=== PATIENT | male | born 1960 | race Caucasian/White ===

== ENCOUNTER 2017-12-07 02:47 | Outpatient (CLI) | payer SELFPAY ==
[2017-12-07 09:47] LABS: CREATININE 1.87 mg/dL (0.70-1.30); Estimated GFR 37.14 (mL/min/1.73m2)
== END 2017-12-07 02:48 ==
PROVIDERS: PCP General Practice; Visit Provider Internal Medicine Nephrology
DX: N18.1 Chronic kidney disease, stage 1 (principal)
CPT/HCPCS: 36415; 82565

== ENCOUNTER 2018-02-22 12:03 | Outpatient (REF) | payer BC, SELFPAY ==
[2018-02-23 11:06] LABS: Campylobacter PCR SEE COMMENTS; Salmonella PCR SEE COMMENTS; Shiga Toxin PCR SEE COMMENTS; Shigella/Enteroinvasive Ecoli SEE COMMENTS
== END 2018-02-22 12:23 ==
LOC: LBN 12:03
PROVIDERS: PCP General Practice; Visit Provider General Practice
DX: R19.7 Diarrhea, unspecified (principal)
CPT/HCPCS: 87505; 83630; 87177; 87324

== ENCOUNTER 2018-04-02 07:13 | Day surgery (SDC) | payer BC, SELFPAY ==
--- NOTE | 2018-04-02 06:21 | W.COLOREPORT ---
Date of service: 04/02/18 Time of Service: 07:55 Colonoscopy Report Date of procedure: 04/02/18 Pre-op diagnosis general: Family histoey of colon cancer/ screening colonoscopy Post-op diagnosis procedure note: other (sigmoid polyps) Procedure: Colonoscopy with polypectomy by cold forceps Surgeon: Ledy Johnson Anesthesia proc note operative: MAC (Teodora Higgins CRNA) Estimated blood loss (mL): 3 Pathology: other (sigmoid polyp x3) Complications: None Disposition: same day Indications: Mr. Bowers is a pleasant 57-year-old gentleman with a family history of colon cancer who was seen in the office for another screening colonoscopy. His last colonoscopy was in 2009 and was normal. He is supposed to have colonoscopies every 5 years. Risks, benefits and complications were reviewed with him and he wished to proceed. No guarantees were given or implied. Prep: Miralax/Dulcolax Procedure Start Time: 07:55 Procedure End Time: 08:28 Retraction Time: 18 minutes Findings: # small and sessile polyps in the distal sigmoid colon/ proximal rectum Procedure Description: After informed consent was obtained the patient was taken to the procedure room and placed in a left decubitous position. Monitors were applied and a time out was done. The patients name, date of , procedure, allergies to medications and metal in their body was reviewed. The patient was then sedated. Once sedated and comfortable a rectal exam was done. External exam was normal. Internal exam revealed a normal sphincter tone and no palpable masses. The prostate felt smooth but large. The scope was then introduced and retro-flexed. Grade 1 internal hemorrhoids were identified. The scope was then advanced to the cecum without difficulty. The TI and appendiceal orifice were identified. The prep was good. The scope was then slowly retracted over 18 minutes back into the rectum. 3 small, sessile polyps were removed in the distal sigmoid/ proximal rectum. The scope was removed and the patient was woken up and taken back to Same day surgery in stable condition. The patient tolerated the procedure well and there were no immediate complications. Follow up: The patient should follow up in 3-5 years unless they develop changes in bowel habits or other new gastrointestinal complaints.
--- NOTE | 2018-04-02 06:24 | PDOC.DSDIS_ITS ---
Discharge Plan Disposition Patient Disposition: HOME Condition: Good Discharge Details Reason For Visit: SCREENING Attending Provider: Ledy Johnson Primary Care Provider: Paco Meehan Home Meds and New Rx's Prescriptions: Discontinued bisacodyl [Dulcolax (bisacodyl)] 5 mg tablet,delayed release (DR/EC) 5 mg PO ONCE Qty: 4 RF: 0 polyethylene glycol 3350 17 gram/dose powder 255 g PO ONCE Qty: 255 RF: 0 Discharge Instructions Instructions: Colonoscopy (DC) Additional Instructions: Findings: 3 small polyps Follow up: 3-5 years Please call if you develop: fevers >101.5 Nausea or vomiting Abdominal pain that is not transient DAY SURGERY UNIT POST COLONOSCOPY INSTRUCTIONS 1. Because there will be medication in your system for the next 24 hours, you may feel a little sleepy. Your coordination will be affected. Therefore: a. Do not drive or operate dangerous equipment for 24 hours. b. Do not drink alcohol beverages for 24 hours (not even beer). c. Plan to go home and rest for the day. 2. Generally there are no restrictions on your activity after a day or so has gone by, but you may feel a bit fatigued for a few days. 3 After you arrive home you may have a light meal and return to a normal diet as you can tolerate it without feeling sick to your stomach. 4. After surgery, you may feel pain or discomfort. This should be only transient , but if it persists please contact your doctor. 5. If there are any questions regarding the findings of your procedure, please feel free to contact your doctor. 6. If you are unable to contact your doctor with a problem, contact the hospital at [phone]. 7. Continue all your regular medications unless directed otherwise. I understand the above instructions and have no questions. Signature of Patient or Responsible Adult Escort Date/Time Name of Responsible Adult Escort Signature of Nurse Date/Time Activity:: Activity as Tolerated Diet:: As Tolerated Discharge Orders Discharge Orders: Discharge Order (Routine); Ordered 04/02/18 Ordered By: Ledy Johnson DS: Diagnosis Discharge Diagnosis (1) Colon polyps: Status: Acute (2) Family history of colon cancer in mother: Status: Acute (3) S/P colonoscopy: Status: Acute
[2018-04-02 07:24] VITALS: BP 129/85; PULSE 91; RESP 18; TEMP 36.2; O2SAT 100
[2018-04-02] MEDS: Lactated Ringers 1,000 ML 80 ML IV (07:48)
--- NOTE | 2018-04-02 08:25 | BOWEL_PTH ---
PATIENT: Enrike Bowers LOC: [facility] U#:[id number] AGE/SX: 57/M ROOM: RE04/02/[address]: Ledy Johnson MD : 1960 BED: DIS: 04/02/2018 SPEC #: [id number] RECD: 04/02/18 12:21 STATUS: RAYMUNDO REQ #: [id number] DEMAR: 04/02/18 08:[address]: Ledy Johnson DEPT: Surgical Specimen RECD BY: Michaela Scherer ENTERED: 04/02/18 12:21 SP TYPE: Bowel OTHR DR: Paco Meehan Tissues: 1 - BIOPSY BOWEL Procedures: GROSS AND MICRO LEVEL 4 Comments: [id number]
[2018-04-02 09:04] VITALS: BP 127/87; PULSE 60; RESP 16; TEMP 36.7; O2SAT 98
== END 2018-04-02 09:34 | disposition home or self-care (01) ==
LOC: SUR 07:13
PROVIDERS: PCP General Practice; Visit Provider Surgery
PROC: 0DJD8ZZ Inspection of Lower Intestinal Tract, Via Natural or Artificial Opening Endoscopic (ICD-10-PCS; CPT 45378; principal; 2018-04-02 08:30)
DX: Z12.11 Encounter for screening for malignant neoplasm of colon (principal); K63.5 Polyp of colon; K64.0 First degree hemorrhoids; Z80.0 Family history of malignant neoplasm of digestive organs; I10 Essential (primary) hypertension
CPT/HCPCS: 45380; 88305

== ENCOUNTER 2018-04-14 09:04 | Emergency (ER) | payer BC, SELFPAY ==
[2018-04-14 09:08] VITALS: BP 143/90; PULSE 95; RESP 16; TEMP 36.7; O2SAT 99
--- NOTE | 2018-04-14 09:27 | ED.GENADUL_ITS ---
Discharge Plan Disposition Patient Disposition: HOME Condition: Good Discharge Details Chief Complaint: Abd Prob Clinical Impression: Enlarged prostate, Abdominal fullness Primary Care Provider: Paco Meehan ED Provider: Jsoeph Jaffe Home Meds and New Rx's Prescriptions: New tamsulosin [Flomax] 0.4 mg capsule 0.4 mg PO DAILY Qty: 7 RF: 0 Discharge Instructions Instructions: Benign Prostatic Hypertrophy (ED), Gas and Bloating (ED) Additional Instructions: Please take the medication as directed as a trial for your symptoms. If you notice any lightheadedness please stop taking it right away. Please follow-up with Dr. Carrasco at your scheduled appointment this week. If you notice any worsening of your symptoms, or any new symptoms such as vomiting, diarrhea, fever, chills, shortness of breath, chest pain, numbness, weakness, or fainting , please return immediately to the emergency department for reevaluation. Please follow up with your primary care provider as soon as possible for reassessment and reevaluation. As always, it was a pleasure participating in your medical care today. Referrals: Paco Meehan MD [Primary Care Provider] - Medical Decision Making This is a very pleasant 57-year-old male who presents for symptoms of abdominal pain for the last 3+ months, as well as shortness of breath and fatigue for the last month, slightly worsening abdominal pain in the last night. He has had a colonoscopy within the past 12 days with no significant abnormalities aside for 3 polyps at that point. He denies any significant chest pain, arm neck or shoulder pain. He does have some mild chest pressure with his associated shortness of breath for the last month. Denies PE risk factors such as recent long car rides, immobilization, recent surgery, prior history of DVT or PE, family history of PE or DVT, morbid obesity, exogenous estrogen and smoking, hemoptysis, history of recent cancer chemotherapy. The patient is PERC positive secondary to his age, however Wells score is 0 placing him in the lowest risk group. The patient's symptoms are certainly slightly atypical for any acute process especially with the chronicity of this. He shows no concerning abdominal exam findings, and he has reassuring vital signs. Patient did have a nephrectomy in the past secondary to his renal cancer, because of this he has chronic decreased GFR and creatinine. We will order a d-dimer, get a CT scan of his chest abdomen and pelvis due to the lack of focality with his symptomatology, and the risk for malignancy. We will evaluate for cardiac etiology which I feel is definitely less likely. We will rehydrate, reassess. The patient's epigastric and abdominal pain I am concern for potential gastric ulcer. He has not yet had an endoscopy, this symptoms seem to be clinically consistent with gastritis. We will perform a GI cocktail as well at this time. EKG 9: 29 Rate 67, intervals normal, sinus rhythm, no ST elevations or depressions, no T wave inversions, no Q waves. Normal EKG 1:02 PM Patient's laboratory workup has returned and is negative for any acute process. No white count, normal electrolytes, creatinine is elevated at 2.09 however this is near his chronic baseline. Patient was rehydrated with 1 L of normal saline. Patient's troponin, lipase, and other laboratory workup has returned benign. The patient's TSH was slightly high at 4.43, however reflex T4 was normal. EKG benign. Patient CT scan of his chest abdomen and pelvis demonstrates no acute process. No evidence of GI issue, obstruction, or other significant abnormality. The prostate is enlarged though, greater than 5 cm. Recommended urology for follow-up. Patient does have a close relationship with Dr. Carrasco, and is already scheduled to have an appointment later this week. He has no symptoms of hematuria or urinary tract infection. Unfortunately although the patient has no significant pain he still does have mild fullness in his abdomen. His left upper quadrant pain has improved. The reason for the fullness I am unsure, may be accommodation of constipation, or less likely secondary to his prostate. He shows no signs of severe retention. With reassuring vital signs, normal workup, negative imaging I do feel that he is safe for discharge home with close follow-up with his PCP. I did discuss with him his TSH levels, as well as the size of his prostate needing follow-up with Danilo. Additionally we will do a trial of Flomax secondary to the patient's sensation of fullness, as well as his notable prostatic hypertrophy, feel that though unlikely this may be a component of the cause of his symptomatology. Additionally I did discuss with him potential outpatient testing for testosterone levels. With no signs of an acute abnormality, I feel the patient is safe for discharge home with close follow-up. We discussed red flags which to return the patient understands. I have extensively reviewed the treatment plan and discharge instructions with the patient and their family. I have addressed all patient concerns at this time. The patient and family was made aware of what symptoms to monitor for that would warrant a return to the emergency department. Discussed the plan with the patient and family, they demonstrate verbal understanding and agreement with our assessment and plan at this time. CLINICAL HISTORY: 57 years old, male; Signs and symptoms; Abdominal tenderness; Shortness of breath; Prior surgery; Surgery date: 6+ months; Surgery type: Nephrectomy x2 years ago; Patient HX: SOB x6 weeks, epigastric pain x6 weeks. TECHNIQUE: Axial computed tomography images of the abdomen and pelvis without contrast. All CT scans at this facility use at least one of these dose optimization techniques: automated exposure control; mA and/or kV adjustment per patient size (includes targeted exams where dose is matched to clinical indication); or iterative reconstruction. Coronal and sagittal reformatted images were created and reviewed. COMPARISON: CT CHEST FOR PULMONARY EMBOLUS 09/16/2016 9:02 PM FINDINGS: Lower thorax: See report for CT chest ABDOMEN: Liver: Normal. No mass. Gallbladder and bile ducts: Normal. No calcified stones. No ductal dilation. Pancreas: Normal. No ductal dilation. Spleen: Normal. No splenomegaly. Adrenals: Normal. No mass. Kidneys and ureters: Left nephrectomy 2.4 cm cyst in the lateral aspect of the right kidney. 1 cm cyst anterior right kidney Stomach and bowel: Normal. No obstruction. No mucosal thickening. Appendix: No evidence of appendicitis. PELVIS: Bladder: Unremarkable as visualized. Reproductive: The prostate is enlarged, greater than 5 cm. Recommend urology consult ABDOMEN and PELVIS: Intraperitoneal space: Mild amount of ascites adjacent to the liver Bones/joints: No acute fracture. No dislocation. Soft tissues: Unremarkable. Vasculature: Normal. No abdominal aortic aneurysm. Lymph nodes: Normal. No enlarged lymph nodes. IMPRESSION: The prostate is enlarged, greater than 5 cm. Recommend urology consult Left nephrectomy Dictated and Authenticated by: Raoul Muir MD. HPI General Date/Time Provider Initiated Documentation: 04/14/18 09:09 . HPI Narrative: This is a pleasant 57-year-old with a past medical history of renal cancer with subsequent left nephrectomy, and no other significant medical problems who presents today for evaluation of nominal pain and mild shortness of breath and notable fatigue, all of which have been present for the last 3 months. The abdominal pain did worsen today though. Regards to his chronic abdominal pain the patient states that he has a strong family history of colon cancer, his last colonoscopy was on 04/02 where 3 polyps were found. No other significant abnormalities. Endoscopy was not performed at that time, and he is getting a referral to [facility] for further workup in April. Patient has had some mild shortness of breath and notable fatigue over the last month as well. The shortness of breath is present with activity. He denies any associated chest pressure, arm neck or shoulder pain. He denies any history of cardiac disease. He does have a mild amount of chest heaviness associated with the symptoms of shortness of breath during exertion. He has had 2 stress tests in the past, the most recent was 1 year ago. He has no cardiac risk factors of tobacco abuse, family history, high cholesterol, hypertension, or diabetes. Patient does exercise roughly 3-4 times per week, however over the last month because of the shortness of breath and fatigue she has not been exercising. Regards to the patient's abdominal pain he states that last night he did get notably worse, he describes it as a fullness in his epigastric, left and right sides of his abdomen. He has had no vomiting or diarrhea. He has been eating well. He does have some mild associated constipation, but this is been chronic for the last few months. He denies any hematochezia, melena, acholic stool, hematemesis. He does admit to an occasional burning sensation in his left upper quadrant, in his left chest. He denies any particular aggravating or relieving component of his symptoms. Patient denies any other complaints at this time. Related Data Home Medications Medication Instructions Recorded Confirmed tamsulosin [Flomax] 0.4 mg PO DAILY #7 cap 04/14/18 Previous Rx's Medication Instructions Recorded tamsulosin [Flomax] 0.4 mg PO DAILY #7 cap 04/14/18 Allergies Allergy/AdvReac Type Severity Reaction Status Date / Time Iodinated Contrast- Oral and AdvReac Severe Other (See Unverified 04/14/18 09:23 IV Dye Comment) lisinopril AdvReac Severe COUGH & Verified 04/14/18 09:15 ?ANGIOEDEMA General Stated Complaint: Abd Prob MIAH: 3 Review of Systems Review of Systems All systems reviewed & are unremarkable except as noted in HPI and below PFSH Medical History Colon polyps (Acute ~04/02/18) Diarrhea (Acute) Atopic dermatitis HTN (hypertension) Surgical History S/P colonoscopy (Acute ~04/02/18) Radical Nephrectomy (05/27/16) Family History Mother Personal history of malignant neoplasm Stroke Father No problems noted. Sister Essential hypertension Sister No problems noted. Social History adopted: No household members: spouse and children Smoking/Tobacco Use Status: Never alcohol intake: former substance use type: does not use Exam Narrative Exam Narrative: 1.Const: Well-nourished, Well-developed, appearing stated age 2.Eyes: PERRL, no conjunctival injection, and symmetrical lids. 3.ENT: Atraumatic external nose and ears. Moist MM. Neck: Symmetric, trachea midline, No thyromegaly. 4.CVS: +S1/S2, No murmurs or gallops. Peripheral pulses 2+ and equal in all extremities. Brisk capillary refill in all extremities. 5.RESP: Unlabored respiratory effort. Clear to auscultation bilaterally. No wheezes rales or rhonchi 6.GI: Soft, Nontender/Nondistended, No hepatosplenomegaly. No guarding or rebound. Negative Cevallos sign, no pain at McBurney's point. Negative obturator and psoas sign. No flank or CVA tenderness. Genital exam demonstrates normal male genitalia with a circumcised penis, non-tender testicles, normal cremasteric reflex. No evidence of hernia in the scrotum or the groin. 7.MSK: Normocephalic/Atraumatic, Extremities w/o deformity or ttp No cyanosis or clubbing, Normal movement of all extremities 8.Skin: Warm, Dry. No rashes or lesions. 9.Neuro: analytics director II-XII grossly intact. Sensation grossly intact, no focal neurologic deficits. 10.Psych: (AAO) x3. Appropriate mood and affect Course Vital Signs Temperature 36.7 C 04/14/18 09:08 Pulse 95 H 04/14/18 09:08 Respiratory Rate 16 04/14/18 09:08 Blood Pressure 143/90 H 04/14/18 09:08 Pulse Oximetry 99 04/14/18 09:08 Temperature 36.7 C 04/14/18 09:08 Temperature Source Skin 04/14/18 09:08 Pulse 95 H 04/14/18 09:08 Respiratory Rate 16 04/14/18 09:08 Respiratory Effort Non-Labored 04/14/18 09:13 Blood Pressure 143/90 H 04/14/18 09:08 Pulse Oximetry 99 04/14/18 09:08 Pain Level 6 04/14/18 09:08
[2018-04-14] MEDS: Dicyclomine 20 MG TAB PO (09:28)
[2018-04-14] MEDS: Normal Saline 1,000 ML 1000 ML IV (09:42)
[2018-04-14 09:47] LABS: Abs Immature Grans 0.01 k/cumm (0.0-0.09); Absolute Basophil Count 0.03 k/cumm (0.0-0.2); Absolute Eosinophil Count 0.41 k/cumm (0.0-0.7); Absolute Monocyte Count 0.44 k/cumm (0.11-0.7); Absolute Neutrophil Count 2.99 k/cumm (1.2-6.7); Basophils % 0.6; Eosinophils % 7.6; HCT 38.8 % (40.0-50.0); HGB 13.6 g/dL (13.5-17.5); Immature Grans % 0.2; Lymphocytes % 27.9; Mean Corp. HGB Concentration 35.1 g/dL (32.0-36.0); Mean Corpuscular Hemoglobin 30.9 pg (27.0-33.0); Mean Corpuscular Volume 88.2 fL (80-95); Mean Platelet Volume 10.5 fL (8.0-11.0); Monocytes % 8.2; Neutrophils % 55.5; Platelet Count 199 x1000/uL (130-400); RBC Distribution Width 12.1 % (11.8-14.1); White Blood Cell Count 5.38 k/cumm (4.4-10.8)
[2018-04-14 10:18] LABS: ALT 47 U/L (12-78); AST 29 U/L (15-37); Albumin 3.7 g/dL (3.4-5.0); Alkaline Phosphatase 57 U/L (46-116); Anion Gap 5.1 mmol/L (3-11); BUN 20 mg/dL (7-18); Bilirubin, Total 0.6 mg/dL (0.2-1.0); CO2 31.9 mmol/L (21.0-32.0); CREATININE 2.09 mg/dL (0.70-1.30); Calcium 8.9 mg/dL (8.5-10.1); Chloride 104 mmol/L (98-107); Estimated GFR 32.67 (mL/min/1.73m2); Glucose 85 mg/dL (70-100); Lipase 151 U/L (73-393); Potassium 4.2 mmol/L (3.5-5.1); Sodium 141 mmol/L (136-145); TSH 4.43 uIU/mL (0.358-3.74); Total Protein 7.6 g/dL (6.4-8.2)
[2018-04-14 10:19] LABS: Troponin I < 0.02 ng/mL (0.00-0.06)
[2018-04-14 10:20] LABS: D-Dimer 451 ng/mlFEU (<500)
[2018-04-14 11:17] LABS: FREE T4 0.98 ng/dL (0.76-1.46)
--- NOTE | 2018-04-14 11:45 | DI.CT_ITS ---
SYMPTOM/DIAGNOSIS: SOB, GENERALIZED ABD PAIN, EPIGASTRIC PAIN CT CHEST, ABDOMEN AND PELVIS: 04/14 CT examination of the chest, abdomen and pelvis was performed with oral contrast administration only. The lungs are clear and the tracheobronchial tree appears intact. Incidental 2 mm right basilar intrapulmonary nodule unchanged from 01/20/17. Tracheobronchial tree appears intact. No gross mediastinal adenopathy. No gross thoracic aortic aneurysm. Normal diameter of pulmonary arteries. No pleural effusion or pneumothorax. Liver and spleen are unremarkable by noncontrast criteria. Pancreas appears intact. No biliary dilatation. Gallbladder is unremarkable by noncontrast criteria. Abdominal aorta is of normal diameter. Appendix not specifically identified but there is no evidence of appendicitis or diverticulitis. Previous left nephrectomy noted, unremarkable appearance of left renal fossa. Right kidney normal in appearance except for previously noted right renal cyst. No urinary tract calcification seen. No evidence of bowel obstruction. No retroperitoneal or pelvic adenopathy identified. CONCLUSION: No evidence of acute process involving the chest, abdomen or pelvis. Previous left nephrectomy noted.
[2018-04-14 11:47] LABS: Bilirubin Negative (Negative); Blood Trace-intact (Negative); Clarity Clear; Glucose Negative (Negative); Ketones Negative (Negative); Leukocyte Esterase Negative (Negative); Nitrite Negative (Negative); Urobilinogen 0.2 EU/dL (Up TO 0.2); pH 6.5 (5-8)
[2018-04-14 11:58] LABS: Bacteria Negative HPF (Negative); C & S Indicated? No; Casts Negative LPF (Negative); Crystals Negative HPF (Negative); Epithelial Cells Negative HPF (Negative); Mucus Negative (Negative); RBC Negative (0-2); WBC Negative HPF (0-5)
--- NOTE | 2018-04-14 12:08 | DI.VRAD_ITS ---
EXAM: CT Chest Without Contrast EXAM DATE/TIME: 04/14/2018 9:30 AM CLINICAL HISTORY: 57 years old, male; Signs and symptoms; Abdominal tenderness; Shortness of breath; Prior surgery; Surgery date: 6+ months; Surgery type: Nephrectomy x2 years ago; Patient HX: SOB x6 weeks, epigastric pain x6 weeks. TECHNIQUE: Axial computed tomography images of the chest without intravenous contrast. All CT scans at this facility use at least one of these dose optimization techniques: automated exposure control; mA and/or kV adjustment per patient size (includes targeted exams where dose is matched to clinical indication); or iterative reconstruction. Coronal and sagittal reformatted images were created and reviewed. COMPARISON: CT CHEST FOR PULMONARY EMBOLUS 09/16/2016 9:02 PM FINDINGS: Lungs: No focal consolidation. The Bronchiectasis Pleural space: Normal. No pneumothorax. No pleural effusion. Heart: Coronary artery calcifications may indicate coronary artery disease Aorta: Normal. No aortic aneurysm. Lymph nodes: Unremarkable. No enlarged lymph nodes. Bones/joints: Unremarkable. No acute fracture. Soft tissues: Unremarkable. IMPRESSION: No acute process EXAM: CT Abdomen and Pelvis Without Contrast EXAM DATE/TIME: 04/14/2018 9:30 AM CLINICAL HISTORY: 57 years old, male; Signs and symptoms; Abdominal tenderness; Shortness of breath; Prior surgery; Surgery date: 6+ months; Surgery type: Nephrectomy x2 years ago; Patient HX: SOB x6 weeks, epigastric pain x6 weeks. TECHNIQUE: Axial computed tomography images of the abdomen and pelvis without contrast. All CT scans at this facility use at least one of these dose optimization techniques: automated exposure control; mA and/or kV adjustment per patient size (includes targeted exams where dose is matched to clinical indication); or iterative reconstruction. Coronal and sagittal reformatted images were created and reviewed. COMPARISON: CT CHEST FOR PULMONARY EMBOLUS 09/16/2016 9:02 PM FINDINGS: Lower thorax: See report for CT chest ABDOMEN: Liver: Normal. No mass. Gallbladder and bile ducts: Normal. No calcified stones. No ductal dilation. Pancreas: Normal. No ductal dilation. Spleen: Normal. No splenomegaly. Adrenals: Normal. No mass. Kidneys and ureters: Left nephrectomy 2.4 cm cyst in the lateral aspect of the right kidney. 1 cm cyst anterior right kidney Stomach and bowel: Normal. No obstruction. No mucosal thickening. Appendix: No evidence of appendicitis. PELVIS: Bladder: Unremarkable as visualized. Reproductive: The prostate is enlarged, greater than 5 cm. Recommend urology consult ABDOMEN and PELVIS: Intraperitoneal space: Mild amount of ascites adjacent to the liver Bones/joints: No acute fracture. No dislocation. Soft tissues: Unremarkable. Vasculature: Normal. No abdominal aortic aneurysm. Lymph nodes: Normal. No enlarged lymph nodes. IMPRESSION: The prostate is enlarged, greater than 5 cm. Recommend urology consult Left nephrectomy Dictated and Authenticated by: Raoul Muir MD. Ordering:WILLIAMS Ruiz MD
[2018-04-14 12:29] VITALS: BP 125/85; PULSE 68; RESP 16; O2SAT 100
== END 2018-04-14 13:13 | disposition home or self-care (01) ==
PROVIDERS: Emergency Provider Student in an Organized Health Care Education/Training Program; PCP General Practice
DX: R10.13 Epigastric pain (principal); R14.0 Abdominal distension (gaseous); R06.02 Shortness of breath; Z90.5 Acquired absence of kidney; I10 Essential (primary) hypertension
CPT/HCPCS: 36415; 71250; 80053; 83690; 93005; 96360; 96361; 99285; 74176; 81003; 81015; 84439; 84443; 84484; 85025; 85379; 93010

== ENCOUNTER 2018-04-23 00:14 | Outpatient (CLI) | payer BC, SELFPAY | END 2018-04-23 00:34 | PROVIDERS: PCP General Practice; Visit Provider Nurse Practitioner Gerontology | DX: C64.2 Malignant neoplasm of left kidney, except renal pelvis (principal); I10 Essential (primary) hypertension; R35.1 Nocturia; N40.0 Benign prostatic hyperplasia without lower urinary tract symptoms | CPT/HCPCS: 99213 ==

== ENCOUNTER 2018-09-05 07:56 | Outpatient (CLI) | payer BC, SELFPAY ==
[2018-09-05 11:09] LABS: Mean Corpuscular Hemoglobin 30.4 pg (27.0-33.0); Mean Corpuscular Volume 86.8 fL (80-95); Mean Platelet Volume 10.5 fL (8.0-11.0); Platelet Count 218 x1000/uL (130-400); RBC 4.61 m/cumm (4.50-6.00); RBC Distribution Width 12.2 % (11.8-14.1); White Blood Cell Count 6.82 k/cumm (4.4-10.8)
[2018-09-05 15:12] LABS: ALT 41 U/L (12-78); AST 26 U/L (15-37); Alkaline Phosphatase 55 U/L (46-116); Anion Gap 8.4 mmol/L (3-11); BUN 25 mg/dL (7-18); Bilirubin, Total 0.5 mg/dL (0.2-1.0); CO2 28.6 mmol/L (21.0-32.0); CREATININE 1.71 mg/dL (0.70-1.30); Calcium 8.8 mg/dL (8.5-10.1); Chloride 100 mmol/L (98-107); Estimated GFR 41.18 (mL/min/1.73m2); Glucose 83 mg/dL (70-100); Potassium 4.5 mmol/L (3.5-5.1); Sodium 137 mmol/L (136-145); Total Protein 7.7 g/dL (6.4-8.2)
== END 2018-09-05 08:16 ==
PROVIDERS: PCP General Practice; Visit Provider Urology
DX: C64.2 Malignant neoplasm of left kidney, except renal pelvis (principal)
CPT/HCPCS: 36415; 80053; 85027

== ENCOUNTER 2018-09-26 00:43 | Outpatient (CLI) | payer BC, SELFPAY ==
--- NOTE | 2018-09-26 08:31 | DI.RAD_ITS ---
SYMPTOM/DIAGNOSIS: TRAUMA, PAIN LEFT ELBOW: Three views. No acute fracture or dislocation is seen. The soft tissues are unremarkable. IMPRESSION: No acute abnormality.
== END 2018-09-26 01:03 ==
PROVIDERS: PCP General Practice; Visit Provider General Practice
DX: M25.522 Pain in left elbow (principal)
CPT/HCPCS: 73080

== ENCOUNTER 2019-04-01 00:16 | Outpatient (CLI) | payer BC, SELFPAY ==
[2019-04-01 08:09] LABS: HCT 38.6 % (40.0-50.0); HGB 13.4 g/dL (13.5-17.5); Mean Corp. HGB Concentration 34.7 g/dL (32.0-36.0); Mean Corpuscular Hemoglobin 30.4 pg (27.0-33.0); Mean Corpuscular Volume 87.5 fL (80-95); Mean Platelet Volume 10.7 fL (8.0-11.0); Platelet Count 218 x1000/uL (130-400); RBC 4.41 m/cumm (4.50-6.00); RBC Distribution Width 12.3 % (11.8-14.1); White Blood Cell Count 5.67 k/cumm (4.4-10.8)
[2019-04-01 08:51] LABS: ALT 40 U/L (16-63); AST 25 U/L (15-37); Albumin 3.7 g/dL (3.4-5.0); Alkaline Phosphatase 47 U/L (46-116); Anion Gap 7.1 mmol/L (3-11); BUN 26 mg/dL (7-18); Bilirubin, Total 0.4 mg/dL (0.2-1.0); CO2 29.9 mmol/L (21.0-32.0); CREATININE 1.77 mg/dL (0.70-1.30); Calcium 8.7 mg/dL (8.5-10.1); Chloride 102 mmol/L (98-107); Estimated GFR 39.44 (mL/min/1.73m2); Glucose 92 mg/dL (74-106); Potassium 4.8 mmol/L (3.5-5.1); Sodium 139 mmol/L (136-145); Total Protein 7.2 g/dL (6.4-8.2)
== END 2019-04-01 00:36 ==
PROVIDERS: Urology; PCP General Practice; Visit Provider General Practice
DX: C64.2 Malignant neoplasm of left kidney, except renal pelvis (principal)
CPT/HCPCS: 36415; 80053; 85027

== ENCOUNTER 2019-04-03 01:20 | Outpatient (CLI) | payer BC, SELFPAY ==
[2019-04-03] MEDS: Omnipaque 350 MG/ML 50 ML BTL IJ (08:41)
[2019-04-03] MEDS: Breeza Beverage 473 ML BTL PO ×2 (08:43)
--- NOTE | 2019-04-03 09:07 | DI.CT_ITS ---
EXAM: CT CHEST/ABD/PEL WO CLINICAL HISTORY: RENAL CELL CA LT KIDNEY, C64.2, ? METS. TECHNIQUE: Imaging Protocol: Axial computed tomography images with coronal and sagittal reformatted images were created and reviewed CONTRAST MATERIAL: Intravenous: Omnipaque 350 Contrast volume:0 mL contrast route:IV - Oral: Yes COMPARISON: CT chest/abd/pel wo from 04/14/2018 FINDINGS: CHEST: Tracheobronchial tree: Patent where visualized. Mediastinum and Kinsey: No dominant adenopathy or fluid collection. Heart: No cardiomegaly or pericardial effusion. Coronary artery calcifications are present. Pulmonary parenchyma: No consolidation is present. There is a stable nodule in the right lower lobe medially. No new pulmonary nodules are present. No architectural distortion. Pleura: No effusion or pneumothorax. Aorta: Thoracic portion non-dilated. ABDOMEN: Liver: Normal density. No mass is identified within the limits of this non-contrast examination. Gallbladder and biliary tract: No radiodense calculus or dilation. Pancreas: Normal density, no abnormal calcifications or inflammatory process. Spleen: Normal. Kidneys: Normal size, contour and axis. No radiodense stones or obstructive uropathy. The patient is status post left nephrectomy. There are cortical hypodensities seen in the right kidney which appear stable and likely reflect cysts. Adrenal glands: No masses seen. Lymph nodes: Within normal limits. Aorta: Abdominal portion non-dilated. PELVIS: Bladder: Symmetric distention, no gross wall thickening. Bowel: No obstruction or bowel wall thickening. Normal appendix. Peritoneal cavity: No ascites, collection or mesenteric inflammatory response. Bones: Within normal limits. Reproductive organs: The prostate is enlarged. IMPRESSION: 1. No change in appearance of the chest, abdomen and pelvis from 04/14/2018. 2. Status post left nephrectomy. DATA REPOSITORY: All CT scans at this facility are submitted to the National Radiology Data Registry (NRDR) Dose Index Registry (DIR) with the [employer] ([employer]). RADIATION OPTIMIZATION: All CT scans at this facility use at least one of these dose optimization te chniques: automated exposure control; mA and/or kV adjustment per patient size (includes targeted exa ms where dose is matched to clinical indication); or iterative reconstruction.
== END 2019-04-03 01:40 ==
PROVIDERS: PCP General Practice; Visit Provider Urology
DX: C64.2 Malignant neoplasm of left kidney, except renal pelvis (principal); Z12.89 Encounter for screening for malignant neoplasm of other sites; R91.1 Solitary pulmonary nodule; Z90.5 Acquired absence of kidney; N40.0 Benign prostatic hyperplasia without lower urinary tract symptoms
CPT/HCPCS: 71250; 74176; Q9967

== ENCOUNTER 2019-04-21 20:45 | Inpatient (IN) | payer BC, SELFPAY ==
[2019-04-21] VITALS (16 sets, daily range): BP systolic 107–140; BP diastolic 73–91; PULSE 57–75; RESP 11–23; TEMP 37; O2SAT 95–100
[2019-04-21] MEDS: Aspirin 81 MG CHEW 324 MG CH (21:24)
[2019-04-21 21:40] LABS: Abs Immature Grans 0.02 k/cumm (0.0-0.09); Absolute Basophil Count 0.04 k/cumm (0.0-0.2); Absolute Eosinophil Count 0.54 k/cumm (0.0-0.7); Absolute Lymphocyte Count 2.52 k/cumm (1.2-3.4); Absolute Monocyte Count 0.76 k/cumm (0.11-0.7); Absolute Neutrophil Count 2.98 k/cumm (1.2-6.7); BE (Venous) 5.4 mmol/L (-3-3); Basophils % 0.6; Eosinophils % 7.9; HCO3 (Venous) 31 mmol/L (22-28); HCT 38.9 % (40.0-50.0); HGB 13.4 g/dL (13.5-17.5); Immature Grans % 0.3; Lymphocytes % 36.7; Mean Corp. HGB Concentration 34.4 g/dL (32.0-36.0); Mean Corpuscular Hemoglobin 30.5 pg (27.0-33.0); Mean Corpuscular Volume 88.4 fL (80-95); Monocytes % 11.1; Neutrophils % 43.4; O2 Sat (Venous) 64 % (70-80); Platelet Count 237 x1000/uL (130-400); RBC Distribution Width 12.7 % (11.8-14.1); TCO2 (Venous) 28 mmol/L (22-29); White Blood Cell Count 6.86 k/cumm (4.4-10.8); pCO2 (Venous) 53 mm/Hg (34-47); pH (Venous) 7.37 (7.32-7.43); pO2 (Venous) 34 mm/Hg (28-44)
--- NOTE | 2019-04-21 21:50 | DI.RAD_ITS ---
EXAM: XR CHEST 2V PA LATERAL CLINICAL HISTORY: sob. TECHNIQUE: 2D digital imaging was performed. COMPARISON: CHEST 2 VIEWS PA,LAT from 08/11/2017 FINDINGS: LUNGS: Clear. No pleural abnormality seen. HEART: Normal. MEDIASTINUM: Normal. OTHER FINDINGS:Normal. IMPRESSION: No acute pulmonary findings.
[2019-04-21 21:55] LABS: PTT Activated 23.7 sec (21.0-31.4); Prothrombin Time 10.4 sec (9.3-11.0)
--- NOTE | 2019-04-21 21:58 | ED.GENADUL_ITS ---
Discharge Plan Disposition Patient Disposition: [facility] INPATIENT Condition: Good Discharge Details Chief Complaint: RespSymp Clinical Impression: Chest pain Primary Care Provider: Paco Gates ED Provider: Joseph Jaffe Medical Decision Making This is a 58-year-old male with a past medical history of renal cell carcinoma and nephrectomy, previous colon polyps, atopic dermatitis and hypertension. He presents today for evaluation of chest pain and shortness of breath. Patient states that for the last few months he has had a notably progressive chest heaviness shortness of breath that is present with exertion, and gets better with rest. Over the last week though this is notably increased, so much so that if he walks on the treadmill, goes up any stairs whatsoever or even just takes a few steps he begins to get very short of breath. He has associated chest tightness, as well as what he describes as a weight on his chest. No symptoms of tearing, arm neck or shoulder pain. He denies any syncope or lightheadedness. Of note on 04/14/2018 patient was seen and assessed then where he had a CTA of his chest to rule out PE, and a cardiac work-up at that time of troponins and EKG, all of which were unremarkable. He did have an enlarged prostate for which he is followed up with urology. Patient denies any family history of cardiac disease or personal history of cardiac disease. His mother did have a stroke, he denies any current tobacco use, IV or illicit drug use, recent long trips surgeries or procedures. Physical exam is notably unremarkable, EKG is unchanged and shows no evidence of STEMI. Will perform a cardiac work-up. Bedside ultrasound was notably limited cough demonstrates no evidence of large pericardial effusion or gross abnormality. Signs and symptoms inconsistent with dissection. He did have a PE study less than a week ago, and his symptoms are inconsistent with PE. At this time his signs and symptoms are more concerning for stable angina. Aspirin has been given, will give nitroglycerin ointment. Of note on the patient's CT scan last time he did have evidence of coronary artery calcifications. 10:38 PM The patient EKG is unremarkable and unchanged. Chest x-ray shows no acute process per virtual radiology. Troponin normal, laboratory work-up is unremarkable aside for slightly elevated creatinine at 2.56, we will gently rehydrate. His TSH is also notably elevated at 15.29 which is 3 times his level when he was here just a week ago. Still pending free T4. This may certainly be a component of his fatigue and shortness of breath but does not explain his chest pain or chest tightness. I did contact the hospitalist Dr. Sears discussed the case with her. She agrees. We will keep the patient overnight for stress testing tomorrow. I have extensively reviewed the treatment plan with the patient. I have addressed all patient concerns at this time. I have also discussed the plan with the admitting physician and they agree with the current assessment and plan and have agreed to assume responsibility for the patient. All parties demonstrate verbal understanding and agreement with our assessment and plan at this time. EKG 20: 53 Rate 67, intervals normal, sinus rhythm, no significant ST elevations or depressions, no T wave inversions except for in aVR. No evidence of STEMI. Review of prior EKG from 04/14/2018 demonstrates no acute changes. HPI General Date/Time Provider Initiated Documentation: 04/21/19 20:53 . HPI Narrative: This is a 58-year-old male with a past medical history of renal cell carcinoma and nephrectomy, previous colon polyps, atopic dermatitis and hypertension. He presents today for evaluation of chest pain and shortness of breath. Patient states that for the last few months he has had a notably progressive chest heaviness shortness of breath that is present with exertion, and gets better with rest. Over the last week though this is notably increased, so much so that if he walks on the treadmill, goes up any stairs whatsoever or even just takes a few steps he begins to get very short of breath. He has associated chest tightness, as well as what he describes as a weight on his chest. No symptoms of tearing, arm neck or shoulder pain. He denies any syncope or lightheadedness. Of note on 04/14/2018 patient was seen and assessed then where he had a CTA of his chest to rule out PE, and a cardiac work-up at that time of troponins and EKG, all of which were unremarkable. He did have an enlarged prostate for which he is followed up with urology. Patient denies any family history of cardiac disease or personal history of cardiac disease. His mother did have a stroke, he denies any current tobacco use, IV or illicit drug use, recent long trips surgeries or procedures. No other complaints modifying factors at this time. Related Data Allergies Allergy/AdvReac Type Severity Reaction Status Date / Time Iodinated Contrast Media AdvReac Severe Other (See Unverified 09/18/18 10:54 Comment) lisinopril AdvReac Severe COUGH & Verified 09/18/18 10:54 ?ANGIOEDEMA General Stated Complaint: RespSymp MIAH: 3 Review of Systems All systems reviewed & are unremarkable except as noted in HPI and below [facility] Medical History (Updated 04/02/18 @ 08:38 by Ledy Johnson MD) Atopic dermatitis Colon polyps (Acute ~04/02/18) Diarrhea (Acute) per dr gates on 03/01/18 but also occassional constipation - elimination diet had no effect, stool studies negative (note that the sample for Cdiff was rejected) HTN (hypertension) Surgical History (Updated 04/02/18 @ 08:38 by Ledy Johnson MD) Radical Nephrectomy (05/27/16) L kidney, laparoscopic. [facility] [place] S/P colonoscopy (Acute ~04/02/18) Family History Mother , CVA at age 78. Personal history of malignant neoplasm Colon CA dx'ed early 70s Stroke Father , Melanoma at age 52. No problems noted. Sister Essential hypertension Sister No problems noted. Social History (Updated 03/12/18 @ 12:39 by DAISY Ca) Smoking/Tobacco Use Status: Never Alcohol Intake: former Drug use: Never Substance use type: does not use Adopted: No Household members: spouse and children What is your relationship status?: Panel score (0-1 are the most socially isolated patients): 1 Do you feel safe in your relationship?: Yes Exam Narrative Exam Narrative: 1.Const: Well-nourished, Well-developed, appearing stated age 2.Eyes: PERRL, no conjunctival injection, and symmetrical lids. 3.ENT: Atraumatic external nose and ears. Moist MM. Neck: Symmetric, trachea midline, No thyromegaly. 4.CVS: +S1/S2, No murmurs or gallops. Peripheral pulses 2+ and equal in all extremities. Brisk capillary refill in all extremities. 5.RESP: Unlabored respiratory effort. Clear to auscultation bilaterally. No wheezes rales or rhonchi 6.GI: Soft, Nontender/Nondistended, No hepatosplenomegaly. No guarding or rebound. 7.MSK: Normocephalic/Atraumatic, Extremities w/o deformity or ttp No cyanosis or clubbing, Normal movement of all extremities. No calf tenderness, no pulse asymmetry. 8.Skin: Warm, Dry. No rashes or lesions. 9.Neuro: nurse infection control II-XII grossly intact. Sensation grossly intact, no focal neurologic deficits. 10.Psych: (AAO) x3. Appropriate mood and affect Course Vital Signs Vital signs: Vital Signs Temperature 37 C 04/21/19 20:53 Pulse 69 04/21/19 20:53 Respiratory Rate 16 04/21/19 20:53 Blood Pressure 140/87 04/21/19 20:53 Pulse Oximetry 100 04/21/19 20:53 Temperature 37 C 04/21/19 20:53 Temperature Source Skin 04/21/19 20:53 Pulse 69 04/21/19 20:53 Respiratory Rate 16 04/21/19 20:53 Respiratory Effort 04/21/19 20:57 Respiratory Depth Normal 04/21/19 20:57 Blood Pressure 140/87 04/21/19 20:53 Pulse Oximetry 100 04/21/19 20:53 Oxygen Delivery Method Room Air 04/21/19 20:53 Oxygen Flow Rate 0 04/21/19 20:53 Pain Level 5 04/21/19 20:53 Lab/Test Results Lab/Test Results: Laboratory Tests Range/Units 04/21/19 04/21/19 21:15 21:15 WBC (4.4-10.8) k/cumm 6.86 RBC (4.50-6.00) m/cumm 4.40 L Hgb (13.5-17.5) g/dL 13.4 L Hct (40.0-50.0) % 38.9 L MCV (80-95) fL 88.4 MCH (27.0-33.0) pg 30.5 MCHC (32.0-36.0) g/dL 34.4 RDW (11.8-14.1) % 12.7 Plt Count (130-400) x1000/uL 237 MPV (8.0-11.0) fL 10.0 Immature Gran % 0.3 Neutrophils % 43.4 Lymphocytes % 36.7 Monocytes % 11.1 Eosinophils % 7.9 Basophils % 0.6 Absolute Neutrophils (1.2-6.7) k/cumm 2.98 Absolute Lymphocytes (1.2-3.4) k/cumm 2.52 Absolute Monocytes (0.11-0.7) k/cumm 0.76 H Absolute Eosinophils (0.0-0.7) k/cumm 0.54 Absolute Basophils (0.0-0.2) k/cumm 0.04 VBG pH (7.32-7.43) 7.37 VBG pCO2 (34-47) mm/Hg 53 H VBG pO2 (28-44) mm/Hg 34 VBG HCO3 (22-28) mmol/L 31 H VBG Total CO2 (22-29) mmol/L 28 VBG O2 Saturation (70-80) % 64 L VBG Base Excess (-3-3) mmol/L 5.4 H
--- NOTE | 2019-04-21 21:59 | NUR.NOTE ---
Nursing Note: Per Dr. lomeli, coffee and sandwich provided to patient. Patient has no other requests at this time.
--- NOTE | 2019-04-21 22:02 | NUR.NOTE ---
Nursing Note: Patient resting with spouse at side. Waiting for lab results. No new c/o or requests at this time
--- NOTE | 2019-04-21 22:04 | DI.VRAD_ITS ---
PROCEDURE INFORMATION: Exam: XR Chest, 2 Views Exam date and time: 04/21/2019 9:52 PM Age: 58 years old Clinical indication: Shortness of breath; Patient HX: SOB off and on since December, worsening tonight TECHNIQUE: Imaging protocol: XR of the chest Views: 2 views. COMPARISON: CR CHEST 2 VIEWS PA,LAT 08/11/2017 9:46 AM FINDINGS: Lungs: Clear lungs. Pleural space: No pneumothorax. No sizable pleural effusion. Heart/Mediastinum: No cardiomegaly. Bones/joints: Unremarkable. IMPRESSION: Clear lungs. Dictated and Authenticated by: Urbano Burrows MD. Ordering:WILLIAMS Ruiz MD
[2019-04-21 22:12] LABS: ALT 35 U/L (16-63); AST 27 U/L (15-37); Albumin 3.4 g/dL (3.4-5.0); Alkaline Phosphatase 51 U/L (46-116); Anion Gap 6.8 mmol/L (3-11); BUN 26 mg/dL (7-18); Bilirubin, Total 0.5 mg/dL (0.2-1.0); CO2 30.2 mmol/L (21.0-32.0); CREATININE 2.56 mg/dL (0.70-1.30); Calcium 8.6 mg/dL (8.5-10.1); Chloride 104 mmol/L (98-107); Estimated GFR 25.76 (mL/min/1.73m2); Glucose 85 mg/dL (74-106); NT-proBNP 85 pg/mL (<300); Potassium 4.3 mmol/L (3.5-5.1); Sodium 141 mmol/L (136-145); TSH (W/Ref FT4) 15.29 uIU/mL (0.36-3.74); Total Protein 7.2 g/dL (6.4-8.2)
[2019-04-21 22:13] LABS: Troponin I < 0.05 ng/Ml (<0.06)
[2019-04-21 22:34] LABS: FREE T4 0.79 ng/dL (0.76-1.46)
--- NOTE | 2019-04-21 23:32 | NUR.NOTE ---
Nursing Note: Patient sleeping in bed, spouse at side. Waiting test results.
[2019-04-22] VITALS (20 sets, daily range): BP systolic 113–129; BP diastolic 69–84; PULSE 58–89; RESP 11–26; TEMP 36.3–36.8; O2SAT 95–100
--- NOTE | 2019-04-22 00:09 | HPE_ITS ---
Date of service: 04/21/19 Time of Service: 23:30 Assessment and Plan Assessment and plan (1) Breathing difficulty: Status: Acute Assessment and plan: Acute on chronic. There are some features of the ev ents that Mr Bowers describes that don't quite match a cardiac picture (agitation/distorted faces after eating fatty meals, for example). However, given the exertional component, I do think that a nuclear stress test is indicated as well as an echo. Check D-dimer. If positive, would obtain a VQ scan - however, would not be able to do nuclear stress test and VQ scan on the same day as they are both nuclear tests, and I do think that the stress test takes priority. I will also order PFT's. Monitor on tele. Check serial troponins. Repeat EKG in am. Start PPI. NPO after midnight. (2) Elevated TSH: Status: Acute Assessment and plan: With normal Free T4. Recheck TSH in am. ?reactive. Will not yet start levothyroxine. (3) Acute kidney injury superimposed on chronic kidney disease: Status: Acute Assessment and plan: In setting of BPH. Will check bladder scans. Gentle IVF. Repeat Cr armaan. (4) BPH associated with nocturia: Status: Acute Assessment and plan: As above. Previously, patient did not like how flomax made him feel. (5) DVT prophylaxis: Status: Acute Assessment and plan: Heparin SC (6) Discharge planning issues: Status: Acute Assessment and plan: Full code History of Present Illness History of Present Illness Chief Complaint: I can't take a deep breath Narrative: Mr Bowers is a 58 year old male with PMHx of L renal cell ca s/p nephrectomy, hypertension which resolved post nephrectomy, CKD III, BPH, who pre sented to the ED today complaining of feeling like he cannot take a deep breath. He states episodes like this started 3 years ago right before his nephrectomy and then would episodically happen since. The episodes of not being able to take a deep breath only happen with exertion, and even activities like climbing 1 flight of stairs or walking for 5 minutes on a treadmill can cause this sensation. It does not always go away with rest right away but the patient states that the rest does make it better. So does yawning. Today's episode happened after walking on a treadmill - the patient felt inability to take a deep breath after 5 minutes of walking. He rested and continued to push himself on the treadmill (walking) for the next hour, having to stop every 5 minutes for shortness of breath. With the feeling of inability to take a deep breath also comes the feeling of chest tightness and like things are just slowing down around me. He states it does not quite feel like he will faint. His , who has witnessed the patient during these episodes, states that he looks pale and that his face is drawn in, like he is about to faint. The patient also describes a sensation of fatigue and like he can't move every time he has a salty or a heavy meal. Per , he has a distorted face after he eats and gets agitated. The patient denies dizziness, headaches, visual changes other than burning in his eyes during these episodes, chest pain, palpitations, nausea, wheezing, cough, fever, weight gain or loss, leg swelling. He has been sleeping in a recliner ever since his nephrectomy 3 years ago. He does not think that laying flat makes him more short of breath. He does endorse waking up short of breath/gasping for air after eating heavy meals. He drinks 3 L of water per day. He is normally active and rides a bicycle - he was doing 45 mile rides this summer. He and his think that he has had a marked decline/deconditioning since this summer. He denies childhood history of asthma. He denies GERD, poor appetite or early satiety. He states that these episodes are not cause by anxiety but, rather, cause him anxiety. Exercise EKG stress tests in 2017 and 2018 were negative. Review of Systems Narrative: 12 systems reviewed. Pertinent positives and negatives are as per HPI. Additionally, the patient endorses frequent nocturnal urination and having to push on his bladder to help urinating. [facility] Medical History (Updated 04/22/19 @ 00:36 by Verenice Sears MD) Atopic dermatitis BPH associated with nocturia (Acute) CKD (chronic kidney disease) stage 3, GFR 30-59 ml/min (Acute) Colon polyps (Acute ~04/02/18) benign Diarrhea (Acute) per dr gates on 03/01/18 but also occassional constipation - elimination diet had no effect, stool studies negative (note that the sample for Cdiff was rejected) Elevated TSH (Acute) HTN (hypertension) resolved post nephrectomy Pulmonary nodules (Inactive 09/27/16) 08/[address] -- needs f/u chest CT Renal cell carcinoma of left kidney (Inactive 07/13/16) [place] [facility] [place] History (Updated 04/22/19 @ 00:23 by Verenice Sears MD) Radical Nephrectomy (05/27/16) [place], [place] [facility] [place] ~04[place]02/18) x2 Family History Mother , CVA at age 78. Personal history of malignant neoplasm Colon CA dx'ed early 70s Stroke Colon cancer Father , Melanoma at age 52. Melanoma Sister Essential hypertension Breast cancer Social History (Updated 03/12/18 @ 12:39 by DAISY Ca) Smoking/Tobacco Use Status: Never Alcohol Intake: former Drug use: Never Substance use type: does not use Adopted: No Household members: spouse and children What is your relationship status?: Panel score (0-1 are the most socially isolated patients): 1 Do you feel safe in your relationship?: Yes Meds Home Medications and Allergies Home Medications Medication Instructions Recorded Confirmed Type acetaminophen [Tylenol Extra 500 - 1,000 mg PO PRN PRN 04/22/19 04/22/19 History Strength] Allergies Allergy/AdvReac Type Severity Reaction Status Date / Time Iodinated Contrast Media AdvReac Severe Other (See Unverified 09/18/18 10:54 Comment) lisinopril AdvReac Severe COUGH & Verified 09/18/18 10:54 ?ANGIOEDEMA Exam Narrative Exam Narrative: General: Very pleasant, anxious appearing middle-aged male, A&Ox3, laying comfortably nearly flat in bed, no dyspnea/tachypnea noted, not in distress Neurological: A&OX3, no focal deficits Psychiatric: mildly anxious Skin: appears pale; no visible bruises/rashes HEENT: Atraumatic, normocephalic, EOMI, MMM, clear oropharynx, no submandibular or cervical lymphadenopathy, no goiter or JVD Cardiovascular: RRR, no m/r/g Lungs: CTAB with excellent B air entry; no difficulty completing sentences Gastrointestinal: abdomen soft, nontender, nondistended Genitourinary: deferred Extremities: no e/c/c BLE's, 2+ pedal pulses B Results Imaging Additional studies: CXR: Clear lungs. CT chest/abdomen/pelvis 04/03/19: 1. No change in appearance of the chest, abdomen and pelvis from 04/14/2018. 2. Status post left nephrectomy. EKG: HR 67, NSR, no acute ischemia Labs Result diagrams: 04/21/19 21:15 04/21/19 21:15 Labs: Laboratory Results - last 24 hr 04/21/19 04/21/19 04/21/19 21:15 21:15 21:15 WBC 6.86 RBC 4.40 L Hgb 13.4 L Hct 38.9 L MCV 88.4 MCH 30.5 MCHC 34.4 RDW 12.7 Plt Count 237 MPV 10.0 Immature Gran % 0.3 Neutrophils % 43.4 Lymphocytes % 36.7 Monocytes % 11.1 Eosinophils % 7.9 Basophils % 0.6 Absolute Neutrophils 2.98 Absolute Lymphocytes 2.52 Absolute Monocytes 0.76 H Absolute Eosinophils 0.54 Absolute Basophils 0.04 PT 10.4 INR 1.0 APTT 23.7 VBG pH VBG pCO2 VBG pO2 VBG HCO3 VBG Total CO2 VBG O2 Saturation VBG Base Excess Sodium 141 Potassium 4.3 Chloride 104 Carbon Dioxide 30.2 Anion Gap 6.8 BUN 26 H Creatinine 2.56 H Estimated GFR/1.73 m2 25.76 Glucose 85 Calcium 8.6 Total Bilirubin 0.5 AST 27 ALT 35 Alkaline Phosphatase 51 Troponin I < 0.05 NT-Pro-B Natriuret Pep 85 Total Protein 7.2 Albumin 3.4 TSH 15.29 H Free T4 0.79 04/21/19 21:15 WBC RBC Hgb Hct MCV MCH MCHC RDW Plt Count MPV Immature Gran % Neutrophils % Lymphocytes % Monocytes % Eosinophils % Basophils % Absolute Neutrophils Absolute Lymphocytes Absolute Monocytes Absolute Eosinophils Absolute Basophils PT INR APTT VBG pH 7.37 VBG pCO2 53 H VBG pO2 34 VBG HCO3 31 H VBG Total CO2 28 VBG O2 Saturation 64 L VBG Base Excess 5.4 H Sodium Potassium Chloride Carbon Dioxide Anion Gap BUN Creatinine Estimated GFR/1.73 m2 Glucose Calcium Total Bilirubin AST ALT Alkaline Phosphatase Troponin I NT-Pro-B Natriuret Pep Total Protein Albumin TSH Free T4 Last Vital Signs Temp 37 C 04/21/19 20:53 Pulse 69 04/21/19 20:53 Resp 16 04/21/19 20:53 BP 140/87 04/21/19 20:53 Pulse Ox 100 04/21/19 20:53
--- NOTE | 2019-04-22 00:43 | NUR.NOTE ---
Nursing Note: D-Dimer drawn and sent to lab.
[2019-04-22 01:01] LABS: Troponin I < 0.05 ng/Ml (<0.06)
[2019-04-22 01:21] LABS: D-Dimer 333 ng/mlFEU (<500)
[2019-04-22] MEDS: Normal Saline 500 ML IV (02:00)
[2019-04-22] MEDS: Normal Saline 1,000 ML 125 ML IV (04:05)
[2019-04-22] MEDS: Heparin 5,000 UNITS/ML VIAL 5000 UNITS SC ×2 (06:14→15:17)
[2019-04-22 07:23] LABS: Absolute Basophil Count 0.03 k/cumm (0.0-0.2); Absolute Eosinophil Count 0.54 k/cumm (0.0-0.7); Absolute Lymphocyte Count 2.12 k/cumm (1.2-3.4); Absolute Monocyte Count 0.53 k/cumm (0.11-0.7); Absolute Neutrophil Count 2.48 k/cumm (1.2-6.7); Basophils % 0.5; Eosinophils % 9.5; HCT 36.8 % (40.0-50.0); HGB 12.6 g/dL (13.5-17.5); Lymphocytes % 37.2; Mean Corp. HGB Concentration 34.2 g/dL (32.0-36.0); Mean Corpuscular Hemoglobin 30.4 pg (27.0-33.0); Mean Corpuscular Volume 88.7 fL (80-95); Mean Platelet Volume 10.1 fL (8.0-11.0); Monocytes % 9.3; Neutrophils % 43.5; Platelet Count 215 x1000/uL (130-400); RBC 4.15 m/cumm (4.50-6.00); RBC Distribution Width 12.8 % (11.8-14.1)
--- NOTE | 2019-04-22 07:30 | DI.US_ITS ---
APPROVED REPORT EXAM: Comprehensive 2D, Doppler, and color-flow Echocardiogram Patient Location: In-Patient Child Nutrition Director: Nupur Deluna RDCS (AE) Rhythm: NSR Indications: dyspnea on exertion Conclusion Left Ventricle : The left ventricle is normal size. Left ventricular systolic function is normal. Th ere is normal left ventricular wall thickness. There is normal LV segmental wall motion. The left ve ntricular diastolic function is normal. LVEF is estimated to be 55-60% Right Ventricle : The right ventricle is normal size. The right ventricular systolic function is norm al. Atria : The left atrium size is normal. The right atrium size is normal. Aortic Valve : Aortic valve leaflets are mildly thickened. Aortic valve is trileaflet. No aortic regu rgitation is present. There is no aortic valvular stenosis. Mitral Valve : Mitral valve leaflets are mildly thickened. Trace mitral regurgitation. No evidence of mitral valve stenosis. Tricuspid Valve : The tricuspid valve is normal in structure. Trace tricuspid regurgitation. Pulmonic Valve : Pulmonic valve is not well visualized. Great Vessels : The aortic root is normal in size. The IVC is dilated. The IVC collapses >50% with in spiration. Estimated RVSP is 25-33 mmHg. There is no prior echocardiogram available for comparison. Wall motion Left Ventricle The left ventricle is normal size. Left ventricular systolic function is normal. There is normal left ventricular wall thickness. There is normal LV segmental wall motion. The left ventricular diastolic function is normal. LVEF is estimated to be 55-60% Right Ventricle The right ventricle is normal size. The right ventricular systolic function is normal. Atria The left atrium size is normal. The right atrium size is normal. Aortic Valve Aortic valve leaflets are mildly thickened. Aortic valve is trileaflet. There is no aortic valvular s tenosis. No aortic regurgitation is present. Mitral Valve Mitral valve leaflets are mildly thickened. No evidence of mitral valve stenosis. Trace mitral regurg itation. Tricuspid Valve The tricuspid valve is normal in structure. Trace tricuspid regurgitation. Pulmonic Valve Pulmonic valve is not well visualized. Great Vessels The aortic root is normal in size. The IVC is dilated. The IVC collapses >50% with inspiration. Estim ated RVSP is 25-33 mmHg. Pericardium There is no pericardial effusion. 2D Dimensions IVSd 0.75 cm M: 0.6-1.2 LV EDV A2C 144.70 mL PWd 0.85 cm M: 0.6 - 1.2 LV EDV A4C 97.30 mL LVDd 4.90 cm M: 4.2 - 5.8 LA Volume Index A2C 28.04 mL/m2 LVDs 3.55 cm M: 2.5 - 4.0 LA Volume Index A4C 22.58 mL/m2 Aortic Root 2.95 cm M: 3.1 - 3.7 LA Volume Index Biplane 26.18 mL/m2 RVID Base (AP4) 3.33 cm (M/F) 2.5-4.1 LA Area A4C 16.11 cm2 RA Area A4C 12.34 cm2 LA Area A2C 18.68 cm2 LVOT 2.00 cm (M/F) 1.5-2.5 EF AP4 53.03 % LVEF (Teich) 53.06 % EF AP2 60.19 % LVEF (Orozco's) 59.54 % M: 52 - 72 EF BP 59.54 % LV Volume 96.16 mL M: 62 - 150 LV Volume Index 49.31 mL/m2 M: 34 - 74 FS 27.35 % LV Diastology E/A Ratio 1.0 MED E' 0.14 (>0.07 m/s) LV E/e MED 4.35 (<14) LAT E' 0.12 (>0.1 m/s) LV E/e LAT 5.15 (<14) Aortic Valve LVOT Area 3.28 cm2 LVOT Vmax 1.03 m/s LVOT Mean Shin. 0.70 m/s LVOT Peak Gr. 4.2 mmHg LVOT Mean Gr. 2.2 mmHg AoV Area/ BSA (Vmax) 1.28 cm2/m2 LVOT VTI 0.200 m AoV Vmax 1.34 (0.5-1.3 m/s) RAYNE Mean Shin. Index 1.20 cm2/m2 AoV Mean Shin. 0.97 m/s AoV Peak Grad 7.2 mmHg AoV Mean Grad 4.1 (<5 mmHg) AoV VTI 0.302 (0.18-0.25 m) AoV Area VTI 2.50 (2.5-4.5 cm2) AoV Area/ BSA (VTI) 1.18 cm/m2 Mitral Valve MV E Max Shin. 0.62 (0.4-1.3 m/s) MV A Velocity 0.60 (0.4-1.3 m/s) E/A Ratio 1.02 MV Decel. Time 243.55 (160-240 msec) MV PHT 70.64 msec MVA PHT 3.10 cm2 Pulmonary Valve RVOT Peak Gr. 1.24 mmHg RVOT Peak Shin. 0.56 m/s RVOT Mean Gr. 0.70 mmHg RVOT VTI 0.10 m Tricuspid Valve TR P. Velocity 2.51 m/s TV Regurg Vmax 2.51 m/s TR P. Gradient 25.15 mmHg
[2019-04-22 08:01] LABS: Anion Gap 6.1 mmol/L (3-11); BUN 25 mg/dL (7-18); CO2 28.9 mmol/L (21.0-32.0); CREATININE 1.78 mg/dL (0.70-1.30); Calcium 8.1 mg/dL (8.5-10.1); Calculated LDL 119 mg/dL; Chloride 106 mmol/L (98-107); Cholesterol 172 mg/dL (<200); Estimated GFR 39.18 (mL/min/1.73m2); Glucose 88 mg/dL (74-106); HDL Cholesterol 41 mg/dL (40-60); Magnesium 1.9 mg/dL (1.8-2.4); Potassium 4.2 mmol/L (3.5-5.1); Sodium 141 mmol/L (136-145); TSH 15.07 uIU/mL (0.36-3.74); Triglyceride 60 mg/dL (<150)
[2019-04-22 08:02] LABS: Troponin I < 0.05 ng/Ml (<0.06)
[2019-04-22 08:13] LABS: Creatine Kinase 116 U/L (39-308)
--- NOTE | 2019-04-22 09:40 | DI.NM_ITS ---
APPROVED REPORT Exam: Exercise Treadmill Patient Location: In-Patient Room/Bed: 217 Stress Nurse: Terra Andujar RN BMI: 21.10 Baseline Rhythm: Sinus Rhythm Indications: Patient reports for the past 3 months he suddenly has been experiencing SOB with exercis e, such as climbing stairs and after walking on treadmill for 5 minutes. This SOB may last for hours. He also states midsternal/substernal chest tightness may start 1 hour after exercise activity. Medical History Medical History: Left Renal Cell Cancer S/P Nephrectomy Cardiac Medications: None, Allergies: Lisinopril Cardiac Risk Factors: FHX of CAD Previous Cardiac Procedures: None Pretest Chest Pain Characteristics: Mild Chest midsternal/substernal Tightness Exercise History: Physically active Physical Disabilities: None Lung Sounds: Clear to auscultation Heart Sounds: Regular Stress Test Details Test: Exercise stress testing was performed using a Milton protocol. Nuclear Acquisition: Rest Tc-99m/Stress Tc-99m 1 day Rest Isotope: Tc-99m Sestamibi. Dose: 12.1 Date: 04/22/2019 Injection Time: 0900 Stress Isotope: Tc-99m Sestamibi. Dose: 37.6 Date: 04/22/2019 Injection Time: 1036 HR Max Heart Rate (APMHR): 160 bpm Resting HR Supine: 66 bpm Target HR (85% APMHR): 136 bpm Resting HR Standin bpm Max HR Achieved: 156 bpm % of APMHR: 97 HR response to stress: Normal HR response to stress BP Resting BP Supine: 120/84 mmHg Resting BP Standin/80 mmHg Max BP: 164/82 mmHg BP response to stress: Normal blood pressure response to stress. ECG Resting ECG: Sinus Rhythm ST Change: Normal Ectopy: Rare PAC's, Rare PVC's Stress ECG: Sinus Tachycardia ST Change: Normal Arrhythmia: None Recovery ECG: Sinus Rhythm Recovery ST Change: Normal Clinical Reason for Termination: Dyspnea, Exercise duration: 9 min55 sec Highest Stage Achieved: Stage 4: 4.2 mph at 16% grade. Exercise capacity: 11.68 METs Functional Capacity: Average Capacity Stress ECG Conclusion 1. Patient exercised for 9 minutes 55 seconds (11.6 METS) 2. The rate-pressure product was 25,000. 3. There was no evidence of ischemia on the ECG portion of this exam Protocol Used: Milton Protocol Stress Test Summary STAGE Time (mins) Speed (mph) Grade (%) HR BP SYMPTOMS METS Supine 66 120/84 Standing 67 122/80 1 3 1.7 10 91 144/80 4.6 2 6 2.5 12 108 152/78 7 3 9 3.4 14 135 164/82 10.2 4 12 4.2 16 12.9 5 15 5.0 18 17.2 1 min recovery 130 160/60 3 min recovery 87 142/78 6 min recovery 79 120/80 MPI Conclusion Ejection fraction with stress is 47%. There is no evidence of significant ischemia on the ECG portion of this exam. This represents a normal stress SPECT exam.
[2019-04-22] MEDS: Normal Saline Flush 10 ML SYR IVP ×2 (12:08→12:40)
[2019-04-22] MEDS: Aspirin 81 MG CHEW 324 MG CH (12:39)
[2019-04-22] MEDS: MORPHine 2 MG/ML SYR IVP (12:40)
[2019-04-22 13:15] LABS: Troponin I < 0.05 ng/Ml (<0.06)
--- NOTE | 2019-04-22 13:46 | W.NUTCONSULT ---
Date of service: 04/22/19 Time of Service: 13:47 Nutritional Consult ASSESSMENT: 58 year old male admitted with SOB, CKD and history of left renal carcinoma, s/p nephrectomy. Following Renal Diet per [employer] with adequate intake. BMI wnl. Met with Enrike who is followed by renal dietitian and very knowledgeable about optimal diet. Not at nutritional risk at this time. Time Spent in Nutritional Counseling and Treatment: 15 min spent face to face
--- NOTE | 2019-04-22 13:47 | W.PM.PROGNOT ---
Date of Service Date of service: 04/22/19 Time of Service: 13:47 Assessment and Plan Assessment and plan (1) Chest pain: Status: Acute Assessment and plan: recurrent episode after exercise stress testing. received asa and nitro with no improvement. EKG with twave inversion in v1-v2 when compared with previous EKG, serial troponins have been negative. will continue to follow. patient completed echocardiogram with showed no acute all motion abnormalities with LVEF 55-60% and no valvular disease. there is no effusion. stress was unremarkable, with no evidence of ischemia. discussed with Dr Bhakta. will discharge to home if next troponin remains negative. (2) Acute kidney injury superimposed on chronic kidney disease: Status: Acute Assessment and plan: in solitary kidney d/t left sided nephrectomy d/t renal cell cancer back at baseline. will avoid nephrotoxic drugs and monitor closely. (3) Elevated TSH: Status: Acute Assessment and plan: TSH 15 with normal free T4 at 0.79 (4) BPH associated with nocturia: Status: Acute Assessment and plan: voiding without difficulty (5) DVT prophylaxis: Status: Acute Assessment and plan: heparin in setting of CKD (6) Discharge planning issues: Status: Acute Assessment and plan: anticipate a discharge to home with no services once medically stable Subjective Subjective Interval history since last seen: patient experienced substernal chest pressure and sensation he can't a deep breath approx 45 minutes after nuclear stress testing. did not respond to nitroglycerin. received asa 324 mg chew and 3 nitro with no improvement in his symptoms. EKG shows t wave inversions in V1-V2 with no other acute st segment changes noted. he ultimately responded to morphine 2 mg IV push which did help improve his symptoms. his echocardiogram was unremarkable with no WMA and no valvular disease noted. his EF was 55-60%. he denies cough, nausea, diaphoresis or other symptoms. his pain does not radiate. he states this is the same pain he has been experiencing for over a month. Exam Const General: cooperative, healthy appearing, comfortable and no acute distress Nutritional Appearance: thin Orientation: alert, awake and oriented x3 HENMT Head: normal to inspection, normocephalic and atraumatic Mouth: oral mucosae normal Resp Effort & Inspection: normal respiratory effort and able to speak in complete sentences Auscultation: clear to auscultation bilaterally, diminished lung sounds bilaterally in the lower lung jordan and no wheezes Cardio Rate: regular rate Rhythm: regular rhythm Heart Sounds: S1 normal, S2 normal and no murmurs GI Inspection: normal to inspection Palpation: soft Auscultation: normal bowel sounds Skin General skin exam: no rashes or lesions noted Neuro General: alert, awake and oriented x3 Cranial Nerves: CN's II-XI intact bilaterally Cognition: normal cognition Speech: speech normal Motor: muscle tone normal throughout Extrem General: normal to inspection, full ROM and no pedal edema Psych Appearance: grossly normal Mental Status: mental status grossly normal Speech and Movement: speech and movement normal Mood: congruent mood Affect: normal affect Attitude: cooperative Thought Process: normal Thought Content: normal Insight: insight good Judgment: judgment good Objective Objective Clinical Data: Abnormal lab results 04/21/19 04/21/19 04/21/19 Range/Units 21:15 21:15 21:15 RBC 4.40 L (4.50-6.00) m/cumm Hgb 13.4 L (13.5-17.5) g/dL Hct 38.9 L (40.0-50.0) % Absolute Monocytes 0.76 H (0.11-0.7) k/cumm VBG pCO2 53 H (34-47) mm/Hg VBG HCO3 31 H (22-28) mmol/L VBG O2 Saturation 64 L (70-80) % VBG Base Excess 5.4 H (-3-3) mmol/L BUN 26 H (7-18) mg/dL Creatinine 2.56 H (0.70-1.30) mg/dL Calcium (8.5-10.1) mg/dL TSH 15.29 H (0.36-3.74) uIU/mL 04/22/19 04/22/19 Range/Units 06:25 06:25 RBC 4.15 L (4.50-6.00) m/cumm Hgb 12.6 L (13.5-17.5) g/dL Hct 36.8 L (40.0-50.0) % Absolute Monocytes (0.11-0.7) k/cumm VBG pCO2 (34-47) mm/Hg VBG HCO3 (22-28) mmol/L VBG O2 Saturation (70-80) % VBG Base Excess (-3-3) mmol/L BUN 25 H (7-18) mg/dL Creatinine 1.78 H D (0.70-1.30) mg/dL Calcium 8.1 L (8.5-10.1) mg/dL TSH 15.07 H (0.36-3.74) uIU/mL Vital Signs Temperature 36.6 C 04/22/19 13:00 Temperature Source Tympanic 04/22/19 13:00 Pulse 72 04/22/19 13:00 Pulse Rhythm Regular 04/22/19 07:30 Pulse 63 04/22/19 02:15 Respiratory Rate 18 04/22/19 13:00 Respiratory Effort Non-Labored 04/22/19 07:30 Respiratory Depth Normal 04/22/19 07:30 Respiratory Pattern Normal 04/22/19 07:30 Blood Pressure 121/71 04/22/19 13:00 Blood Pressure Mean 89 04/21/19 23:55 Pulse Oximetry 100 04/22/19 13:00 Oxygen Delivery Method Nasal Cannula 04/22/19 13:00 Oxygen Flow Rate 2 04/22/19 13:00 Pain Level 8 04/22/19 13:00 Comment 04/22/19 12:40 Intake & Output 04/21/19 04/22/19 04/22/19 23:59 11:59 23:59 Intake Total 500 / 650 150 / 650 Output Total 1150 / 1150 Balance -650 / -500 150 / -500 Weight 72.575 kg 71.6 kg Intake: IV 500 / 650 150 / 650 Output: Urine 1150 / 1150 Other: Urine Color Light Chantel Urine Appearance Clear Urine Odor Normal Comment Pt voided, rang thapa and immediately completed bladder scan with 0 ml x severat attempts. Pt reports no feelings of residual urine in bladder. Voiding Methods Toilet Laboratory Results WBC 5.70 k/cumm (4.4-10.8) 04/22/19 06:25 RBC 4.15 m/cumm (4.50-6.00) L 04/22/19 06:25 Hgb 12.6 g/dL (13.5-17.5) L 04/22/19 06:25 Hct 36.8 % (40.0-50.0) L 04/22/19 06:25 MCV 88.7 fL (80-95) 04/22/19 06:25 MCH 30.4 pg (27.0-33.0) 04/22/19 06:25 MCHC 34.2 g/dL (32.0-36.0) 04/22/19 06:25 RDW 12.8 % (11.8-14.1) 04/22/19 06:25 Plt Count 215 x1000/uL (130-400) 04/22/19 06:25 MPV 10.1 fL (8.0-11.0) 04/22/19 06:25 Immature Gran % 0.0 04/22/19 06:25 Neutrophils % 43.5 04/22/19 06:25 Lymphocytes % 37.2 04/22/19 06:25 Monocytes % 9.3 04/22/19 06:25 Eosinophils % 9.5 04/22/19 06:25 Basophils % 0.5 04/22/19 06:25 Absolute Neutrophils 2.48 k/cumm (1.2-6.7) 04/22/19 06:25 Absolute Lymphocytes 2.12 k/cumm (1.2-3.4) 04/22/19 06:25 Absolute Monocytes 0.53 k/cumm (0.11-0.7) 04/22/19 06:25 Absolute Eosinophils 0.54 k/cumm (0.0-0.7) 04/22/19 06:25 Absolute Basophils 0.03 k/cumm (0.0-0.2) 04/22/19 06:25 PT 10.4 sec (9.3-11.0) 04/21/19 21:15 INR 1.0 (0.9-1.1) 04/21/19 21:15 APTT 23.7 sec (21.0-31.4) 04/21/19 21:15 D-Dimer 333 ng/mlFEU (<500) 04/22/19 00:40 VBG pH 7.37 (7.32-7.43) 04/21/19 21:15 VBG pCO2 53 mm/Hg (34-47) H 04/21/19 21:15 VBG pO2 34 mm/Hg (28-44) 04/21/19 21:15 VBG HCO3 31 mmol/L (22-28) H 04/21/19 21:15 VBG Total CO2 28 mmol/L (22-29) 04/21/19 21:15 VBG O2 Saturation 64 % (70-80) L 04/21/19 21:15 VBG Base Excess 5.4 mmol/L (-3-3) H 04/21/19 21:15 Sodium 141 mmol/L (136-145) 04/22/19 06:25 Potassium 4.2 mmol/L (3.5-5.1) 04/22/19 06:25 Chloride 106 mmol/L (98-107) 04/22/19 06:25 Carbon Dioxide 28.9 mmol/L (21.0-32.0) 04/22/19 06:25 Anion Gap 6.1 mmol/L (3-11) 04/22/19 06:25 BUN 25 mg/dL (7-18) H 04/22/19 06:25 Creatinine 1.78 mg/dL (0.70-1.30) H D 04/22/19 06:25 Estimated GFR/1.73 m2 39.18 (mL/min/1.73m2) 04/22/19 06:25 Glucose 88 mg/dL (74-106) 04/22/19 06:25 Calcium 8.1 mg/dL (8.5-10.1) L 04/22/19 06:25 Magnesium 1.9 mg/dL (1.8-2.4) 04/22/19 06:25 Total Bilirubin 0.5 mg/dL (0.2-1.0) 04/21/19 21:15 AST 27 U/L (15-37) 04/21/19 21:15 ALT 35 U/L (16-63) 04/21/19 21:15 Alkaline Phosphatase 51 U/L (46-116) 04/21/19 21:15 Creatine Kinase 116 U/L (39-308) 04/22/19 06:25 Troponin I < 0.05 ng/Ml (<0.06) 04/22/19 12:50 NT-Pro-B Natriuret Pep 85 pg/mL (<300) 04/21/19 21:15 Total Protein 7.2 g/dL (6.4-8.2) 04/21/19 21:15 Albumin 3.4 g/dL (3.4-5.0) 04/21/19 21:15 Triglycerides 60 mg/dL (<150) 04/22/19 06:25 Total Cholesterol 172 mg/dL (<200) 04/22/19 06:25 LDL Cholesterol, Calc 119 mg/dL 04/22/19 06:25 HDL Cholesterol 41 mg/dL (40-60) 04/22/19 06:25 TSH 15.07 uIU/mL (0.36-3.74) H 04/22/19 06:25 Free T4 0.79 ng/dL (0.76-1.46) 04/21/19 21:15
--- NOTE | 2019-04-22 15:29 | PHARADMIT ---
Admission Pharmacy Clinical Review OLY, external dyspnea Code Status Full Code Current Weight 71.6 kg Renally Cleared and Narrow Therapeutic Index Meds Crcl ~44 mL/min current meds okay QTc Value / Action Taken QTc 409 BP Control, Fever BP 121/71 afebrile Electrolytes reviewed within normal limits DVT Prophylaxis heparin Opiate Usage / Scheduled Bowel Regimen Ordered no/prn Plt/SCr for Heparin / Enoxaparin plt 215 SCr 1.78 INR for Warfarin n/a H/H stable, WBC/Bands h/h 12.6/36.8 wbc 5.70 Antibiotic appropriateness none Cultures and Sensitivities none Surgical ABX d/c within 24 hr n/a DM control / Insulin Dosing BG 88 none Heart Failure (Check EF%) (VESTA's, B-Block, Diuretics) none IV to PO Switch n/a Home Meds Reviewed yes Home Meds Not Ordered ordered Comments ECHO and stress test today renal function improving; continue to monitor
--- NOTE | 2019-04-22 15:43 | CHAPLAIN ---
Enrike was in bed, his (?) was visiting with him when I stopped in. Enrike explained that he had a cancer diagnosis a while ago and he'd wanted to come to [facility], although he lives in [place], because he wanted Dr. Carrasco involved in his care. Enrike was pleasant and receptive to a conversation. I explained my role and offered support.
[2019-04-22 17:06] LABS: Troponin I < 0.05 ng/Ml (<0.06)
--- NOTE | 2019-04-22 17:11 | W.PM.DS.N ---
Date of service: 04/22/19 Time of Service: 17:11 DS: Diagnosis Discharge Diagnosis (1) Chest pain: Status: Acute (2) Acute kidney injury superimposed on chronic kidney disease: Status: Acute (3) Elevated TSH: Status: Acute (4) BPH associated with nocturia: Status: Acute (5) DVT prophylaxis: Status: Acute (6) Discharge planning issues: Status: Acute Discharge Plan Disposition Patient Disposition: HOME Condition: Good Discharge Details Chief Complaint: RespSymp Clinical Impression: Chest pain Reason For Visit: OLY, EXERTIONAL DYSPNEA Admit Date/Time: 04/21/19 22:41 Admit Provider: Verenice Sears Attending Provider: Verenice Sears Primary Care Provider: Paco Gates ED Provider: Joseph Jaffe Hospital Course Hospital Course: Mr Bowers is a 58 year old male with PMHx of L renal cell ca s/p nephrectomy, hypertension which resolved post nephrectomy, CKD III, BPH, who presented to the ED today complaining of feeling like he cannot take a deep breath. He states episodes like this started 3 years ago right before his nephrectomy and then would episodically happen since. The episodes of not being able to take a deep breath only happen with exertion, and even activities like climbing 1 flight of stairs or walking for 5 minutes on a treadmill can cause this sensation. It does not always go away with rest right away but the patient states that the rest does make it better. So does yawning. Today's episode happened after walking on a treadmill - the patient felt inability to take a deep breath after 5 minutes of walking. He rested and continued to push himself on the treadmill (walking) for the next hour, having to stop every 5 minutes for shortness of breath. With the feeling of inability to take a deep breath also comes the feeling of chest tightness and like things are just slowing down around me. He states it does not quite feel like he will faint. His , who has witnessed the patient during these episodes, states that he looks pale and that his face is drawn in, like he is about to faint. The patient also describes a sensation of fatigue and like he can't move every time he has a salty or a heavy meal. Per , he has a distorted face after he eats and gets agitated. The patient denies dizziness, headaches, visual changes other than burning in his eyes during these episodes, chest pain, palpitations, nausea, wheezing, cough, fever, weight gain or loss, leg swelling. He has been sleeping in a recliner ever since his nephrectomy 3 years ago. He does not think that laying flat makes him more short of breath. He does endorse waking up short of breath/gasping for air after eating heavy meals. He drinks 3 L of water per day. He is normally active and rides a bicycle - he was doing 45 mile rides this summer. He and his think that he has had a marked decline/deconditioning since this summer. He denies childhood history of asthma. He denies GERD, poor appetite or early satiety. He states that these episodes are not cause by anxiety but, rather, cause him anxiety. Exercise EKG stress tests in 2016 and 2017 were negative. He was admitted to med/surg and serial troponins remained negative. he underwent an Echo which was unremarkable and a nuclear stress test which showed no evidence of ischemia Stress ECG Conclusion 1. Patient exercised for 9 minutes 55 seconds (11.6 METS) 2. The rate-pressure product was 25,000. 3. There was no evidence of ischemia on the ECG portion of this exam after his stress test he reported substernal chest pressure consistent with symptoms he has been having over the past month. he did not respond to nitroglycerin. symptoms slightly improved with morphine. he also received a GI cocktail. case was discussed with Dr Bhakta who agrees with discharge to home to follow up outpatient for further testing per primary care provider. Home Meds and New Rx's Prescriptions: New aspirin 81 mg Tablet,Chewable 81 mg PO DAILY Qty: 30 RF: 0 Continued acetaminophen [Tylenol Extra Strength] 500 mg Tablet 500 - 1,000 mg PO PRN PRNRF: 0 Discharge Instructions Instructions: Dyspnea (GEN) Additional Instructions: you will need further outpatient evaluation through your pcp. return sooner for new or worsening symptoms. Stand Alone Forms: Nursing Discharge Form Referrals: Paco Gates MD [Primary Care Provider] - (one week) Activity:: Activity as Tolerated Equipment/Supplies:: No Equipment Needed Diet:: As Tolerated Discharge Orders Discharge Orders: Discharge Order (Routine); Ordered 04/22/19 Ordered By: Melissa Otero DS: Summary Status at Discharge Functional status at discharge: independent ambulation Overall status at discharge: patient is back to baseline Mental Status: mental status grossly normal Speech and Movement: speech and movement normal Mood: congruent mood Affect: normal affect Exam Psych Mental Status: mental status grossly normal Speech and Movement: speech and movement normal Mood: congruent mood Affect: normal affect DS: Data Vitals/I&O Vitals and I&O: Vital Signs Temperature 36.6 C 04/22/19 15:40 Temperature Source Tympanic 04/22/19 15:40 Pulse 71 04/22/19 15:48 Pulse Rhythm Regular 04/22/19 16:00 Pulse 63 04/22/19 02:15 Respiratory Rate 18 04/22/19 15:40 Respiratory Effort Non-Labored 04/22/19 16:00 Respiratory Depth Normal 04/22/19 16:00 Respiratory Pattern Normal 04/22/19 16:00 Blood Pressure 117/74 04/22/19 15:40 Blood Pressure Mean 89 04/21/19 23:55 Pulse Oximetry 99 04/22/19 15:40 Oxygen Delivery Method Room Air 04/22/19 15:40 Oxygen Flow Rate 0 04/22/19 15:40 Pain Level 0 04/22/19 15:40 Comment 04/22/19 12:40 Intake & Output 04/21/19 04/22/19 04/22/19 23:59 11:59 23:59 Intake Total 500 / 650 150 / 650 Output Total 1150 / 1400 250 / 1400 Balance -650 / -750 -100 / -750 Weight 72.575 kg 71.6 kg Intake: IV 500 / 650 150 / 650 Output: Urine 1150 / 1400 250 / 1400 Other: Urine Color Light Chantel Urine Appearance Clear Clear Urine Odor Normal Comment Pt voided, rang thapa and immediately completed bladder scan with 0 ml x severat attempts. Pt reports no feelings of residual urine in bladder. Voiding Methods Toilet Data Completed and Pending Labs on day of discharge: Labs from last 24 hours 04/22/19 04/22/19 04/22/19 16:08 12:50 12:00 WBC RBC Hgb Hct MCV MCH MCHC RDW Plt Count MPV Immature Gran % Neutrophils % Lymphocytes % Monocytes % Eosinophils % Basophils % Absolute Neutrophils Absolute Lymphocytes Absolute Monocytes Absolute Eosinophils Absolute Basophils PT INR APTT D-Dimer VBG pH VBG pCO2 VBG pO2 VBG HCO3 VBG Total CO2 VBG O2 Saturation VBG Base Excess Sodium Potassium Chloride Carbon Dioxide Anion Gap BUN Creatinine Estimated GFR/1.73 m2 Glucose Calcium Magnesium Total Bilirubin AST ALT Alkaline Phosphatase Creatine Kinase Troponin I < 0.05 < 0.05 Cancelled NT-Pro-B Natriuret Pep Total Protein Albumin Triglycerides Total Cholesterol LDL Cholesterol, Calc HDL Cholesterol TSH Free T4 04/22/19 04/22/19 04/22/19 06:25 06:25 00:40 WBC 5.70 RBC 4.15 L Hgb 12.6 L Hct 36.8 L MCV 88.7 MCH 30.4 MCHC 34.2 RDW 12.8 Plt Count 215 MPV 10.1 Immature Gran % 0.0 Neutrophils % 43.5 Lymphocytes % 37.2 Monocytes % 9.3 Eosinophils % 9.5 Basophils % 0.5 Absolute Neutrophils 2.48 Absolute Lymphocytes 2.12 Absolute Monocytes 0.53 Absolute Eosinophils 0.54 Absolute Basophils 0.03 PT INR APTT D-Dimer 333 VBG pH VBG pCO2 VBG pO2 VBG HCO3 VBG Total CO2 VBG O2 Saturation VBG Base Excess Sodium 141 Potassium 4.2 Chloride 106 Carbon Dioxide 28.9 Anion Gap 6.1 BUN 25 H Creatinine 1.78 H D Estimated GFR/1.73 m2 39.18 Glucose 88 Calcium 8.1 L Magnesium 1.9 Total Bilirubin AST ALT Alkaline Phosphatase Creatine Kinase 116 Troponin I < 0.05 NT-Pro-B Natriuret Pep Total Protein Albumin Triglycerides 60 Total Cholesterol 172 LDL Cholesterol, Calc 119 HDL Cholesterol 41 TSH 15.07 H Free T4 04/22/19 04/22/19 04/21/19 00:33 00:05 21:15 WBC RBC Hgb Hct MCV MCH MCHC RDW Plt Count MPV Immature Gran % Neutrophils % Lymphocytes % Monocytes % Eosinophils % Basophils % Absolute Neutrophils Absolute Lymphocytes Absolute Monocytes Absolute Eosinophils Absolute Basophils PT INR APTT D-Dimer VBG pH 7.37 VBG pCO2 53 H VBG pO2 34 VBG HCO3 31 H VBG Total CO2 28 VBG O2 Saturation 64 L VBG Base Excess 5.4 H Sodium Potassium Chloride Carbon Dioxide Anion Gap BUN Creatinine Estimated GFR/1.73 m2 Glucose Calcium Magnesium Total Bilirubin AST ALT Alkaline Phosphatase Creatine Kinase Troponin I Cancelled < 0.05 NT-Pro-B Natriuret Pep Total Protein Albumin Triglycerides Total Cholesterol LDL Cholesterol, Calc HDL Cholesterol TSH Free T4 04/21/19 04/21/19 04/21/19 21:15 21:15 21:15 WBC 6.86 RBC 4.40 L Hgb 13.4 L Hct 38.9 L MCV 88.4 MCH 30.5 MCHC 34.4 RDW 12.7 Plt Count 237 MPV 10.0 Immature Gran % 0.3 Neutrophils % 43.4 Lymphocytes % 36.7 Monocytes % 11.1 Eosinophils % 7.9 Basophils % 0.6 Absolute Neutrophils 2.98 Absolute Lymphocytes 2.52 Absolute Monocytes 0.76 H Absolute Eosinophils 0.54 Absolute Basophils 0.04 PT 10.4 INR 1.0 APTT 23.7 D-Dimer VBG pH VBG pCO2 VBG pO2 VBG HCO3 VBG Total CO2 VBG O2 Saturation VBG Base Excess Sodium 141 Potassium 4.3 Chloride 104 Carbon Dioxide 30.2 Anion Gap 6.8 BUN 26 H Creatinine 2.56 H Estimated GFR/1.73 m2 25.76 Glucose 85 Calcium 8.6 Magnesium Total Bilirubin 0.5 AST 27 ALT 35 Alkaline Phosphatase 51 Creatine Kinase Troponin I < 0.05 NT-Pro-B Natriuret Pep 85 Total Protein 7.2 Albumin 3.4 Triglycerides Total Cholesterol LDL Cholesterol, Calc HDL Cholesterol TSH 15.29 H Free T4 0.79 PFSH Medical History (Updated 04/22/19 @ 13:53 by Melissa Otero NP) Atopic dermatitis BPH associated with nocturia (Acute) CKD (chronic kidney disease) stage 3, GFR 30-59 ml/min (Acute) Colon polyps (Acute ~04/02/18) benign Diarrhea (Acute) per dr gates on 03/01/18 but also occassional constipation - elimination diet had no effect, stool studies negative (note that the sample for Cdiff was rejected) Elevated TSH (Acute) HTN (hypertension) resolved post nephrectomy Pulmonary nodules (Inactive 09/27/16) 08/[address] -- needs f/u chest CT Renal cell carcinoma of left kidney (Inactive 07/13/16) S/p nephrectomy [facility] [place] Surgical History (Updated 04/22/19 @ 00:23 by Verenice Sears MD) Radical Nephrectomy (05/27/16) L kidney, laparoscopic. [facility] [place] S/P colonoscopy (Inactive ~04/02/18) x2 Family History (Updated 04/22/19 @ 00:23 by Verenice Sears MD) Mother , CVA at age 78. Personal history of malignant neoplasm Colon CA dx'ed early 70s Stroke Colon cancer Father , Melanoma at age 52. Melanoma Sister Essential hypertension Breast cancer Social History (Updated 03/12/18 @ 12:39 by DAISY Ca) Smoking/Tobacco Use Status: Never Alcohol Intake: former Drug use: Never Substance use type: does not use Adopted: No Household members: spouse and children What is your relationship status?: Panel score (0-1 are the most socially isolated patients): 1 Do you feel safe in your relationship?: Yes
--- NOTE | 2019-04-22 19:24 | PDOC.CMIN ---
- If Service Date Differs Date of service: 04/22/19 Time of Service: 19:24 Care Management Initial Assess REASON FOR HOSPITALIZATION:: Breathing Difficulty PAST MEDICAL HISTORY/PAST SURGICAL HISTORY:: Medical History: Atopic dermatitis. BPH associated with nocturia (Acute). CKD (chronic kidney disease) stage 3, GFR 30-59 ml/min (Acute). Colon polyps (Acute ~04/02/18). benign. Diarrhea (Acute). per dr meehan on 03/01/18 but also occassional constipation - elimination diet had no effect, stool studies negative (note that the sample for Cdiff was rejected). Elevated TSH (Acute). HTN (hypertension). resolved post nephrectomy. Pulmonary nodules (Inactive 09/27/16). 08/[address] -- needs f/u chest CT. Renal cell carcinoma of left kidney (Inactive 07/13/16). S/p nephrectomy [facility] [place]. Surgical History : Radical Nephrectomy (05/27/16). L kidney, laparoscopic. [facility] [place]. S/P colonoscopy (Inactive ~04/02/18) PREVIOUS FUNCTIONAL STATUS/SOCIAL/FAMILY SUPPORTS:: Enrike lives with his Marii in [place], [place]. 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. Enrike is very active and independent at baseline. He hikes, runs, and participates in a wide variety of indoor and outdoor activities. Alycia have one son who is attending [employer] in [facility]. CURRENT FUNCTIONAL STATUS:: Enrike was sitting up in bed visiting with his when CM met with him. He was very pleasant and cooperatine and readily engaged in conversation. Enrike talked a bit about his recent symptoms and concerns that it may be cardiac in nature. He has become short of breath on his treadmill and also when climbing stairs per Enrike and Marii. ADVANCE DIRECTIVES:: Provided with 2 copies of the [place] forms at his request. Has patient been provided with information about the portal?: Yes Did the patient sign up for the portal?: No CODE STATUS:: Full Code INSURANCE COVERAGE / FINANCIAL ISSUES:: BC/BS CURRENT HOME/COMMUNITY SERVICES/EQUIPMENT:: none PRIMARY CARE PHYSICIAN:: Dr. Meehan is Enrike's PCP, however Dr. eMehan is retiring tomorrow and no other provider is taking over the practice. CM will coordinate obtaining a one time appointment with the T-doctor education reviewer day of admission. CM advised Enrike to contact Dr. Meehan's office tomorrow to try to obtain a copy of his office records which will facilitate joining a new practice. POTENTIAL DISCHARGE NEEDS:: new PCP PATIENT/FAMILY EDUCATION NEEDS:: Discharge plan, limitations, follow up plan, Ask Me Three. TRANSPORTATION:: via private vehicle with . PLAN:: Enrike will be discharged with no new services. He will follow up with Pulmonology and establish with a new PCP. A one time appointment will be scheduled with [facility]. He will transport home via private vehicle with .
--- NOTE | 2019-04-22 19:41 | CMDISCH_ITS ---
- If Service Date Differs Date of service: 04/22/19 Time of Service: 19:41 LACE Index Scoring Tool - Questions: Length of Stay (in days): 1 Acuity (Admit via E.D.?): Yes Comorbidities: Any Tumor, Liver or Renal Disease E.D. Visits: 2 - Answers: Total Score: 11 Risk of Readmission: High Risk Care Management Discharge Reason for Hospitalization: Breathing Difficulty Discharge Plan: Enrike will be discharged with no new services. He will follow up with Pulmonology and establish with a new PCP. A one time appointment will be scheduled with [facility]. He will transport home via private vehicle with . Patient/Family Education Needs: Discharge plan, limitations, follow up plan, Ask Me Three.
== END 2019-04-22 19:08 | disposition home or self-care (01) | DRG 313 ==
LOC: ER 23:03 → MS 04-22 02:30
PROVIDERS: Nurse Practitioner Acute Care; Admitting Provider Internal Medicine; Emergency Provider Student in an Organized Health Care Education/Training Program; PCP Physician Assistant Medical; Visit Provider Family Medicine
DX: R07.89 Other chest pain (principal); N17.9 Acute kidney failure, unspecified; N18.3 Chronic kidney disease, stage 3 (moderate); R79.89 Other specified abnormal findings of blood chemistry; N40.1 Benign prostatic hyperplasia with lower urinary tract symptoms; R35.1 Nocturia; Z90.5 Acquired absence of kidney
CPT/HCPCS: 36415; 78452; 80048; 80053; 80061; 82550; 82805; 93005; 99223; 99233; 99239; 99285; 71046; 83735; 83880; 84439; 84443; 84484; 85025; 85379; 85610; 85730; 93010; 93017; 93306; J1644; J2270

== ENCOUNTER 2019-05-06 22:27 | Outpatient (REF) | payer BC, SELFPAY ==
[2019-05-06 23:19] LABS: Anion Gap 7.9 mmol/L (3-11); BUN 29 mg/dL (7-18); CO2 30.1 mmol/L (21.0-32.0); CREATININE 1.82 mg/dL (0.70-1.30); Calcium 8.9 mg/dL (8.5-10.1); Chloride 103 mmol/L (98-107); Estimated GFR 38.19 (mL/min/1.73m2); Glucose 86 mg/dL (74-106); Potassium 4.5 mmol/L (3.5-5.1); Sodium 141 mmol/L (136-145); TSH (W/Ref FT4) 4.07 uIU/mL (0.36-3.74)
[2019-05-06 23:35] LABS: FREE T4 0.94 ng/dL (0.76-1.46)
[2019-05-07 17:08] LABS: T3, Total 117 ng/dL (97-169)
[2019-05-08 11:04] LABS: Thyroglobulin Antibody <15 U/mL (<=60); Thyroperoxidase Antibody 29 U/mL (<=60)
== END 2019-05-06 22:47 ==
LOC: NCHCN 22:27
PROVIDERS: PCP Physician Assistant Medical; Visit Provider Physician Assistant Medical
DX: R94.6 Abnormal results of thyroid function studies (principal); N18.3 Chronic kidney disease, stage 3 (moderate)
CPT/HCPCS: 80048; 86376; 84439; 84443; 84480

== ENCOUNTER 2019-07-08 13:34 | Outpatient (REF) | payer BC, SELFPAY ==
[2019-07-08 19:09] LABS: ALT 46 U/L (16-63); AST 31 U/L (15-37); Alkaline Phosphatase 55 U/L (46-116); Anion Gap 6.5 mmol/L (3-11); BUN 25 mg/dL (7-18); Bilirubin, Total 0.6 mg/dL (0.2-1.0); CO2 30.5 mmol/L (21.0-32.0); CREATININE 1.66 mg/dL (0.70-1.30); Calcium 8.9 mg/dL (8.5-10.1); Chloride 104 mmol/L (98-107); Estimated GFR 42.47 (mL/min/1.73m2); Glucose 87 mg/dL (74-106); Potassium 4.2 mmol/L (3.5-5.1); Sodium 141 mmol/L (136-145); TSH 4.17 uIU/mL (0.36-3.74); Total Protein 7.7 g/dL (6.4-8.2)
[2019-07-08 19:10] LABS: Abs Immature Grans 0.01 k/cumm (0.0-0.09); Absolute Basophil Count 0.03 k/cumm (0.0-0.2); Absolute Eosinophil Count 0.52 k/cumm (0.0-0.7); Absolute Lymphocyte Count 1.62 k/cumm (1.2-3.4); Absolute Monocyte Count 0.53 k/cumm (0.11-0.7); Absolute Neutrophil Count 3.66 k/cumm (1.2-6.7); Basophils % 0.5; Eosinophils % 8.2; HCT 41.7 % (40.0-50.0); HGB 14.2 g/dL (13.5-17.5); Immature Grans % 0.2 %; Lymphocytes % 25.4; Mean Corp. HGB Concentration 34.1 g/dL (32.0-36.0); Monocytes % 8.3; Neutrophils % 57.4; Platelet Count 240 x1000/uL (130-400); RBC 4.74 m/cumm (4.50-6.00); RBC Distribution Width 12.1 % (11.8-14.1); White Blood Cell Count 6.37 k/cumm (4.4-10.8)
== END 2019-07-08 13:54 ==
LOC: NCHCN 13:34
PROVIDERS: PCP Physician Assistant Medical; Visit Provider Physician Assistant Medical
DX: R94.6 Abnormal results of thyroid function studies (principal); R53.83 Other fatigue
CPT/HCPCS: 80053; 84443; 85025

== ENCOUNTER 2019-09-03 01:18 | Outpatient (CLI) | payer BC, SELFPAY ==
[2019-09-03 16:23] LABS: FREE T4 1.17 ng/dL (0.76-1.46); TSH 2.97 uIU/mL (0.36-3.74)
== END 2019-09-03 01:38 ==
PROVIDERS: PCP Physician Assistant Medical; Visit Provider Family Medicine
DX: R94.6 Abnormal results of thyroid function studies (principal)
CPT/HCPCS: 36415; 84439; 84443

== ENCOUNTER 2020-03-16 14:16 | Outpatient (REF) | payer BC, SELFPAY ==
[2020-03-20 01:10] LABS: Patient Race White; SARS-CoV-2 RNA Undetected (Undetected); SARS-CoV-2 Specimen Source Nasal
== END 2020-03-16 14:36 ==
LOC: NCHCN 14:16
PROVIDERS: PCP Physician Assistant Medical; Visit Provider Physician Assistant Medical
DX: Z11.59 Encounter for screening for other viral diseases (principal); Z00.00 Encounter for general adult medical examination without abnormal findings
CPT/HCPCS: U0003

== ENCOUNTER 2020-03-31 11:47 | Outpatient (REF) | payer BC, SELFPAY ==
[2020-03-31 19:17] LABS: Abs Immature Grans 0.01 10^3/uL (0.0-0.06); Absolute Basophil Count 0.05 10^3/uL (0.0-0.2); Absolute Eosinophil Count 0.38 10^3/uL (0.0-0.7); Absolute Lymphocyte Count 1.52 10^3/uL (1.2-3.4); Absolute Monocyte Count 0.45 10^3/uL (0.1-0.8); Basophils % 0.9; Eosinophils % 6.8; HCT 42.8 % (40.0-50.0); HGB 14.1 g/dL (13.5-17.5); Immature Grans % 0.2; Lymphocytes % 27.1; MCH 29.8 pg (27.0-33.0); MCHC 32.9 % (32.0-36.0); MCV 90.5 fL (80-95); MPV 11.8 fL (8.0-11.0); Nucleated RBC 0 %; Platelet Count 188 10^3/uL (130-400); RBC 4.73 10^6/uL (4.36-5.78); RDW 11.8 % (11.8-14.1); RDW-SD 39.2 fL; WBC 5.61 10^3/uL (4.4-10.8)
[2020-03-31 19:56] LABS: ALT 35 U/L (16-63); AST 26 U/L (15-37); Alkaline Phosphatase 55 U/L (46-116); Anion Gap 7.3 mmol/L (3-11); BUN 21 mg/dL (7-18); Bilirubin, Total 0.6 mg/dL (0.2-1.0); CO2 28.7 mmol/L (21.0-32.0); Calcium 8.9 mg/dL (8.5-10.1); Calculated LDL 121 mg/dL (<100); Chloride 101 mmol/L (98-107); Cholesterol 184 mg/dL (<200); Estimated GFR 41.18 (mL/min/1.73m2); Glucose 88 mg/dL (74-106); HDL Cholesterol 56 mg/dL (40-60); Potassium 4.9 mmol/L (3.5-5.1); Sodium 137 mmol/L (136-145); TSH 3.89 uIU/mL (0.36-3.74); Total Protein 7.7 g/dL (6.4-8.2); Triglyceride 38 mg/dL (<150)
== END 2020-03-31 12:07 ==
LOC: NCHCN 11:47
PROVIDERS: PCP Physician Assistant Medical; Visit Provider Physician Assistant Medical
DX: Z00.00 Encounter for general adult medical examination without abnormal findings (principal); R94.6 Abnormal results of thyroid function studies; Z90.5 Acquired absence of kidney
CPT/HCPCS: 80053; 80061; 84443; 85025

== ENCOUNTER 2020-04-03 01:34 | Outpatient (CLI) | payer BC, SELFPAY ==
--- NOTE | 2020-04-03 07:00 | DI.CT_ITS ---
EXAM: CT CHEST/ABD/PEL WO CLINICAL HISTORY: R/O METS,RENAL CELL CA, C64.9. TECHNIQUE: Imaging Protocol: Axial computed tomography images with coronal and sagittal reformatted images were created and reviewed CONTRAST MATERIAL: Intravenous: Noncontrast Oral: yes COMPARISON: CT CT CHEST/ABD/PEL WO from 04/03/2019 FINDINGS: CHEST: Thyroid: Normal Tracheobronchial tree: Patent where visualized. Mediastinum and Kinsey: No dominant adenopathy or fluid collection. Pulmonary parenchyma: No consolidation or dominant measurable mass. No emphysematous or fibrotic elizabeth nges. Pleura: No effusion or pneumothorax. Lymph nodes: Within normal limits. Aorta: Thoracic portion non-dilated. Heart: Normal size. Coronary artery calcifications, [id number]. Bones: No evidence of compression fracture, lytic or blastic lesions. Soft tissues: Mild bilateral gynecomastia. ABDOMEN: Liver: Normal density. No measurable mass. Gallbladder and biliary tract: No radiodense calculus or dilation. Pancreas: Normal density, no abnormal calcifications or inflammatory process. Spleen: Normal. Kidneys: Normal size, contour and axis. No radiodense stones or obstructive uropathy. No masses seen. Stable right renal cysts. Status post left nephrectomy. Adrenal glands: No masses seen. Aorta: Abdominal portion non-dilated. Lymph nodes: Within normal limits. PELVIS: Bladder: Symmetric distention, no gross wall thickening. Bowel: Evaluation of the bowel is somewhat limited due to lack of IV contrast and lack of intra-abdom inal fat. No obstruction or bowel wall thickening. There is a large amount of stool seen throughout t he colon. Peritoneal cavity: No ascites, collection or mesenteric inflammatory response. Bones: Mild degenerative changes. No lytic or blastic lesions. Reproductive organs: Within normal limits. IMPRESSION: Status post left nephrectomy. No evidence of metastatic disease. RADIATION DOSE DELIVERED: 983.02mGy.cm Total DLP DATA REPOSITORY: All CT scans at this facility are submitted to the National Radiology Data Registry (NRDR) Dose Index Registry (DIR) with the [employer] (ACR). RADIATION OPTIMIZATION: All CT scans at this facility use at least one of these dose optimization te chniques: automated exposure control; mA and/or kV adjustment per patient size (includes targeted exa ms where dose is matched to clinical indication); or iterative reconstruction.
[2020-04-03] MEDS: Breeza Beverage 473 ML BTL PO ×2 (09:16→09:17)
[2020-04-03] MEDS: Omnipaque 350 MG/ML 50 ML BTL IJ (09:18)
== END 2020-04-03 01:54 ==
PROVIDERS: PCP Physician Assistant Medical; Visit Provider Urology
DX: C64.2 Malignant neoplasm of left kidney, except renal pelvis (principal); Z90.5 Acquired absence of kidney
CPT/HCPCS: 71250; 74176; Q9967

== ENCOUNTER 2020-05-22 01:39 | Outpatient (CLI) | payer BC, SELFPAY ==
[2020-05-22 11:59] LABS: HCT 39.9 % (40.0-50.0); HGB 13.5 g/dL (13.5-17.5); MCHC 33.8 % (32.0-36.0); MCV 88.7 fL (80-95); MPV 10.8 fL (8.0-11.0); Platelet Count 203 10^3/uL (130-400); RDW 12.2 % (11.8-14.1); RDW-SD 40.3 fL; WBC 5.81 10^3/uL (4.4-10.8)
[2020-05-22 12:53] LABS: ALT 33 U/L (16-63); AST 23 U/L (15-37); Albumin 3.5 g/dL (3.4-5.0); Alkaline Phosphatase 58 U/L (46-116); Anion Gap 6.3 mmol/L (3-11); BUN 26 mg/dL (7-18); Bilirubin, Total 0.6 mg/dL (0.2-1.0); CO2 27.7 mmol/L (21.0-32.0); CREATININE 1.8 mg/dL (0.70-1.30); Calcium 8.4 mg/dL (8.5-10.1); Chloride 99 mmol/L (98-107); Estimated GFR 38.55 (mL/min/1.73m2); Glucose 101 mg/dL (74-106); Potassium 4.8 mmol/L (3.5-5.1); Sodium 133 mmol/L (136-145); Total Protein 7.2 g/dL (6.4-8.2)
[2020-05-22 22:16] LABS: PSA, Screening 0.7 ng/mL (0.0-4.5)
== END 2020-05-22 01:59 ==
PROVIDERS: PCP Physician Assistant Medical; Visit Provider Urology
DX: C64.2 Malignant neoplasm of left kidney, except renal pelvis (principal); Z12.5 Encounter for screening for malignant neoplasm of prostate
CPT/HCPCS: 36415; 80053; 84153; 85027

== ENCOUNTER 2020-09-28 04:43 | Outpatient (CLI) | payer BC, SELFPAY ==
[2020-09-28 11:16] LABS: HCT 40.3 % (40.0-50.0); HGB 13.9 g/dL (13.5-17.5); MCH 30.3 pg (27.0-33.0); MCHC 34.5 % (32.0-36.0); MPV 11.3 fL (8.0-11.0); Platelet Count 174 10^3/uL (130-400); RBC 4.58 10^6/uL (4.36-5.78); RDW 12.4 % (11.8-14.1); RDW-SD 40.2 fL; WBC 6.13 10^3/uL (4.4-10.8)
[2020-09-28 12:02] LABS: ALT 37 U/L (16-63); AST 30 U/L (15-37); Albumin 3.7 g/dL (3.4-5.0); Alkaline Phosphatase 68 U/L (46-116); Anion Gap 8.4 mmol/L (3-11); BUN 27 mg/dL (7-18); Bilirubin, Total 0.5 mg/dL (0.2-1.0); CO2 27.6 mmol/L (21.0-32.0); Calcium 8.7 mg/dL (8.5-10.1); Chloride 103 mmol/L (98-107); Estimated GFR 34.14 (mL/min/1.73m2); Glucose 88 mg/dL (74-106); Potassium 4.9 mmol/L (3.5-5.1); Sodium 139 mmol/L (136-145); Total Protein 7.4 g/dL (6.4-8.2)
[2020-09-28 12:08] LABS: TSH 2.26 uIU/mL (0.36-3.74)
== END 2020-09-28 04:44 | disposition home or self-care (01) ==
LOC: LBO 04:43
PROVIDERS: PCP Physician Assistant Medical; Visit Provider Urology
DX: E03.9 Hypothyroidism, unspecified (principal); N18.30 Chronic kidney disease, stage 3 unspecified; N28.89 Other specified disorders of kidney and ureter; N17.9 Acute kidney failure, unspecified
CPT/HCPCS: 36415; 80053; 85027; 84443

== ENCOUNTER 2021-01-13 14:27 | Outpatient (REF) | payer BC, SELFPAY ==
[2021-01-15 10:56] LABS: COVID-19 RT-PCR UVMMC Result Negative (Negative)
== END 2021-01-13 14:28 | disposition home or self-care (01) ==
LOC: NCHCN 14:27
PROVIDERS: PCP Physician Assistant Medical; Visit Provider Physician Assistant Medical
DX: Z20.822 Contact with and (suspected) exposure to COVID-19 (principal); B97.89 Other viral agents as the cause of diseases classified elsewhere
CPT/HCPCS: U0003

== ENCOUNTER 2021-06-08 02:25 | Outpatient (CLI) | payer BC, SELFPAY ==
[2021-06-08 10:07] LABS: HGB 14.1 g/dL (13.5-17.5); MCH 30.3 pg (27.0-33.0); MCHC 33.6 % (32.0-36.0); MCV 90.1 fL (80-95); MPV 10.3 fL (8.0-11.0); Platelet Count 213 10^3/uL (130-400); RBC 4.66 10^6/uL (4.36-5.78); RDW 12.5 % (11.8-14.1); WBC 6.55 10^3/uL (4.4-10.8)
[2021-06-08 11:21] LABS: ALT 33 U/L (16-63); AST 20 U/L (15-37); Albumin 3.7 g/dL (3.4-5.0); Alkaline Phosphatase 48 U/L (46-116); Anion Gap 4.7 mmol/L (3-11); BUN 22 mg/dL (7-18); Bilirubin, Total 0.5 mg/dL (0.2-1.0); CO2 30.3 mmol/L (21.0-32.0); CREATININE 1.4 mg/dL (0.70-1.30); Calcium 8.6 mg/dL (8.5-10.1); Chloride 103 mmol/L (98-107); Estimated GFR 51.35 (mL/min/1.73m2); Glucose 93 mg/dL (74-106); Sodium 138 mmol/L (136-145); Total Protein 7.1 g/dL (6.4-8.2)
== END 2021-06-08 02:26 | disposition home or self-care (01) ==
LOC: LBO 02:25
PROVIDERS: PCP Physician Assistant Medical; Visit Provider Urology
DX: C64.2 Malignant neoplasm of left kidney, except renal pelvis (principal)
CPT/HCPCS: 36415; 80053; 85027

== ENCOUNTER 2022-01-12 10:49 | Outpatient (REF) | payer BC, SELFPAY ==
[2022-01-12 15:45] LABS: Abs Immature Grans 0.01 10^3/uL (0.0-0.06); Absolute Basophil Count 0.06 10^3/uL (0.0-0.2); Absolute Eosinophil Count 0.24 10^3/uL (0.0-0.7); Absolute Lymphocyte Count 1.48 10^3/uL (1.2-3.4); Absolute Monocyte Count 0.49 10^3/uL (0.1-0.8); Absolute Neutrophil Count 3.74 10^3/uL (1.2-6.7); HCT 40.6 % (40.0-50.0); HGB 13.8 g/dL (13.5-17.5); Immature Grans % 0.2; Lymphocytes % 24.6; MCH 29.9 pg (27.0-33.0); MCV 88 fL (80-95); MPV 10.2 fL (8.0-11.0); Monocytes % 8.1; Neutrophils % 62.1; Platelet Count 227 10^3/uL (130-400); RBC 4.61 10^6/uL (4.36-5.78); RDW 12.2 % (11.8-14.1); RDW-SD 39.2 fL; WBC 6.02 10^3/uL (4.4-10.8)
[2022-01-12 16:06] LABS: ALT 29 U/L (16-63); AST 25 U/L (15-37); Albumin 3.7 g/dL (3.4-5.0); Alkaline Phosphatase 47 U/L (46-116); Anion Gap 8.6 mmol/L (3-11); BUN 34 mg/dL (7-18); Bilirubin, Total 0.5 mg/dL (0.2-1.0); CO2 27.4 mmol/L (21.0-32.0); CREATININE 1.7 mg/dL (0.70-1.30); Chloride 101 mmol/L (98-107); Estimated GFR 44.74 (mL/min/1.73m2); Glucose 92 mg/dL (74-106); Sodium 137 mmol/L (136-145); TSH (W/Ref FT4) 5.06 uIU/mL (0.36-3.74); Total Protein 7.9 g/dL (6.4-8.2)
[2022-01-12 16:43] LABS: FREE T4 1.04 ng/dL (0.76-1.46)
== END 2022-01-12 10:50 | disposition home or self-care (01) ==
LOC: NCHCN 10:49
PROVIDERS: PCP Physician Assistant Medical; Visit Provider Physician Assistant Medical
DX: E03.9 Hypothyroidism, unspecified (principal); N18.30 Chronic kidney disease, stage 3 unspecified
CPT/HCPCS: 80053; 84439; 84443; 85025

== ENCOUNTER → 2022-01-21 00:58 | Outpatient (CLI) | payer BC, SELFPAY ==
--- NOTE | 2022-01-21 | DI.CT_ITS ---
Exam(s) CT ABDOMEN PELVIS W EXAM: CT ABDOMEN PELVIS W CLINICAL HISTORY: CONSTIPATION, K59.00; RENAL CA, C64.9; H/O NEPHRECTOMY, Z90.5 TECHNIQUE: COMPARISON: CT CT CHEST/ABD/PEL WO from 04/03/2020 FINDINGS: CT examination of the abdomen and pelvis was performed with bolus infusion of 100 cc of Omnipaque 350 . Images obtained through the lung bases are unremarkable. The liver appears normal with no evidence of a focal mass. Spleen is unremarkable in appearance.. Gallbladder and bile ducts are unremarkable. Pancreas is unremarkable in appearance. Adrenals appear normal bilaterally. There is been a prior left nephrectomy for renal carcinoma. No evidence of recurrent disease in the left renal bed. Right kidney is unremarkable in appearance except for incidental cortical and parape lvic cysts. No nephrolithiasis or hydronephrosis. No ureteral abnormality. Urinary bladder is esse ntially empty.. There is no evidence of abdominal or pelvic adenopathy. Abdominal aorta is of normal diameter and no abnormality is seen involving major visceral branches.. Appendix is normal. No evidence diverticulitis or bowel obstruction. No significant abdominal wall hernia seen. Impression: Negative CT examination of the abdomen and pelvis post left nephrectomy.. RADIATION DOSE DELIVERED: 717.7mGy.cm Total DLP 717.7mGy.cm Total DLP !Error CTDIvol DATA REPOSITORY: All CT scans at this facility are submitted to the National Radiology Data Registry (NRDR) Dose Index Registry (DIR) with the [employer] (ACR). RADIATION OPTIMIZATION: All CT scans at this facility use at least one of these dose optimization te chniques: automated exposure control; mA and/or kV adjustment per patient size (includes targeted exa ms where dose is matched to clinical indication); or iterative reconstruction.
[2022-01-21] MEDS: Barium Sulfate 2% W/V-Berry Smoothie 450 ML BTL PO (14:20)
[2022-01-21] MEDS: Omnipaque 350 MG/ML 500 ML BTL-Imaging package IJ (14:24)
[2022-01-21] MEDS: Normal Saline Flush 10 ML SYR IVP (14:28)
== END ==
PROVIDERS: PCP Physician Assistant Medical; Visit Provider Physician Assistant Medical
DX: K59.00 Constipation, unspecified (principal); C64.9 Malignant neoplasm of unspecified kidney, except renal pelvis; Z90.5 Acquired absence of kidney
CPT/HCPCS: 74177

== ENCOUNTER 2022-02-11 13:36 | Outpatient (CLI) | payer BC, SELFPAY ==
--- NOTE | 2022-02-11 | DI.RAD_ITS ---
Exam(s) XR RIBS RT W PA LAT CHEST EXAM: XR RIBS RT W PA LAT CHEST CLINICAL HISTORY: RIGHT SIDED RIB PAIN--R07.81, COUGH (X3WKS)--R05.8 TECHNIQUE: 2D digital imaging was performed. COMPARISON: CR,XR XR CHEST 2V PA LATERAL from 04/21/2019 FINDINGS: RIBS 3 VIEWS-right There are no obvious acute rib fractures evident. No lytic rib lesions identified. CXR- 2 VIEWS: No lung contusion or pneumothorax. There is no pleural effusion evident. Heart size is normal and there is no significant mediastinal widening. IMPRESSION: 1. No rib fractures evident. Also no obvious rib lesions. 2. No ipsilateral lung nor pleural abnormality evident. No pneumothorax. DATA REPOSITORY: RADIATION DOSE DELIVERED:
== END 2022-02-11 13:56 ==
LOC: DI 13:36
PROVIDERS: PCP Physician Assistant Medical; Visit Provider Physician Assistant Medical
DX: R07.81 Pleurodynia (principal); R05.8 Other specified cough
CPT/HCPCS: 71046; 71100

== ENCOUNTER 2022-03-04 08:06 | Day surgery (SDC) | payer BC, SELFPAY ==
--- NOTE | 2022-03-04 06:36 | COLE_ITS ---
Date of service: 03/04/22 Time of Service: 10:06 Colonoscopy Report Date of procedure: 03/04/22 Pre-op diagnosis general: Colon cancer screening Post-op diagnosis procedure note: other (polyps) Procedure: Colonoscopy with polypectomy Surgeon: Ledy Johnson Anesthesia Type: General:No Airway Estimated blood loss (mL): 3 Pathology: other (cecal polyp, transverse polyps x2) Complications: None Disposition: same day Indications: The patient? is a pleasant? 61-year-old male who is here to discuss another screening colonoscopy. ? His last colonoscopy was in 2018 and he was noted to have a hyperplastic polyp.? He does have a family history of colon cancer in his mother who at age 68.? He denies any? melena, hematochezia or unintentional weight loss. ? He also has been experiencing some constipation.? The procedure and risks were discussed.? The prep was reviewed in detail.? Risks, benefits and complications have been reviewed. Complications include but are not limited to bleeding, pain, perforation, missed small lesion/polyp, sore throat, aspiration and adverse reaction to the medications. Questions were entertained and answered to their satisfaction and they wished to proceed. No guarantees were given or implied. Prep: Miralax/Dulcolax Procedure Start Time: 10:06 Procedure End Time: 10:35 Retraction Time: 13 minutes Findings: 3 small polyps Procedure Description: After informed consent was obtained the patient was taken to the procedure room and placed in a left decubitous position. Monitors were applied and a time out was done. The patients name, date of , procedure, allergies to medica tions and metal in their body was reviewed. The patient was then sedated. Once sedated and comfortable a rectal exam was done. External exam was normal. Internal exam revealed a normal sphincter tone and no palpable masses. The prostate felt enlarged but smooth. The scope was then introduced and retro-flexed. No internal hemorrhoids, polyps or masses were identified on retro-flexion. The scope was then advanced to the cecum without difficulty. The ileocecal vlave and appendiceal orifice were identified. The prep was adequate. The scope was then slowly retracted over 13 minutes back into the rectum. Polyps were removed with cold forceps in the cecum and transverse colon x2. There was no diverticulosis noted. The scope was removed and the patient was woken up and taken back to Same day surgery in stable condition. The patient tolerated the procedure well and there were no immediate complications.
--- NOTE | 2022-03-04 06:37 | W.PM.DSUDISC ---
Date of service: 03/04/22 Time of Service: 10:44 Discharge Plan Disposition Patient Disposition: HOME Condition: Good Discharge Details Reason For Visit: colonoscopy Attending Provider: Ledy Johnson Primary Care Provider: Arnol Bryant Home Meds and New Rx's Prescriptions: Continued tadalafil [Cialis] 5 mg tablet 5 mg PO DAILY Qty: 90 4RF polyethylene glycol 3350 [Miralax] 17 gram/dose powder 17 g PO DAILY levothyroxine 50 mcg capsule 50 mcg PO DAILY acetaminophen [Tylenol Extra Strength] 500 mg Tablet 500 - 1,000 mg PO PRN PRN Discontinued polyethylene glycol 3350 17 gram/dose powder 238 g PO ONCE Qty: 238 0RF Rx Instructions: take per colonoscopy instructions bisacodyl [Dulcolax (bisacodyl)] 5 mg tablet,delayed release (DR/EC) 5 mg PO ONCE Qty: 4 0RF Rx Instructions: take per colonoscopy instructions Discharge Instructions Additional Instructions: Findings: 3 small polyps Follow up: 5 years Please call if you develop: fevers >101.5 Nausea or Vomiting Abdominal pain that is not transient Rectal bleeding that is more then a tbsp A hard abdomen and inability to pass gas DAY SURGERY UNIT POST ENDOSCOPY INSTRUCTIONS Instructions for everyone who is given Anesthesia: For your safety, please do the following for the next 24 Hours: a. Do not drive or operate dangerous equipment b. Do not drink alcohol beverages or use any recreational drugs for the first 24 hours or while taking pain medications. The medications in your body may have a reaction that can be dangerous. c. Do not make any important decisions or sign any important papers 1. Generally there are no restrictions on your activity after a day or so has gone by, but you may feel a bit fatigued for a few days. 2. After you arrive home you may have a light meal and return to a normal diet as you can tolerate it without feeling sick to your stomach. 3. After surgery, you may feel pain or discomfort. This should be only transient, but if it persists please contact your doctor. 4. If there are any questions regarding the findings of your procedure, please feel free to contact your doctor. 6. If you are unable to contact your doctor with a problem, contact the hospital at [phone]. 7. Continue all your regular medications unless directed otherwise. I understand the above instructions and have no questions. Signature of Patient or Responsible Adult Escort Date/Time Name of Responsible Adult Escort Signature of Nurse Date/Time Activity:: Activity as Tolerated Diet:: As Tolerated Discharge Orders Discharge Orders: Discharge Order (Routine); Ordered 03/04/22 Ordered By: Ledy Johnson
[2022-03-04 08:15] VITALS: BP 125/84; PULSE 88; RESP 16; TEMP 36.7; O2SAT 100
[2022-03-04] MEDS: Lactated Ringers 1,000 ML 80 ML IV (09:16)
--- NOTE | 2022-03-04 09:40 | ANES.PREOP_ITS ---
General Info Date of Service Date Performed: 03/04/22 Height: 6 ft 1 in Weight: 71.6 kg Body Mass Index (BMI): 20.8 Surgical Procedure: Operation Date: 03/04/22 10:05 Proposed Procedure Side Surgeon p Colonoscopy Ledy Johnson MD Meds Allergies and Home Medications Allergies Allergy/AdvReac Type Severity Reaction Status Date / Time Iodinated Contrast Media AdvReac Severe Other (See Unverified 03/04/22 08:49 Comment) lisinopril AdvReac Severe COUGH & Verified 03/04/22 08:49 ?ANGIOEDEMA Home Medication Medication Instructions Recorded acetaminophen 500 mg tablet 500 - 1,000 mg PO PRN PRN 04/22/19 (Tylenol Extra Strength) tadalafil 5 mg tablet (Cialis) 5 mg PO DAILY urine flow #90 tabs 08/10/21 levothyroxine 50 mcg capsule 50 mcg PO DAILY 01/31/22 bisacodyl 5 mg tablet,delayed 5 mg PO ONCE colonscopy bowel prep 02/25/22 release (Dulcolax (bisacodyl)) #4 tabs polyethylene glycol 3350 17 238 g PO ONCE colonoscopy prep 02/25/22 gram/dose oral powder #238 grams polyethylene glycol 3350 17 17 g PO DAILY 02/25/22 gram/dose oral powder (Miralax) Current Visit Medications: Current Medications Generic Name Dose Route Start Last Admin Trade Name Freq PRN Reason Stop Dose Admin Hyoscyamine Sulfate 0.125 mg 03/04/22 06:37 Hyoscyamine 0.125 Mg Sl/Oral/Chew SL DIRECTED PRN Ringer's Solution 1,000 mls @ 80 mls/hr 03/04/22 06:00 03/04/22 09:16 IV 04/02/22 23:59 80 mls/hr INFUSION DENIZ Administration IV Miscellaneous Supplies 1 each 03/04/22 06:00 Iv Access IV 04/02/22 23:59 DIRECTED DENIZ Ondansetron HCl 4 mg 03/04/22 06:37 Ondansetron 4 Mg/2 Ml Vial IVP Q4H PRN PRN Nausea / Vomiting Sodium Chloride 0 ml 03/04/22 06:00 Normal Saline Flush 10 Ml Syr IV 04/02/22 23:59 PRN PRN Sodium Chloride 0 ml 03/04/22 06:00 Normal Saline 10 Ml Vial IJ 04/02/22 23:59 DIRECTED PRN Sterile Water 0 ml 03/04/22 06:00 Water,Injection,Sterile 10 Ml Vial IJ 04/02/22 23:59 DIRECTED PRN PFSH Active Problems Active Problems: Problem Status Onset Code Encounter for screening for malignant neoplasm of colon Z12.11 Hypothyroid E03.9 GERD (gastroesophageal reflux disease) K21.9 Constipation K59.00 Chest pain R07.9 Discharge planning issues Z02.9 DVT prophylaxis Z29.9 Acute kidney injury superimposed on chronic kidney disease N17.9, N18.9 Breathing difficulty R06.89 Elevated TSH R79.89 BPH associated with nocturia N40.1, R35.1 CKD (chronic kidney disease) stage 3, GFR 30-59 ml/min N18.3 Family history of colon cancer in mother Z80.0 Colon polyps ~04/02/18 K63.5 Left renal mass 05/06/16 N28.89 Unspecified essential hypertension 08/24/15 I10 Bilateral groin pain 08/09/16 R10.30 Atopic dermatitis, unspecified 08/24/15 L20.9 Diarrhea R19.7 Medical History Medical History Atopic dermatitis HTN (hypertension) resolved post nephrectomy Pulmonary nodules (09/27/16) 08/[address] -- needs f/u chest CT Renal cell carcinoma of left kidney (07/13/16) S/p nephrectomy [facility] [place] Medical History Comments:: 1 kidney, nephrectomy d/t CA 2016 Surgical History Surgical History Radical Nephrectomy (05/27/16) L kidney, laparoscopic. [facility] [place] S/P colonoscopy (~04/02/18) x2 Tobacco Smoking/Tobacco Use Status: Never Alcohol Alcohol Intake: former Substance Use Substance use: Never Substance use type: does not use Vital Signs and Lab Results Vital Signs Most Recent Vital Signs in EMR: Most Recent Vital Signs Temp Pulse Resp BP Pulse Ox 36.7 C 88 16 125/84 100 03/04/22 08:15 03/04/22 08:15 03/04/22 08:15 03/04/22 08:15 03/04/22 08:15 Lab Results Blood Type / Crossmatch: No Data to Display Complete Blood Count: No Data to Display Complete Metabolic Panel: No Data to Display Liver Function Panel: No Data to Display Coagulation Panel: No Data to Display Cardiac Panel: No Data to Display Arterial Blood Gas: No Data to Display Venous Blood Gas: No Data to Display Pancreas Panel: No Data to Display Thyroid Panel: No Data to Display Infectious Disease: No Data to Display Blood Cultures: No Data to Display Toxicology Panel: No Data to Display Anesthesia Assessment and Plan Anesthesia History Personal History: No History of Anesthesia Complications Family History: No Family History of Anesthesia Complications Exercise Tolerance Exercise Tolerance: Metabolic Equivalents>4 Pertinent Negatives Pertinent Negatives: No Symptoms of GERD Cardiac & Pulmonary Exam Cardiac Exam: Normal S1/S2 Heart Sounds Pulmonary Exam: Clear Bilateral Breath Sounds Implantable Cardiac Device Does patient have a Pacemaker or an ICD?: No Airway Exam Known Difficult Airway: No Mallampati Class: 2 Mouth Opening: Normal (> 3cm) Thyromental Distance: Greater than 3 cm Neck Range of Motion: Full ROM Neck Circumference: Normal Teeth Condition: Normal Dentition ASA Classification ASA Score: ASA 2 Emergency Case?: No NPO Status NPO Status: NPO Clears >2 hours, Solids >8 hours Anesthesia Plan Resuscitation Status: Full Code Anesthesia Technique: General Anesthesia Airway Planned: Natural Airway Monitors Used: Standard Monitors
[2022-03-04 09:53] VITALS: BMI 20.8
--- NOTE | 2022-03-04 10:23 | BOWEL_PTH ---
PATIENT: Enrike Bowers LOC: [facility] U#:[id number] AGE/SX: 61/M ROOM: RE03/04/[address]: Ledy Johnson MD : 1960 BED: DIS: 03/04/2022 SPEC #: [id number] RECD: 03/04/22 12:53 STATUS: RAYMUNDO REQ #: [id number] DEMAR: 03/04/22 10:[address]: Ledy Johnson DEPT: Surgical Specimen RECD BY: Michaela Scherer ENTERED: 03/04/22 12:55 SP TYPE: Bowel OTHR DR: Arnol Bryant Tissues: 1 - BIOPSY BOWEL 2 - BIOPSY BOWEL Procedures: GROSS AND MICRO LEVEL 4 Comments: [id number]
[2022-03-04 10:45] VITALS: BP 107/84; PULSE 83; RESP 15; TEMP 36.2; O2SAT 98
--- NOTE | 2022-03-04 11:07 | W.ANESPOSTOP ---
Postoperative Evaluation Date, Time and Location Date Performed: 03/04/22 Time Performed: 10:50 Patient Location: Day Surgery Unit Vital Signs Most Recent Imported Vital Signs: Most Recent Vital Signs Temp Pulse Resp BP Pulse Ox 36.2 C L 83 15 107/84 98 03/04/22 10:45 03/04/22 10:45 03/04/22 10:45 03/04/22 10:45 03/04/22 10:45 Pain Score Most Recent Pain Score: Most Recent Pain Score Pain Level 0 03/04/22 10:45 Assessment Mental Status: Awake (Alert & Oriented to Patient Baseline) Airway and Respiratory Function: Patent airway with normal (patient baseline) respiratory exam Cardiovascular Function: Hemodynamically Stable Hydration Status: Adequately Hydrated Nausea & Vomiting: No Nausea or Vomiting Pain: Pt. Denies Any Pain Peripheral Nerve Block: Patient did not receive a nerve block
[2022-03-04 11:15] VITALS: BP 115/79; PULSE 65; RESP 18; TEMP 36.7; O2SAT 100
== END 2022-03-04 11:43 | disposition home or self-care (01) ==
PROVIDERS: PCP Physician Assistant Medical; Visit Provider Surgery
PROC: 0DJD8ZZ Inspection of Lower Intestinal Tract, Via Natural or Artificial Opening Endoscopic (ICD-10-PCS; CPT 45378; principal; 2022-03-04 10:00)
DX: Z12.11 Encounter for screening for malignant neoplasm of colon (principal); K63.5 Polyp of colon; K63.89 Other specified diseases of intestine
CPT/HCPCS: 45380; 88305

== ENCOUNTER 2022-04-27 16:34 | Outpatient (REF) | payer BC, SELFPAY ==
[2022-04-27 16:12] LABS: Anion Gap 8.2 mmol/L (3-11); BUN 27 mg/dL (7-18); CO2 26.8 mmol/L (21.0-32.0); CREATININE 1.8 mg/dL (0.70-1.30); Calcium 8.6 mg/dL (8.5-10.1); Chloride 101 mmol/L (98-107); Estimated GFR 41.77 (mL/min/1.73m2); Glucose 98 mg/dL (74-106); Sodium 136 mmol/L (136-145)
[2022-04-27 16:19] LABS: Calculated LDL 116 mg/dL (<100); Cholesterol 181 mg/dL (<200); HDL Cholesterol 52 mg/dL (40-60); TSH 3.27 uIU/mL (0.36-3.74); Triglyceride 69 mg/dL (<150)
== END 2022-04-27 16:35 | disposition home or self-care (01) ==
LOC: NCHCN 16:34
PROVIDERS: Urology; PCP Physician Assistant Medical; Visit Provider Physician Assistant Medical
DX: Z00.00 Encounter for general adult medical examination without abnormal findings (principal); E03.9 Hypothyroidism, unspecified; N18.30 Chronic kidney disease, stage 3 unspecified
CPT/HCPCS: 80048; 80061; 84443

== ENCOUNTER 2022-08-12 15:13 | Outpatient (REF) | payer BC, SELFPAY ==
[2022-08-12 19:33] LABS: Hemoglobin A1C 5.5 % (<5.7)
[2022-08-12 19:44] LABS: Anion Gap 4.4 mmol/L (3-11); BUN 21 mg/dL (7-18); CO2 30.6 mmol/L (21.0-32.0); CREATININE 1.6 mg/dL (0.70-1.30); Calcium 9.1 mg/dL (8.5-10.1); Chloride 104 mmol/L (98-107); Estimated GFR 48.11 (mL/min/1.73m2); Glucose 89 mg/dL (74-106); Potassium 4.2 mmol/L (3.5-5.1); Sodium 139 mmol/L (136-145); TSH (W/Ref FT4) 3.19 uIU/mL (0.36-3.74); Vitamin B12 1463 pg/mL (193-986)
[2022-08-15 11:20] LABS: Lyme Ab w Rflx to Lyme Confirm Negative (Negative)
[2022-08-17 15:49] LABS: Anaplasma phagocytophilum Negative (Negative); B. miyamotoi PCR Negative (Negative); Babesia divergens/MO-1 Negative (Negative); Babesia duncani Negative (Negative); Babesia microti Negative (Negative); Ehrlichia chaffeensis Negative (Negative); Ehrlichia ewingii/canis Negative (Negative); Ehrlichia muris eauclairensis Negative (Negative)
== END 2022-08-12 15:14 | disposition home or self-care (01) ==
LOC: NCHCN 15:13
PROVIDERS: PCP Physician Assistant Medical; Visit Provider Physician Assistant Medical
DX: G62.9 Polyneuropathy, unspecified (principal); R79.89 Other specified abnormal findings of blood chemistry; E03.9 Hypothyroidism, unspecified; N18.30 Chronic kidney disease, stage 3 unspecified; E53.8 Deficiency of other specified B group vitamins
CPT/HCPCS: 80048; 87798; 82607; 83036; 84443; 86618

== ENCOUNTER 2022-08-19 00:45 | Outpatient (CLI) | payer BC, SELFPAY ==
--- NOTE | 2022-08-19 | DI.RAD_ITS ---
Exam(s) XR LUMBAR SPINE COMPLETE EXAM: XR LUMBAR SPINE COMPLETE CLINICAL HISTORY: NEUROPATHY,B62.9. TECHNIQUE: 2D digital imaging was performed. Five views. COMPARISON: No exams were available for comparison FINDINGS: BONES: No fracture or destructive lesion. Vertebral body heights are maintained. Mild facet hypertro phy identified at L4-5 and L5-S1.. Small endplate osteophytes. DISKS: Intervertebral disc spaces are maintained. ALIGNMENT: Lumbar spinal alignment is within normal limits. SOFT TISSUE: Upper quadrant surgical clips. IMPRESSION: Mild degenerative changes. DATA REPOSITORY: RADIATION DOSE DELIVERED:
== END 2022-08-19 01:05 ==
LOC: DI 00:45
PROVIDERS: PCP Physician Assistant Medical; Visit Provider Physician Assistant Medical
DX: G62.9 Polyneuropathy, unspecified (principal)
CPT/HCPCS: 72110

== ENCOUNTER 2023-09-25 04:40 | Outpatient (CLI) | payer MEDICARE, OTHER, SELFPAY ==
[2023-09-25 09:10] LABS: Abs Immature Grans 0.01 10^3/uL (0.0-0.06); Absolute Basophil Count 0.05 10^3/uL (0.0-0.2); Absolute Eosinophil Count 0.52 10^3/uL (0.0-0.7); Absolute Lymphocyte Count 1.54 10^3/uL (1.2-3.4); Absolute Monocyte Count 0.47 10^3/uL (0.1-0.8); Absolute Neutrophil Count 2.85 10^3/uL (1.2-6.7); Basophils % 0.9 %; Eosinophils % 9.6 %; HCT 38.4 % (40.0-50.0); HGB 13.4 g/dL (13.5-17.5); Immature Grans % 0.2 %; Lymphocytes % 28.3 %; MCH 30.2 pg (27.0-33.0); MCHC 34.9 % (32.0-36.0); MCV 87 fL (80-95); MPV 10.4 fL (8.0-11.0); Monocytes % 8.6 %; Neutrophils % 52.4 %; Platelet Count 203 10^3/uL (130-400); RBC 4.44 10^6/uL (4.36-5.78); RDW 12.7 % (11.8-14.1); RDW-SD 40.5 fL; WBC 5.44 10^3/uL (4.4-10.8)
[2023-09-25 09:31] LABS: ALT 27 U/L (16-63); AST 21 U/L (15-37); Albumin 3.6 g/dL (3.4-5.0); Alkaline Phosphatase 49 U/L (46-116); BUN 27 mg/dL (7-18); Bilirubin, Total 0.6 mg/dL (0.2-1.0); CREATININE 1.8 mg/dL (0.70-1.30); Calcium 8.7 mg/dL (8.5-10.1); Chloride 104 mmol/L (98-107); Estimated GFR 41.51 (mL/min/1.73m2); Glucose 93 mg/dL (74-106); Potassium 4.1 mmol/L (3.5-5.1); Sodium 138 mmol/L (136-145); Total Protein 7.4 g/dL (6.4-8.2)
[2023-09-25 18:40] LABS: PSA, Diagnostic 0.7 ng/mL (<=4.5)
== END 2023-09-25 04:41 | disposition home or self-care (01) ==
PROVIDERS: PCP Physician Assistant Medical; Visit Provider Urology
DX: C64.2 Malignant neoplasm of left kidney, except renal pelvis (principal); N40.1 Benign prostatic hyperplasia with lower urinary tract symptoms; R35.1 Nocturia
CPT/HCPCS: 36415; 80053; 84153; 85025

== ENCOUNTER → 2023-10-03 08:25 | Outpatient (BNVA) | payer MEDICARE, OTHER, SELFPAY | PROVIDERS: PCP Physician Assistant Medical; Referring Provider Physician Assistant Medical; Visit Provider Urology | DX: C64.2 Malignant neoplasm of left kidney, except renal pelvis (principal); N40.1 Benign prostatic hyperplasia with lower urinary tract symptoms; N13.8 Other obstructive and reflux uropathy; N18.30 Chronic kidney disease, stage 3 unspecified | CPT/HCPCS: 99214 ==

== ENCOUNTER 2023-10-10 14:47 | Outpatient (REF) | payer MEDICARE, SELFPAY ==
[2023-10-10 20:11] LABS: Creatine Kinase 148 U/L (39-308); Magnesium 2.2 mg/dL (1.8-2.4); TSH (W/Ref FT4) 4.08 uIU/mL (0.36-3.74)
[2023-10-10 20:14] LABS: C-Reactive Protein < 0.50 mg/dL (<or=0.5)
[2023-10-10 20:20] LABS: ESR 16 mm/hr (0-20)
[2023-10-10 20:38] LABS: FREE T4 1.14 ng/dL (0.76-1.46)
[2023-10-12 14:51] LABS: ANA Interpretation Negative (Negative)
== END 2023-10-10 14:48 | disposition home or self-care (01) ==
LOC: NCHCN 14:47
PROVIDERS: PCP Physician Assistant Medical; Visit Provider Physician Assistant Medical
DX: E03.9 Hypothyroidism, unspecified (principal); L98.8 Other specified disorders of the skin and subcutaneous tissue; M79.604 Pain in right leg; M79.605 Pain in left leg; M79.18 Myalgia, other site
CPT/HCPCS: 82550; 85652; 83735; 84439; 84443; 86038; 86140

== ENCOUNTER 2023-12-12 01:54 | Outpatient (CLI) | payer MEDICARE, SELFPAY ==
[2023-12-12 10:37] LABS: FREE T4 1.33 ng/dL (0.76-1.46); TSH 3.59 uIU/Ml (0.36-3.74)
== END 2023-12-12 01:55 | disposition home or self-care (01) ==
PROVIDERS: PCP Physician Assistant Medical; Visit Provider Physician Assistant Medical
DX: E03.9 Hypothyroidism, unspecified (principal)
CPT/HCPCS: 36415; 84439; 84443

== ENCOUNTER 2024-03-27 20:04 | Outpatient (REF) | payer MEDICARE, SELFPAY ==
[2024-03-27 20:29] LABS: Abs Immature Grans 0.02 10^3/uL (0.0-0.06); Absolute Basophil Count 0.07 10^3/uL (0.0-0.2); Absolute Eosinophil Count 0.63 10^3/uL (0.0-0.7); Absolute Lymphocyte Count 1.84 10^3/uL (1.2-3.4); Absolute Monocyte Count 0.51 10^3/uL (0.1-0.8); Absolute Neutrophil Count 3.37 10^3/uL (1.2-6.7); Basophils % 1.1 %; Eosinophils % 9.8 %; HCT 40.8 % (40.0-50.0); HGB 13.9 g/dL (13.5-17.5); Immature Grans % 0.3 %; Lymphocytes % 28.6 %; MCH 29.8 pg (27.0-33.0); MCHC 34.1 % (32.0-36.0); MCV 87 fL (80-95); MPV 10.9 fL (8.0-11.0); Monocytes % 7.9 %; Neutrophils % 52.3 %; Platelet Count 228 10^3/uL (130-400); RBC 4.67 10^6/uL (4.36-5.78); RDW 12.3 % (11.8-14.1); RDW-SD 39.6 fL; WBC 6.44 10^3/uL (4.4-10.8)
[2024-03-27 20:46] LABS: ALT 29 U/L (16-63); AST 23 U/L (15-37); Albumin 3.9 g/dL (3.4-5.0); Alkaline Phosphatase 61 U/L (46-116); Anion Gap 10.1 mmol/L (3-11); BUN 24 mg/dL (7-18); Bilirubin, Total 0.31 mg/dL (0.2-1.0); CO2 24.9 mmol/L (21.0-32.0); CREATININE 1.7 mg/dL (0.70-1.30); Calcium 8.6 mg/dL (8.5-10.1); Chloride 104 mmol/L (98-107); Estimated GFR 44.18 (mL/min/1.73m2); FREE T4 1.17 ng/dL (0.76-1.46); Glucose 87 mg/dL (74-106); Potassium 4.2 mmol/L (3.5-5.1); Sodium 139 mmol/L (136-145); TSH 3.36 uIU/mL (0.36-3.74); Total Protein 7.6 g/dL (6.4-8.2)
[2024-03-27 21:33] LABS: Folate 15.5 ng/mL (8.6-20.0); Vitamin B12 843 pg/mL (193-986)
[2024-03-28 17:51] LABS: T3, Total 90 ng/dL (97-169)
== END 2024-03-27 20:05 | disposition home or self-care (01) ==
LOC: NCHCN 20:04
PROVIDERS: PCP Physician Assistant Medical; Visit Provider Family Medicine
DX: R41.3 Other amnesia (principal); C84.40 Peripheral T-cell lymphoma, not elsewhere classified, unspecified site
CPT/HCPCS: 80053; 82607; 82746; 84439; 84443; 84480; 85025

== ENCOUNTER → 2024-05-21 08:16 | Outpatient (BNVA) | payer MEDICARE, OTHER, SELFPAY | PROVIDERS: PCP Physician Assistant Medical; Referring Provider Physician Assistant Medical; Visit Provider Psychiatry & Neurology Neurology | DX: G62.9 Polyneuropathy, unspecified (principal) | CPT/HCPCS: 95908; 99215 ==

== ENCOUNTER 2024-07-22 10:41 | Observation (INO) | payer MEDICARE, OTHER, SELFPAY ==
[2024-07-22] VITALS (40 sets, daily range): BP systolic 122–188; BP diastolic 68–90; PULSE 46–93; RESP 10–21; TEMP 36.4–37.5; O2SAT 94–100; BMI 21.1
--- NOTE | 2024-07-22 11:15 | RT.EKG_ITS ---
APPROVED REPORT Exam: Resting ECG Reason for Exam: Preop Patient Location: E HR:54 bpm ECG Measurements Heart Rate 54 AXIS NJ 152 P 76 QRSd 155 QRS -33 QT 467 T 31 QTc 444 Conclusion Sinus bradycardia...rate< 60 Right bundle branch block...QRSd>120, terminal axis(90,270) No STEMI
--- NOTE | 2024-07-22 11:18 | W.ED.GENAD ---
Discharge Plan Disposition Patient Disposition: Admit to [facility] Discharge Details Clinical Impression: Ureterolithiasis, OLY (acute kidney injury) Admit Date/Time: 07/22/24 13:20 Admit Provider: Lucien Carrasco Attending Provider: Lucien Carrasco Primary Care Provider: Arnol Bryant ED Provider: Galileo Phillips [facility] General Date/Time Provider Initiated Documentation: 07/22/24 10:48. HPI Narrative: MDM This is an uncomfortable appearing afebrile and not tachycardic 63-year-old male with right sided obstructing UVJ stone for which patient will undergo assessment with urology. No pain out of proportion to suggest necrotizing soft tissue infection. No fevers to suggest sepsis I did not cover empirically with ceftriaxone. Patient did have a leukocytosis at [facility] where he was seen this morning. He had a lactate assessed which was normal. Will treat with 1 mg of IV fluids as he reportedly. His urinalysis from yesterday evening was nitrite negative not consistent with UTI. No rash to abdomen to suggest zoster. CT scan not consistent with appendicitis. Will touch base with Sally Carrasco. We will obtain preop EKG. will send urinalysis. Patient has been n.p.o. since 10 PM last night. 4:57 PM They charted patient care. Patient was accepted by Dr. Carrasco. HPI This is a 63-year-old male with remote left-sided nephrectomy now with right 4 mm UVJ stone with worsening pain OLY transferred ED to ED from [facility] in the setting of need for stents. I was in touch with Sally Rosario who is aware about the patient. He was seen yesterday in the ED at [facility] subsequently sent home and return in setting of worsening pain. No fevers. Patient had been nauseous and vomited twice overnight but has not been vomiting this morning. He has he denies routine tobacco, ethanol, and illicits. Had persistent right lower quadrant pain. Exam General: Uncomfortable-appearing in no acute distress speaking in complete sentences. Head: Normocephalic, atraumatic. Eye: Extraocular eye movements intact. No conjunctival injection. No scleral icterus. Ear, nose, mouth, throat: Dry mucous membranes. Normal voice, handling secretions normally. Neck: Trachea midline. Cardiovascular: Well-perfused distal extremities. No murmurs. Respiratory: Nonlabored respiration. Clear lungs. Gastrointestinal: Nondistended abdomen. Right lower quadrant tenderness. No rebound. No guarding. Musculoskeletal: No edema. Moving all 4 extremities spontaneously. Skin: Normal for age and race, grossly normal temperature and turgor. No acute rash. Neurologic: Alert and appropriate, no apparent acute deficits. Psychiatric: Mood and manner are appropriate. Grooming and personal hygiene are appropriate. Related Data Home Medications ?Medication ?Instructions ?Recorded ?Confirmed acetaminophen 500 mg tablet 500 - 1,000 mg PO PRN PRN 04/22/19 07/22/24 (Tylenol Extra Strength) levothyroxine 50 mcg capsule 75 mcg PO DAILY 01/31/22 07/22/24 famotidine 40 mg tablet See Rx Instructions .Route 03/04/22 07/22/24 .COMPLEX #90 tabs tadalafil 5 mg tablet See Rx Instructions .Route 10/03/23 07/22/24 .COMPLEX #90 tabs Previous Rx's ?Medication ?Instructions ?Recorded famotidine 40 mg tablet See Rx Instructions .Route 03/04/22 .COMPLEX #90 tabs tadalafil 5 mg tablet See Rx Instructions .Route 10/03/23 .COMPLEX #90 tabs Allergies Allergy/AdvReac Type Severity Reaction Status Date / Time Iodinated Contrast Media AdvReac Severe Other (See Unverified 07/22/24 11:01 Comment) lisinopril AdvReac Severe COUGH & Verified 07/22/24 11:01 ?ANGIOEDEMA NSAIDS (Non-Steroidal AdvReac RENAL Verified 07/22/24 11:01 Anti-Inflamma FAILURE General Stated Complaint: Urinary MIAH: 2 Course Vital Signs Vital signs: Vital Signs Temperature 36.9 C 07/22/24 10:57 Pulse 58 L 07/22/24 10:57 Respiratory Rate 10 L 07/22/24 10:57 Blood Pressure 176/83 H 07/22/24 10:57 Pulse Oximetry 96 07/22/24 10:57 Temperature 36.9 C 07/22/24 10:57 Temperature Source Oral 07/22/24 10:57 Pulse 58 L 07/22/24 10:57 Respiratory Rate 10 L 07/22/24 10:57 Blood Pressure 176/83 H 07/22/24 10:57 Blood Pressure Position Sitting 07/22/24 10:57 Pulse Oximetry 96 07/22/24 10:57 Oxygen Delivery Method Room Air 07/22/24 10:57 Oxygen Flow Rate 0 07/22/24 10:57 Pain Level 9 07/22/24 10:57 Medical Decision Making Quality:SDOH Health Related Social Needs: No Data to Display PFSH All Active Problems (Updated 07/22/24 @ 11:58 by Galileo Phillips MD) OLY (acute kidney injury) (Acute) Ureterolithiasis (Acute) Small fiber neuropathy (Acute) Encounter for screening for malignant neoplasm of colon (Acute) GERD (gastroesophageal reflux disease) (Chronic) Constipation (Acute) Chest pain (Acute) Acute kidney injury superimposed on chronic kidney disease (Acute) Breathing difficulty (Acute) BPH associated with nocturia (Acute) CKD (chronic kidney disease) stage 3, GFR 30-59 ml/min (Acute) Family history of colon cancer in mother (Acute) Colon polyps (Acute ~04/02/18) benign Left renal mass (Acute 05/06/16) RCC s/p nephrectomy [facility] Unspecified essential hypertension (Acute 08/24/15) 01/2016 labwork: 10-year ASCVD risk = ~7.9% LSMs controlled on/off need for medication Adverse effect lisinopril Bilateral groin pain (Acute 08/09/16) Atopic dermatitis, unspecified (Acute 08/24/15) Diarrhea (Acute) per dr gates on 03/01/18 but also occassional constipation - elimination diet had no effect, stool studies negative (note that the sample for Cdiff was rejected) Medical History Hypothyroid Scarring alopecia Corneal abrasion Malignant neoplasm of kidney Pleuritic pain Cough Hyperplastic colon polyp Tubular adenoma of colon Renal cell carcinoma of left kidney (07/13/16) S/p nephrectomy [facility] Pulmonary nodules (09/27/16) 08/[address] -- needs f/u chest CT HTN (hypertension) resolved post nephrectomy Atopic dermatitis Surgical History History of nephrectomy S/P colonoscopy (~04/02/18) x2 02/2022 Radical Nephrectomy (05/27/16) L kidney, laparoscopic. [facility] Family History Mother , CVA at age 78. Personal history of malignant neoplasm Colon CA dx'ed early 70s Stroke Colon cancer Father , Melanoma at age 52. Melanoma Hypertension Sister Essential hypertension Breast cancer Social History Smoking/Tobacco Use Status: Never Smoking risk assessment performed?: Yes Alcohol Intake: former Drug use: Never Substance use type: does not use Adopted: No Number of Children: 1 What is your relationship status?: Panel score (0-1 are the most socially isolated patients): 0 Do you feel safe at home: Yes Do you feel safe in your relationship?: Yes
--- NOTE | 2024-07-22 11:48 | W.ANESPRE ---
General Info Date of Service Date Performed: 07/22/24 Height: 6 ft 1 in Weight: 72.575 kg Body Mass Index (BMI): 21.1 Meds Allergies and Home Medications Allergies Allergy/AdvReac Type Severity Reaction Status Date / Time Iodinated Contrast Media AdvReac Severe Other (See Unverified 07/22/24 11:01 Comment) lisinopril AdvReac Severe COUGH & Verified 07/22/24 11:01 ?ANGIOEDEMA NSAIDS (Non-Steroidal AdvReac RENAL Verified 07/22/24 11:01 Anti-Inflamma FAILURE Home Medication ?Medication ?Instructions ?Recorded acetaminophen 500 mg tablet 500 - 1,000 mg PO PRN PRN 04/22/19 (Tylenol Extra Strength) levothyroxine 50 mcg capsule 75 mcg PO DAILY 01/31/22 famotidine 40 mg tablet See Rx Instructions .Route 03/04/22 .COMPLEX #90 tabs tadalafil 5 mg tablet See Rx Instructions .Route 10/03/23 .COMPLEX #90 tabs Current Visit Medications: Current Medications Generic Name Dose Route Start Last Admin Trade Name Freq PRN Reason Stop Dose Admin Sodium Chloride 1,000 mls @ 1,000 mls/hr 07/22/24 11:16 Saline 1000ml Bag IV 07/22/24 12:15 BOLUS ONE PFSH Active Problems Active Problems: Problem Status Onset Code Small fiber neuropathy Acute G62.9 Encounter for screening for malignant neoplasm of colon Acute Z12.11 GERD (gastroesophageal reflux disease) Chronic K21.9 Constipation Acute K59.00 Chest pain Acute R07.9 Acute kidney injury superimposed on chronic kidney disease Acute N17.9, N18.9 Breathing difficulty Acute R06.89 BPH associated with nocturia Acute N40.1, R35.1 CKD (chronic kidney disease) stage 3, GFR 30-59 ml/min Acute N18.3 Family history of colon cancer in mother Acute Z80.0 Colon polyps Acute ~04/02/18 K63.5 Left renal mass Acute 05/06/16 N28.89 Unspecified essential hypertension Acute 08/24/15 I10 Bilateral groin pain Acute 08/09/16 R10.30 Atopic dermatitis, unspecified Acute 08/24/15 L20.9 Diarrhea Acute R19.7 Medical History Medical History Hypothyroid Scarring alopecia Corneal abrasion Malignant neoplasm of kidney Pleuritic pain Cough Hyperplastic colon polyp Tubular adenoma of colon Renal cell carcinoma of left kidney (07/13/16) S/p nephrectomy [facility] [place] Pulmonary nodules (09/27/16) 08/[address] -- needs f/u chest CT HTN (hypertension) resolved post nephrectomy Atopic dermatitis Medical History Comments:: 1 kidney, nephrectomy d/t CA 2017 Surgical History Surgical History History of nephrectomy S/P colonoscopy (~04/02/18) x2 02/2022 Radical Nephrectomy (05/27/16) L kidney, laparoscopic. [facility] [place] Tobacco Smoking/Tobacco Use Status: Never Alcohol Alcohol Intake: former Substance Use Substance use: Never Substance use type: does not use Vital Signs and Lab Results Vital Signs Most Recent Vital Signs in EMR: Most Recent Vital Signs Temp Pulse Resp BP Pulse Ox 36.9 C 55 L 13 181/81 H 99 07/22/24 11:38 07/22/24 11:38 07/22/24 11:38 07/22/24 11:38 07/22/24 11:38 Lab Results 07/22/24 11:16 07/22/24 11:16 Blood Type / Crossmatch: No Data to Display Complete Blood Count: No Data to Display Complete Metabolic Panel: No Data to Display Liver Function Panel: No Data to Display Coagulation Panel: No Data to Display Cardiac Panel: No Data to Display Arterial Blood Gas: No Data to Display Venous Blood Gas: No Data to Display Pancreas Panel: No Data to Display Thyroid Panel: No Data to Display Infectious Disease: No Data to Display Blood Cultures: No Data to Display Toxicology Panel: No Data to Display Anesthesia Assessment and Plan Anesthesia History Personal History: No History of Anesthesia Complications Family History: No Family History of Anesthesia Complications Exercise Tolerance Exercise Tolerance: Metabolic Equivalents>4 Cardiac & Pulmonary Exam Cardiac Exam: Normal S1/S2 Heart Sounds Pulmonary Exam: Clear Bilateral Breath Sounds Implantable Cardiac Device Does patient have a Pacemaker or an ICD?: No Airway Exam Known Difficult Airway: No Mallampati Class: 2 Mouth Opening: Normal (> 3cm) Thyromental Distance: Greater than 3 cm Neck Range of Motion: Full ROM Neck Circumference: Normal Teeth Condition: Normal Dentition ASA Classification ASA Score: ASA 3 Emergency Case?: No NPO Status NPO Status: NPO Clears >2 hours, Solids >8 hours Anesthesia Plan Resuscitation Status: Full Code Anesthesia Technique: General Anesthesia Airway Planned: Endotracheal Tube Monitors Used: Standard Monitors Preoperative Comments:: 63 yo male for urgent cysto/stent due to stone. Sig PMHx: GERD, neuropathy, CKDIII, s/p nephrectomy d/t CA, hypothyroid. ECHO: LVEF 60%, trace MR/TR Stress: 11.6 METS, no ECG ischemia. EF 47%, no perfusion issues. Previous Anes: - [facility]/nephrectomy, mac 4, grade 1, no issues. - [facility] x 2, prop, no issues.
[2024-07-22 11:57] LABS: Abs Immature Grans 0.06 10^3/uL (0.0-0.06); Absolute Monocyte Count 0.85 10^3/uL (0.1-0.8); Basophils % 0.3 %; HCT 39.6 % (40.0-50.0); HGB 13.2 g/dL (13.5-17.5); Immature Grans % 0.4 %; Lymphocytes % 5.9 %; MCH 29.6 pg (27.0-33.0); MCHC 33.3 % (32.0-36.0); MCV 89 fL (80-95); MPV 10.3 fL (8.0-11.0); Monocytes % 5.6 %; Neutrophils % 87.8 %; Platelet Count 210 10^3/uL (130-400); RBC 4.46 10^6/uL (4.36-5.78); RDW 12.3 % (11.8-14.1); RDW-SD 40.5 fL; WBC 15.17 10^3/uL (4.4-10.8)
[2024-07-22 12:00] LABS: Absolute Basophil Count 0.05 10^3/uL (0.0-0.2); Absolute Neutrophil Count 13.32 10^3/uL (1.2-6.7)
--- NOTE | 2024-07-22 12:01 | HPE_ITS ---
Date of service: 07/22/24 Time of Service: 12:01 Assessment and Plan Assessment and plan (1) Ureterolithiasis: Status: Acute Assessment and plan: He has a solitary kidney, so any degree of obstruction to his right kidney will cause compromise to his renal function. Luckily, he has no signs or symptoms of sepsis. We will make arrangements to do a cystoscopy, right retrograde pyelogram and placed a ureteral stent. We may be able to remove the distal ureteral stone at this time, but he still needs stenting until the perinephric fluid has been reaccumulated and his renal function has stabilized. He does have additional stones up in the kidney. Currently, the stones are nonobstructing, but we may want to ultimately do flexible ureteroscopy and remove the stones so that we do not get into a similar situation in the future. We will plan on keeping this gentleman hospitalized overnight so that we can monitor his renal function. History of Present Illness History of Present Illness Chief Complaint: Right ureteral stone Narrative: This is a 63-year-old gentleman who is well-known to me from his previous diagnosis and treatment of left sided renal cell carcinoma. At the time of his renal cell carcinoma diagnosis, his left renal mass was quite large and was not amenable to partial nephrectomy. He underwent a left radical nephrectomy. He had no evidence of metastatic or locally recurrent disease on follow-up. He presented to an [facility] emergency department yesterday with right groin pain associated with nausea and vomiting. He was found to have a right distal ureteral stone. He was discharged from the emergency department, but returned later with recurrent pain. He had no fever or chills. His CT scan demonstrated right hydronephrosis and perinephric fluid consistent with a ruptured calyx. His serum creatinine increased compared to his baseline. There was no urology service at the [facility], so he was transferred here to our emergency department for placement of a ureteral stent. He has no prior history of kidney stones. He has no known metabolic abnormalities such as gout or hyperparathyroidism. Review of Systems Narrative: No fevers or chills No vision change or dysphasia No diabetes or thyroid dysfunction No shortness of breath, cough or hemoptysis No chest pain or palpitations GERD. No hepatitis, ulcers, jaundice No seizures, strokes or peripheral neuropathy No bleeding disorders or anemia No gout PFSH All Active Problems (Updated 07/22/24 @ 11:58 by Galileo Phillips MD) OLY (acute kidney injury) (Acute) Ureterolithiasis (Acute) Small fiber neuropathy (Acute) Encounter for screening for malignant neoplasm of colon (Acute) GERD (gastroesophageal reflux disease) (Chronic) Constipation (Acute) Chest pain (Acute) Acute kidney injury superimposed on chronic kidney disease (Acute) Breathing difficulty (Acute) BPH associated with nocturia (Acute) CKD (chronic kidney disease) stage 3, GFR 30-59 ml/min (Acute) Family history of colon cancer in mother (Acute) Colon polyps (Acute ~04/02/18) benign Left renal mass (Acute 05/06/16) RCC s/p nephrectomy [facility] [place] Unspecified essential hypertension (Acute 08/24/15) 01/2016 labwork: 10-year ASCVD risk = ~7.9% LSMs controlled on/off need for medication Adverse effect lisinopril Bilateral groin pain (Acute 08/09/16) Atopic dermatitis, unspecified (Acute 08/24/15) Diarrhea (Acute) per dr gates on 03/01/18 but also occassional constipation - elimination diet had no effect, stool studies negative (note that the sample for Cdiff was rejected) Medical History Hypothyroid Scarring alopecia Corneal abrasion Malignant neoplasm of kidney Pleuritic pain Cough Hyperplastic colon polyp Tubular adenoma of colon Renal cell carcinoma of left kidney (07/13/16) S/p nephrectomy [facility] [place] Pulmonary nodules (09/27/16) 08/[address] -- needs f/u chest CT HTN (hypertension) resolved post nephrectomy Atopic dermatitis Surgical History History of nephrectomy S/P colonoscopy (~04/02/18) x2 02/2022 Radical Nephrectomy (05/27/16) L kidney, laparoscopic. [facility] [place] Family History Mother , CVA at age 78. Personal history of malignant neoplasm Colon CA dx'ed early 70s Stroke Colon cancer Father , Melanoma at age 52. Melanoma Hypertension Sister Essential hypertension Breast cancer Social History Smoking/Tobacco Use Status: Never Smoking risk assessment performed?: Yes Alcohol Intake: former Drug use: Never Substance use type: does not use Adopted: No Number of Children: 1 What is your relationship status?: Panel score (0-1 are the most socially isolated patients): 0 Do you feel safe at home: Yes Do you feel safe in your relationship?: Yes Meds Allergies and Home Medications Allergies Allergy/AdvReac Type Severity Reaction Status Date / Time Iodinated Contrast Media AdvReac Severe Other (See Unverified 07/22/24 11:01 Comment) lisinopril AdvReac Severe COUGH & Verified 07/22/24 11:01 ?ANGIOEDEMA NSAIDS (Non-Steroidal AdvReac RENAL Verified 07/22/24 11:01 Anti-Inflamma FAILURE Home Medications ?Medication ?Instructions ?Recorded ?Confirmed ?Type acetaminophen 500 mg tablet 500 - 1,000 mg PO PRN PRN 04/22/19 07/22/24 History (Tylenol Extra Strength) levothyroxine 50 mcg capsule 75 mcg PO DAILY 01/31/22 07/22/24 History famotidine 40 mg tablet See Rx Instructions .Route 03/04/22 07/22/24 Rx .COMPLEX #90 tabs tadalafil 5 mg tablet See Rx Instructions .Route 10/03/23 07/22/24 Rx .COMPLEX #90 tabs Exam Narrative Exam Narrative: He appears uncomfortable His vital signs are documented elsewhere His chest wall motion is normal. He is not short of breath at rest. His lungs are clear. Cardiac exam shows a regular rate and rhythm His abdomen is soft with no peritoneal signs There is no edema in the lower extremities He is awake and alert I reviewed the CT films that were sent over from [facility]. There is right hydronephrosis, right retroperitoneal fluid and ascites. Results Labs 07/22/24 11:53 07/22/24 11:53 Labs: Laboratory Results - last 24 hr 07/22/24 11:53 WBC 15.17 H RBC 4.46 Hgb 13.2 L Hct 39.6 L MCV 89 MCH 29.6 MCHC 33.3 RDW 12.3 Plt Count 210 MPV 10.3 Immature Gran % 0.4 Neutrophils % 87.8 Lymphocytes % 5.9 Monocytes % 5.6 Eosinophils % 0.0 Basophils % 0.3 Nucleated RBC % 0.0 Absolute Neutrophils 13.32 H Absolute Lymphocytes 0.90 L Absolute Monocytes 0.85 H Absolute Eosinophils 0.00 Absolute Basophils 0.05 Last Vital Signs Temp 36.9 C 07/22/24 11:38 Pulse 55 L 07/22/24 11:38 Resp 13 07/22/24 11:38 BP 181/81 H 07/22/24 11:38 Pulse Ox 99 07/22/24 11:38 Time Spent Time spent with Patient: 40-54 minutes Time was spent: preparing to see the patient(eg.review tests), obtaining and/or reviewing separately otained hiistory, referring, communicating with other health personal care assistant, indepentently interpreting results and counseling the patient
[2024-07-22 12:12] LABS: ALT 26 U/L (16-63); AST 25 U/L (15-37); Albumin 3.5 g/dL (3.4-5.0); Alkaline Phosphatase 74 U/L (46-116); Anion Gap 9.3 mmol/L (3-11); BUN 43 mg/dL (7-18); Bilirubin, Total 0.5 mg/dL (0.2-1.0); CO2 23.7 mmol/L (21.0-32.0); CREATININE 3.5 mg/dL (0.70-1.30); Calcium 8.2 mg/dL (8.5-10.1); Chloride 100 mmol/L (98-107); Estimated GFR 18.58 (mL/min/1.73m2); Glucose 108 mg/dL (74-106); Potassium 4.9 mmol/L (3.5-5.1); Sodium 133 mmol/L (136-145); Total Protein 7.5 g/dL (6.4-8.2)
[2024-07-22] MEDS: Lactated Ringers 1,000 ML 30 ML IV (12:36)
[2024-07-22] MEDS: Lidocaine 2% Jelly 6 ML SYR (13:01)
[2024-07-22] MEDS: Omnipaque 300 MG/ML 50 ML BTL (13:15)
--- NOTE | 2024-07-22 13:25 | DI.RAD_ITS ---
Exam(s) XR RETROGRADE IN OR EXAM: XR RETROGRADE IN OR CLINICAL HISTORY: right kidney stone TECHNIQUE: 2D and realtime digital imaging was performed. CONTRAST MATERIAL: Refer to procedure report. COMPARISON: No exams were available for comparison FINDINGS: Fluoroscopy was provided for Dr. Carrasco during the performance of a retrograde evaluation of the bismark l collecting system. Please refer to the procedure report for complete details. Ka,r=5.27 mGy IMPRESSION: RADIATION DOSE DELIVERED: 0.0 0.0 0
--- NOTE | 2024-07-22 13:27 | W.PM.OP ---
Operative Note Operative Note PRE-OP DIAGNOSIS: Right ureteral stone POST-OP DIAGNOSIS: same Renal failure PROCEDURE: Cystoscopy, right retrograde pyelogram, right semirigid ureteroscopy with stone extraction, insert right ureteral stent SURGEON: Lucien Carrasco ANESTHESIA TYPE: Local By Surgeon and General LMA/ETT Refer to Anesthesia Record ESTIMATED BLOOD LOSS: 5 PATHOLOGY: other (Stone for chemical analysis) COMPLICATIONS: None Patient was transported to: PACU Patient's condition: stable Implants: 7 [place] by 22 to 30 cm right ureteral stent 16 [place] Rosenbaum catheter with 10 cc of sterile water in the balloon Indications: This is a 63-year-old gentleman who has a history of renal cell carcinoma of the left kidney. He had undergone a radical nephrectomy previously. [facility] with right groin pain yesterday. He was found to have a right distal ureteral stone. His symptoms progressed over 24 hours and his renal function worsened. He was then transferred to our facility for stent placement. Findings: Stone impacted at the right ureterovesical junction Procedure Description: The patient was seen in our emergency department and brought to the operating room on 07/22/2024. He was given a dose of preoperative IV antibiotics. After successful induction of general anesthesia he was placed in the dorsal lithotomy position. His genitalia was prepped with Betadine. The surgical site was draped. 2% Xylocaine jelly was instilled into the urethra. A 22 [place] rigid cystoscope was then passed through the urethra into the bladder. The urethra and bladder were inspected with the 30 degree lens. The pendulous, bulbar and membranous urethra's appeared normal with no strictures. The prostatic urethra showed some lateral lobe enlargement but no significant median lobe. The bladder neck was entered and the bladder mucosa was inspected. The left ureteral orifice appeared normal. The right orifice appeared edematous and erythematous with a stone visible at the ureteral orifice. I was unable to pass a basket proximal to the visible stone, so I passed a 6 [place] access catheter through the cystoscope and bumped the ureteral stone more proximally into the right ureter. I was then able to pass a guidewire through the lumen of the access catheter and the wire advanced up the remainder of the ureter. I removed the cystoscope and the access catheter. I then passed the semirigid ureteroscope through the urethra into the bladder. I was able to advance the ureteroscope through the ureteral orifice and visualize the ureteral stone in the distal ureter. The stone was then grasped and a [place] stone basket and removed in its entirety. The stone was sent to the lab for chemical analysis. I passed the ureteral access catheter back over the wire and advanced the catheter up to the proximal ureter. I injected additional Omnipaque through the access catheter in order to outline the renal pelvis. I passed the guidewire back through the lumen of the access catheter and removed the catheter. I then passed a 7 [place] variable length stent over the wire. The proximal end of the stent was curled in the renal pelvis and the distal end was curled within the bladder. The positioning of the stent was confirmed both fluoroscopically and cystoscopically. I then removed the cystoscope and passed a 16 [place] Rosenbaum catheter through the urethra into the bladder. The catheter balloon was inflated with 10 cc of sterile water. The catheter was hooked to gravity drainage. The patient tolerated the procedure well with no complications. He was taken to the recovery room in stable condition. Date of Procedure: 07/22/24
--- NOTE | 2024-07-22 13:49 | W.ANESPOSTOP ---
Postoperative Evaluation Date, Time and Location Date Performed: 07/22/24 Time Performed: 13:49 Patient Location: PACU Vital Signs Most Recent Imported Vital Signs: Most Recent Vital Signs Temp Pulse Resp BP Pulse Ox 36.6 C 70 17 141/73 H 98 07/22/24 13:43 07/22/24 13:41 07/22/24 13:41 07/22/24 13:40 07/22/24 13:41 Pain Score Most Recent Pain Score: Most Recent Pain Score Pain Level 0 07/22/24 13:43 Assessment Mental Status: Arousable with meaningful communication Airway and Respiratory Function: Patent airway with normal (patient baseline) respiratory exam Cardiovascular Function: Hemodynamically Stable Hydration Status: Adequately Hydrated Nausea & Vomiting: No Nausea or Vomiting Pain: Pain is tolerable per patient Peripheral Nerve Block: Patient did not receive a nerve block
--- NOTE | 2024-07-22 14:23 | W.PC.ACHO ---
Registration Status: Primary Language: Preferred Language: ED Information & Data Chief Complaint Urinary 07/22/24 11:22 Triage Note Patient began having severe 07/22/24 10:57 R lower flank yesterday accompanied by vomiting. Only has one kidney. Went to [facility] twice in the past 24 hours. Medicated with dilaudid, fentanyl, and oxycodone w/no relief. Unable to void (only dribbles). No fever or chills noted. Medical / Surgical History (Last Reviewed 05/21/24 @ 09:49 by Ofelia Trevizo MD) Hypothyroid Scarring alopecia Corneal abrasion Malignant neoplasm of kidney Pleuritic pain Cough Hyperplastic colon polyp Tubular adenoma of colon Renal cell carcinoma of left kidney (07/13/16) Pulmonary nodules (09/27/16) HTN (hypertension) Atopic dermatitis (Last Reviewed 05/21/24 @ 09:49 by Ofelia Trevizo MD) History of nephrectomy S/P colonoscopy (~04/02/18) Radical Nephrectomy (05/27/16) Most Recent Vital Signs Temperature 36.4 C L 07/22/24 13:58 Temperature Source Oral 07/22/24 11:38 Pulse 67 07/22/24 14:01 Pulse 66 07/22/24 14:01 Respiratory Rate 15 07/22/24 14:01 Blood Pressure 132/68 07/22/24 14:01 Blood Pressure Mean 90 07/22/24 14:01 Blood Pressure Position Sitting 07/22/24 10:57 Pulse Oximetry 96 07/22/24 14:01 Respiratory End-tidal CO2 36 07/22/24 14:01 Oxygen Delivery Method Room Air 07/22/24 13:58 Oxygen Flow Rate 0 07/22/24 10:57 Pain Level 0 07/22/24 13:58 Comment PT ARRIVED IN PACU. 07/22/24 13:31 Allergies Iodinated Contrast Media Adverse Reaction (Severe, Unverified 07/22/24 11:01) Other (See Comment) pt was told not to ever have contrast due to his history of renal ca lisinopril Adverse Reaction (Severe, Verified 07/22/24 11:01) COUGH & ?ANGIOEDEMA NSAIDS (Non-Steroidal Anti-Inflamma Adverse Reaction (Verified 07/22/24 11:01) RENAL FAILURE Hx Nephrectomy, 2018, with GFR 30-45. Healthy otherwise, but remains @ RISK. Rx 2 Paxlovid, 10/16/22, IK Precautions Isolation Standard precaution 07/22/24 11:00 Active Medications Generic Name Dose Route Start Last Admin Trade Name Rebecca PRN Reason Stop Dose Admin Ringer's Solution 1,000 mls @ 30 mls/hr 07/22/24 13:00 07/22/24 14:08 IV 30 mls/hr INFUSION DENIZ Infusion IV IV Catheter Type [Right Peripheral IV Forearm] IV Catheter Gauge [Right 18 Forearm] Diet Orders Category Date Time Status DIET [Regular/Normal] [DIET] Nutrition 07/22/24 Dinner Active Diagnostics 07/22/24 07/22/24 Range/Units 13:23 11:53 WBC 15.17 H (4.4-10.8) 10^3/uL RBC 4.46 (4.36-5.78) 10^6/uL Hgb 13.2 L (13.5-17.5) g/dL Hct 39.6 L (40.0-50.0) % MCV 89 (80-95) fL MCH 29.6 (27.0-33.0) pg MCHC 33.3 (32.0-36.0) % RDW 12.3 (11.8-14.1) % Plt Count 210 (130-400) 10^3/uL MPV 10.3 (8.0-11.0) fL Immature Gran % 0.4 % Neutrophils % 87.8 % Lymphocytes % 5.9 % Monocytes % 5.6 % Eosinophils % 0.0 % Basophils % 0.3 % Nucleated RBC % 0.0 (0.0-0.3) % Absolute Neutrophils 13.32 H (1.2-6.7) 10^3/uL Absolute Lymphocytes 0.90 L (1.2-3.4) 10^3/uL Absolute Monocytes 0.85 H (0.1-0.8) 10^3/uL Absolute Eosinophils 0.00 (0.0-0.7) 10^3/uL Absolute Basophils 0.05 (0.0-0.2) 10^3/uL Sodium Pending 133 L (136-145) mmol/L Potassium Pending 4.9 (3.5-5.1) mmol/L Chloride Pending 100 (98-107) mmol/L Carbon Dioxide Pending 23.7 (21.0-32.0) mmol/L Anion Gap Pending 9.3 (3-11) mmol/L BUN Pending 43 H (7-18) mg/dL Creatinine Pending 3.5 H (0.70-1.30) mg/dL Est GFR (CKD-EPI 2020) Pending 18.58 (mL/min/1.73m2) Glucose Pending 108 H (74-106) mg/dL Calcium Pending 8.2 L (8.5-10.1) mg/dL Total Bilirubin Pending 0.5 (0.2-1.0) mg/dL AST Pending 25 (15-37) U/L ALT Pending 26 (16-63) U/L Alkaline Phosphatase Pending 74 (46-116) U/L Total Protein Pending 7.5 (6.4-8.2) g/dL Albumin Pending 3.5 (3.4-5.0) g/dL Intake and Output - 24 Hour Total 07/22/24 10:41 thru 07/22/24 14:08 Intake Total 750 Output Total 650 Balance 100 Weight 72.575 kg Intake: IV 750 Output: Urine 650 Other: Urine Color [place] Urine Appearance Clear Comment PACU. Emesis Description None Urinary Catheter Urinary Catheter Date of 07/22/24 Insertion [Urethral (Rosenbaum)] Urinary Catheter Date of 07/22/24 Insertion [Urethral (Rosenbaum)] Time of insertion [Urethral ( 13:17 Rosenbaum)] Falls Risk Assessment History of Falls No History 07/22/24 12:45 Contributing Factors No Factors 07/22/24 12:45 Ambulatory Aids Independent 07/22/24 12:45 Tubes/Lines None 07/22/24 12:45 Gait Evaluation No gait disturbance 07/22/24 12:45 Cognition No cognitive impairment 07/22/24 12:45 Fall Total Score 0 07/22/24 12:45 Level of Risk Standard/Low Risk 07/22/24 12:45 Problems (Last Reviewed 05/21/24 @ 09:49 by Ofelia Trevizo MD) OLY (acute kidney injury) (Acute) Ureterolithiasis (Acute) v v v v v v v v v Sending and/or Receiving Nurses: Please use comment section below to note any information pertinent to the patient hand-off not included above. Information / Comments: 63 y/o male who underwent ureterolitiasis with stent placement for kidney stone blockage. Pt has a catheter in place to monitor urine output overnight. Currnetly draining pink clear urine which is to be expected after this type of surgery. Rosenbaum to be kept in place overnight. Pt has SCD's applied. LR bolus running by gravity. Pt is a standby assist with ambulation s/p surgical procedure. A/O x 4 when arriving to floor. Pt reports 2/10 pain and states he feels so much better. VS stable when arriving to floor. Reg diet ordered Report received from: Fani KINGSTON PACU
[2024-07-22] MEDS: Lactated Ringers 1,000 ML 80 ML IV (16:07)
[2024-07-22 16:56] LABS: ALT 25 U/L (16-63); AST 21 U/L (15-37); Albumin 3.1 g/dL (3.4-5.0); Alkaline Phosphatase 69 U/L (46-116); Anion Gap 9.7 mmol/L (3-11); BUN 41 mg/dL (7-18); Bilirubin, Total 0.4 mg/dL (0.2-1.0); CO2 25.3 mmol/L (21.0-32.0); CREATININE 3.3 mg/dL (0.70-1.30); Calcium 8.3 mg/dL (8.5-10.1); Chloride 99 mmol/L (98-107); Estimated GFR 19.93 (mL/min/1.73m2); Glucose 150 mg/dL (74-106); Potassium 4.7 mmol/L (3.5-5.1); Sodium 134 mmol/L (136-145); Total Protein 6.8 g/dL (6.4-8.2)
[2024-07-22] MEDS: Docusate Sodium 100 MG CAP PO (19:36)
[2024-07-23] MEDS: Lactated Ringers 1,000 ML 80 ML IV (04:16)
[2024-07-23 04:36] VITALS: BP 127/75; PULSE 76; RESP 16; TEMP 37.5; O2SAT 95
[2024-07-23 04:40] LABS: Bilirubin Negative (Negative); Blood Large (Negative); Clarity Cloudy (Clear); Glucose Negative (Negative); Ketones Negative (Negative); Leukocyte Esterase Trace (Negative); Nitrite Negative (Negative); Specific Gravity 1.015 (1.005-1.025); Urobilinogen 0.2 mg/dL (Up to 0.2)
[2024-07-23 04:48] LABS: C & S Indicated? No; RBC >50 HPF (0-2)
[2024-07-23] MEDS: Levothyroxine 75 MCG TAB PO (06:37)
[2024-07-23 06:45] LABS: Absolute Lymphocyte Count 1.69 10^3/uL (1.2-3.4); Basophils % 0.1 %; HCT 38.8 % (40.0-50.0); HGB 13.1 g/dL (13.5-17.5); Immature Grans % 0.5 %; Lymphocytes % 8.4 %; MCH 29.6 pg (27.0-33.0); MCHC 33.8 % (32.0-36.0); MCV 88 fL (80-95); MPV 11.1 fL (8.0-11.0); Monocytes % 7.1 %; Neutrophils % 83.9 %; Platelet Count 210 10^3/uL (130-400); RBC 4.42 10^6/uL (4.36-5.78); RDW 12.3 % (11.8-14.1); RDW-SD 39.8 fL; WBC 20.11 10^3/uL (4.4-10.8)
[2024-07-23 06:47] LABS: Absolute Basophil Count 0.02 10^3/uL (0.0-0.2); Absolute Monocyte Count 1.43 10^3/uL (0.1-0.8); Absolute Neutrophil Count 16.87 10^3/uL (1.2-6.7)
[2024-07-23 07:04] LABS: ALT 22 U/L (16-63); AST 19 U/L (15-37); Albumin 3.1 g/dL (3.4-5.0); Alkaline Phosphatase 65 U/L (46-116); Anion Gap 9.1 mmol/L (3-11); BUN 36 mg/dL (7-18); Bilirubin, Total 0.4 mg/dL (0.2-1.0); CO2 25.9 mmol/L (21.0-32.0); CREATININE 2.4 mg/dL (0.70-1.30); Chloride 107 mmol/L (98-107); Estimated GFR 29.21 (mL/min/1.73m2); Glucose 111 mg/dL (74-106); Potassium 4.6 mmol/L (3.5-5.1); Sodium 142 mmol/L (136-145); Total Protein 6.9 g/dL (6.4-8.2)
--- NOTE | 2024-07-23 07:18 | W.PM.DS.N ---
Date of service: 07/23/24 Time of Service: 07:18 DS: Diagnosis Discharge Diagnosis (1) Ureterolithiasis: Status: Acute Discharge Plan Disposition Patient Disposition: Home Condition: Stable Discharge Details Reason For Visit: right ureteral stone Admit Date/Time: 07/22/24 13:20 Admit Provider: Lucien Carrasco Attending Provider: Lucien Carrasco Primary Care Provider: Arnol Bryant Hospital Course Hospital Course: The patient was transferred from [facility] and was evaluated in the emergency department. He was having significant right flank pain and his serum creatinine had increased from a baseline of 1.7 mg/dL up to 3.5 mg/dL. He had a previous left nephrectomy and his imaging from [facility] was reviewed. He had perinephric and periureteral fluid consistent with a ruptured calyx on the right. He was taken to the operating room where he underwent cystoscopy. We found a stone just at the right ureteral orifice. I was able to remove the stone ureteroscopically and place a 7 [place] stent. As we expected postobstructive diuresis, I placed a Rosenbaum catheter to monitor his urine output. Immediately following the procedure, his pain improved. He produced over 5 L of urine in the first 24 hours and his serum creatinine came back down toward baseline. On the morning of postoperative day #1, his serum creatinine was down to 2.4 milligrams per deciliter. His Rosenbaum catheter is being removed and he is being discharged to home on postoperative day #1. Home Meds and New Rx's Prescriptions: No Action tadalafil 5 mg tablet See Rx Instructions .ROUTE .COMPLEX Qty: 90 4RF Dose Instruction: TAKE 1 TABLET BY MOUTH DAILY FOR URINE FLOW Rx Instructions: TAKE 1 TABLET BY MOUTH DAILY FOR URINE FLOW levothyroxine 50 mcg capsule 75 mcg PO DAILY famotidine 40 mg tablet See Rx Instructions .ROUTE .COMPLEX Qty: 90 0RF Dose Instruction: TAKE 1 TABLET BY MOUTH DAILY Rx Instructions: TAKE 1 TABLET BY MOUTH DAILY acetaminophen [Tylenol Extra Strength] 500 mg Tablet 500 - 1,000 mg PO PRN PRN Discharge Instructions Additional Instructions: You have a ureteral stent in place. While the stent is present, you may notice some blood in your urine. You may also noticed that you urinate more frequently and have some discomfort when you urinate. All of the symptoms will improve once the stent is removed. My office will contact you to make arrangements for a cystoscopy and stent removal. This procedure will be done in the operating room. We will likely recommend a repeat ureteroscopy and removal of your nonobstructing stones at the same procedure. Activity:: Activity as Tolerated Equipment/Supplies:: No Equipment Needed Diet:: As Tolerated Discharge Orders Discharge Orders: Discharge Order (Routine); Ordered 07/23/24 Ordered By: Lucien Carrasco DS: Summary Time Spent with Patient providing and/or coordinating discharge services: Less than 30 minutes Status at Discharge Functional status at discharge: independent ambulation Overall status at discharge: patient is back to baseline Mental Status: mental status grossly normal Speech and Movement: speech and movement normal Mood: congruent mood Affect: normal affect Quality:SDOH Health Related Social Needs: No Data to Display Exam Narrative Exam Narrative: On the morning of discharge, he looks well His vital signs are documented elsewhere in the chart His chest wall motion is normal. He is not short of breath at rest. His abdomen is soft with no guarding or rebound tenderness He is awake and alert Psych Mental Status: mental status grossly normal Speech and Movement: speech and movement normal Mood: congruent mood Affect: normal affect DS: Data Vitals/I&O Vitals and I&O: Vital Signs Temperature 37.5 C 07/23/24 04:36 Temperature Source Temporal Artery Scan 07/23/24 04:36 Pulse 76 07/23/24 04:36 Pulse Rhythm Regular 07/22/24 17:46 Pulse 66 07/22/24 14:01 Respiratory Rate 16 07/23/24 04:36 Respiratory Effort Normal 07/22/24 17:46 Respiratory Depth Normal 07/22/24 17:46 Blood Pressure 127/75 07/23/24 04:36 Blood Pressure Mean 90 07/22/24 14:01 Blood Pressure Position Sitting 07/22/24 10:57 Pulse Oximetry 95 07/23/24 04:36 Respiratory End-tidal CO2 36 07/22/24 14:01 Oxygen Delivery Method Room Air 07/23/24 04:36 Oxygen Flow Rate 0 07/23/24 04:36 Pain Level 0 07/23/24 04:36 Comment PT ARRIVED IN PACU. 07/22/24 13:31 Intake & Output 07/22/24 07/22/24 07/23/24 11:59 23:59 11:59 Intake Total 1050.5 / 1050.5 1322 / 1322 Output Total 4350 / 4350 1550 / 1550 Balance -3299.5 / -3299.5 -228 / -228 Weight 72.575 kg Intake: IV 810.5 / 810.5 972 / 972 Oral 240 / 240 350 / 350 Output: Urine 4350 / 4350 1550 / 1550 Other: Urine Color [place] Urine Appearance Clear Clear Comment PACU. Emesis Description None Data Completed and Pending Labs on day of discharge: Labs from last 24 hours 07/23/24 07/23/24 07/22/24 06:09 04:25 16:19 WBC 20.11 H RBC 4.42 Hgb 13.1 L Hct 38.8 L MCV 88 MCH 29.6 MCHC 33.8 RDW 12.3 Plt Count 210 MPV 11.1 H Immature Gran % 0.5 Neutrophils % 83.9 Lymphocytes % 8.4 Monocytes % 7.1 Eosinophils % 0.0 Basophils % 0.1 Nucleated RBC % 0.0 Absolute Neutrophils 16.87 H Absolute Lymphocytes 1.69 Absolute Monocytes 1.43 H Absolute Eosinophils 0.00 Absolute Basophils 0.02 Sodium 142 134 L Potassium 4.6 4.7 Chloride 107 99 Carbon Dioxide 25.9 25.3 Anion Gap 9.1 9.7 BUN 36 H 41 H Creatinine 2.4 H 3.3 H Est GFR (CKD-EPI 2020) 29.21 19.93 Glucose 111 H 150 H Calcium 9.0 8.3 L Total Bilirubin 0.4 0.4 AST 19 21 ALT 22 25 Alkaline Phosphatase 65 69 Total Protein 6.9 6.8 Albumin 3.1 L 3.1 L Urine Color Red Urine Clarity Cloudy Urine pH 6.0 Ur Specific [place] 1.015 Urine Protein 100 H Urine Ketones Negative Urine Blood Large H Urine Nitrite Negative Urine Bilirubin Negative Urine Urobilinogen 0.2 Ur Leukocyte Esterase Trace H Urine RBC >50 H Urine WBC Not Applicable Ur Epithelial Cells Not Applicable Urine Crystals Not Applicable Urine Bacteria Not Applicable Urine Mucus Not Applicable Ur Culture Indicated? No Urine Glucose Negative Stone Source Stone Comment Kidney Stone Analysis 07/22/24 07/22/24 13:18 11:53 WBC 15.17 H RBC 4.46 Hgb 13.2 L Hct 39.6 L MCV 89 MCH 29.6 MCHC 33.3 RDW 12.3 Plt Count 210 MPV 10.3 Immature Gran % 0.4 Neutrophils % 87.8 Lymphocytes % 5.9 Monocytes % 5.6 Eosinophils % 0.0 Basophils % 0.3 Nucleated RBC % 0.0 Absolute Neutrophils 13.32 H Absolute Lymphocytes 0.90 L Absolute Monocytes 0.85 H Absolute Eosinophils 0.00 Absolute Basophils 0.05 Sodium 133 L Potassium 4.9 Chloride 100 Carbon Dioxide 23.7 Anion Gap 9.3 BUN 43 H Creatinine 3.5 H Est GFR (CKD-EPI 2020) 18.58 Glucose 108 H Calcium 8.2 L Total Bilirubin 0.5 AST 25 ALT 26 Alkaline Phosphatase 74 Total Protein 7.5 Albumin 3.5 Urine Color Urine Clarity Urine pH Ur Specific [place] Urine Protein Urine Ketones Urine Blood Urine Nitrite Urine Bilirubin Urine Urobilinogen Ur Leukocyte Esterase Urine RBC Urine WBC Ur Epithelial Cells Urine Crystals Urine Bacteria Urine Mucus Ur Culture Indicated? Urine Glucose Stone Source Pending Stone Comment Pending Kidney Stone Analysis Pending PFSH All Active Problems OLY (acute kidney injury) (Acute) Ureterolithiasis (Acute) Small fiber neuropathy (Acute) Encounter for screening for malignant neoplasm of colon (Acute) GERD (gastroesophageal reflux disease) (Chronic) Constipation (Acute) Chest pain (Acute) Acute kidney injury superimposed on chronic kidney disease (Acute) Breathing difficulty (Acute) BPH associated with nocturia (Acute) CKD (chronic kidney disease) stage 3, GFR 30-59 ml/min (Acute) Family history of colon cancer in mother (Acute) Colon polyps (Acute ~04/02/18) benign Left renal mass (Acute 05/06/16) RCC s/p neph[place] [facility] [place] Unspecified essential hypertension (Acute 08/24/15) 01/2016 labwork: 10-year ASCVD risk = ~7.9% LSMs controlled on/off need for medication Adverse effect lisinopril Bilateral groin pain (Acute 08/09/16) Atopic dermatitis, unspecified (Acute 08/24/15) Diarrhea (Acute) per dr gates on 03/01/18 but also occassional constipation - elimination diet had no effect, stool studies negative (note that the sample for Cdiff was rejected) Medical History Hypothyroid Scarring alopecia Corneal abrasion Malignant neoplasm of kidney Pleuritic pain Cough Hyperplastic colon polyp Tubular adenoma of colon Renal cell carcinoma of left kidney (07/13/16) S/p nephrectomy [facility] [place] Pulmonary nodules (09/27/16) 08/[address] -- needs f/u chest CT HTN (hypertension) resolved post nephrectomy Atopic dermatitis Surgical History (Updated 07/23/24 @ 07:19 by Lucien Carrasco MD) History of ureteroscopy History of nephrectomy S/P colonoscopy (~04/02/18) x2 02/2022 Radical Nephrectomy (05/27/16) L kidney, laparoscopic. [facility] [place] [facility] [place] Family History Mother , CVA at age 78. Personal history of malignant neoplasm Colon CA dx'ed early 70s Stroke Colon cancer Father , Melanoma at age 52. Melanoma Hypertension Sister Essential hypertension Breast cancer Social History Smoking/Tobacco Use Status: Never Smoking risk assessment performed?: Yes Alcohol Intake: former Drug use: Never Substance use type: does not use Adopted: No Housing: house Number of Children: 1 What is your relationship status?: Panel score (0-1 are the most socially isolated patients): 0 Do you feel safe at home: Yes Do you feel safe in your relationship?: Yes Time Spent with Patient Time Spent with Patient: <45 minutes Time was spent: preparing to see the patient(eg.review tests), obtaining and/or reviewing separately otained hiistory, ordering medications,tests, procedures, referring, communicating with other health weekend caregiver and counseling the patient
--- NOTE | 2024-07-23 07:34 | PGE_ITS ---
Date of Service Date of service: 07/23/24 Time of Service: 07:34 Assessment and Plan Assessment and plan (1) Ureterolithiasis: Assessment and plan: His clinical improvement has been quite dramatic as expected. We will remove his Rosenbaum catheter and discharge him to home. He will need a return trip to the operating room to remove his ureteral stent. I would like a dwell time of at least 2 weeks. At the time of his stent removal, I might suggest running a flexible ureteroscope up the right side. Based on the CT scan images that were pushed over from [facility] yesterday, there are 3 additional nonobstructing stones in the lower pole of his right kidney. We may want to remove those stones before they become an issue and it would be easier to do so while his ureter is dilated from the stent I placed. Subjective Subjective Interval history since last seen: He has been pain-free since his procedure. He has produced over 5 L of urine since the stent and catheter were placed He is tolerating oral nutrition and medications. Exam Narrative Exam Narrative: He looks much better and much more comfortable than he did on admission His vital signs are documented elsewhere He is urine is pink-tinged His serum creatinine has come down to 2.4 mg/dL (3.5 mg/dL on admission with a baseline of 1.7 mg/dL) Objective Last Vital Signs Temp 37.5 C 07/23/24 04:36 Pulse 76 07/23/24 04:36 Resp 16 07/23/24 04:36 BP 127/75 07/23/24 04:36 Pulse Ox 95 07/23/24 04:36 Laboratory Results - last 24 hr 07/22/24 07/22/24 07/23/24 11:53 16:19 04: WBC 15.17 H RBC 4.46 Hgb 13.2 L Hct 39.6 L MCV 89 MCH 29.6 MCHC 33.3 RDW 12.3 Plt Count 210 MPV 10.3 Immature Gran % 0.4 Neutrophils % 87.8 Lymphocytes % 5.9 Monocytes % 5.6 Eosinophils % 0.0 Basophils % 0.3 Nucleated RBC % 0.0 Absolute Neutrophils 13.32 H Absolute Lymphocytes 0.90 L Absolute Monocytes 0.85 H Absolute Eosinophils 0.00 Absolute Basophils 0.05 Sodium 133 L 134 L Potassium 4.9 4.7 Chloride 100 99 Carbon Dioxide 23.7 25.3 Anion Gap 9.3 9.7 BUN 43 H 41 H Creatinine 3.5 H 3.3 H Est GFR (CKD-EPI 2020) 18.58 19.93 Glucose 108 H 150 H Calcium 8.2 L 8.3 L Total Bilirubin 0.5 0.4 AST 25 21 ALT 26 25 Alkaline Phosphatase 74 69 Total Protein 7.5 6.8 Albumin 3.5 3.1 L Urine Color Red Urine Clarity Cloudy Urine pH 6.0 Ur Specific [place] 1.015 Urine Protein 100 H Urine Ketones Negative Urine Blood Large H Urine Nitrite Negative Urine Bilirubin Negative Urine Urobilinogen 0.2 Ur Leukocyte Esterase Trace H Urine RBC >50 H Urine WBC Not Applicable Ur Epithelial Cells Not Applicable Urine Crystals Not Applicable Urine Bacteria Not Applicable Urine Mucus Not Applicable Ur Culture Indicated? No Urine Glucose Negative 07/23/24 06:09 WBC 20.11 H RBC 4.42 Hgb 13.1 L Hct 38.8 L MCV 88 MCH 29.6 MCHC 33.8 RDW 12.3 Plt Count 210 MPV 11.1 H Immature Gran % 0.5 Neutrophils % 83.9 Lymphocytes % 8.4 Monocytes % 7.1 Eosinophils % 0.0 Basophils % 0.1 Nucleated RBC % 0.0 Absolute Neutrophils 16.87 H Absolute Lymphocytes 1.69 Absolute Monocytes 1.43 H Absolute Eosinophils 0.00 Absolute Basophils 0.02 Sodium 142 Potassium 4.6 Chloride 107 Carbon Dioxide 25.9 Anion Gap 9.1 BUN 36 H Creatinine 2.4 H Est GFR (CKD-EPI 2020) 29.21 Glucose 111 H Calcium 9.0 Total Bilirubin 0.4 AST 19 ALT 22 Alkaline Phosphatase 65 Total Protein 6.9 Albumin 3.1 L Urine Color Urine Clarity Urine pH Ur Specific [place] Urine Protein Urine Ketones Urine Blood Urine Nitrite Urine Bilirubin Urine Urobilinogen Ur Leukocyte Esterase Urine RBC Urine WBC Ur Epithelial Cells Urine Crystals Urine Bacteria Urine Mucus Ur Culture Indicated? Urine Glucose Time Spent with Patient Time Spent with Patient: <25 minutes Time was spent: preparing to see the patient(eg.review tests), obtaining and/or reviewing separately otained hiistory, referring, communicating with other health career development manager and counseling the patient
[2024-07-23 07:55] VITALS: BP 132/76; PULSE 73; RESP 20; TEMP 36.9; O2SAT 99
--- NOTE | 2024-07-23 07:57 | NUR.NOTE ---
Nursing Note: pyle d/c'd per provider order. 200 pink urine in pyle bag. 10cc out of balloon, some sanguineous drainage noted from tip of penis; dried.
--- NOTE | 2024-07-23 10:09 | PDOC.CMIN ---
Date of service: 07/23/24 Time of Service: 10:09 Care Management Initial Assmt Initial Assessment Reason for Hospitalization: Right ureteral stone Functional Status/Living Situation Town of Residence: [place] Advance Directives Advance Directives: Do you have an Advance Directive: N 01/29/16 16:40 AD On File at [facility]: N 01/25/16 07:54 Date Asked 07/22/24 07/22/24 10:43 AD Date Reviewed COLST On File at [facility] COLST Date Scanned Code Status Resuscitation Status Full Code Care Team Visit Care Team Role Provider Type DAISY Pedro Primary Care Provider [employer] Galileo Phillips MD Emergency Provider [facility] STAFF PHYSICIAN Lucien Carrasco MD Admit Provider [facility] STAFF PHYSICIAN Attending Provider Social Determinants of Health Screening Social Determinants of Health last assessed: 07/23/24 Will the Patient Participate in the Screening?: Yes Do you worry about having a steady place to live?: no Problems where you live: no known problems In the past 12 months, have you had to go without electric, gas, oil or water in your home?: no Have you or anyone in your house had to go without enough food to eat?: no Has lack of transportation kept you from medical appointments or from doing things needed for daily living?: no Has anyone in your life made you feel unsafe or unsupported?: no How hard is it for you to pay for the very basics like food, housing, medical care, and heating? Would you say it is:: Not hard at all Do you want help finding or keeping work or a job?: I do not need or want help If for any reason you need help with day-to-day activities such as bathing, preparing meals, shopping, managing finances, etc., do you get the help you need?: I don?t need any help How often do you feel lonely or isolated from those around you?: Never Do you speak a language other than Bulgarian at home?: Yes Does the patient want assistance with any of the above?: No Health Related Social Needs Health related social needs: education (Z55.6) PFSH All Active Problems (Updated 07/23/24 @ 07:35 by Lucien Carrasco MD) OLY (acute kidney injury) (Acute) Small fiber neuropathy (Acute) Encounter for screening for malignant neoplasm of colon (Acute) GERD (gastroesophageal reflux disease) (Chronic) Constipation (Acute) Chest pain (Acute) Acute kidney injury superimposed on chronic kidney disease (Acute) Breathing difficulty (Acute) BPH associated with nocturia (Acute) CKD (chronic kidney disease) stage 3, GFR 30-59 ml/min (Acute) Family history of colon cancer in mother (Acute) Colon polyps (Acute ~04/02/18) benign Left renal mass (Acute 05/06/16) RCC s/p nephrectomy [facility] [place] Unspecified essential hypertension (Acute 08/24/15) 01/2016 labwork: 10-year ASCVD risk = ~7.9% LSMs controlled on/off need for medication Adverse effect lisinopril Bilateral groin pain (Acute 08/09/16) Atopic dermatitis, unspecified (Acute 08/24/15) Diarrhea (Acute) per dr gates on 03/01/18 but also occassional constipation - elimination diet had no effect, stool studies negative (note that the sample for Cdiff was rejected) Medical History (Updated 07/23/24 @ 07:35 by Lucien Carrasco MD) Ureterolithiasis Hypothyroid Scarring alopecia Corneal abrasion Malignant neoplasm of kidney Pleuritic pain Cough Hyperplastic colon polyp Tubular adenoma of colon Renal cell carcinoma of left kidney (07/13/16) S/p nephrectomy [facility] [place] Pulmonary nodules (09/27/16) 08/[address] -- needs f/u chest CT HTN (hypertension) resolved post nephrectomy Atopic dermatitis Surgical History (Updated 07/23/24 @ 07:19 by Lucien Carrasco MD) History of ureteroscopy History of nephrectomy S/P colonoscopy (~04/02/18) x2 02/2022 Radical Nephrectomy (05/27/16) L kidney, laparoscopic. [facility] [place] Family History Mother , CVA at age 78. Personal history of malignant neoplasm Colon CA dx'ed early 70s Stroke Colon cancer Father , Melanoma at age 52. Melanoma Hypertension Sister Essential hypertension Breast cancer Social History Smoking/Tobacco Use Status: Never Smoking risk assessment performed?: Yes Alcohol Intake: former Drug use: Never Substance use type: does not use Adopted: No Housing: house Number of Children: 1 What is your relationship status?: Panel score (0-1 are the most socially isolated patients): 0 Do you feel safe at home: Yes Do you feel safe in your relationship?: Yes
[2024-08-02 17:10] LABS: Source: Right Ureter
== END 2024-07-23 10:05 | disposition home or self-care (01) ==
LOC: ER 11:58 → MS 14:40
PROVIDERS: Admitting Provider Urology; Emergency Provider Emergency Medicine; PCP Physician Assistant Medical; Visit Provider Urology
PROC: (CPT 52352; principal; 2024-07-22 12:30)
DX: N20.1 Calculus of ureter (principal); N17.9 Acute kidney failure, unspecified; G62.9 Polyneuropathy, unspecified; K21.9 Gastro-esophageal reflux disease without esophagitis; Z90.5 Acquired absence of kidney; K59.00 Constipation, unspecified; N40.1 Benign prostatic hyperplasia with lower urinary tract symptoms; R35.1 Nocturia; Z85.528 Personal history of other malignant neoplasm of kidney; I12.9 Hypertensive chronic kidney disease with stage 1 through stage 4 chronic kidney disease, or unspecified chronic kidney disease; Z80.0 Family history of malignant neoplasm of digestive organs; N18.30 Chronic kidney disease, stage 3 unspecified; E03.9 Hypothyroidism, unspecified
CPT/HCPCS: 52352; 52332; 36415; 80053; 93005; 99223; 99238; 99285; 74420; 81003; 81015; 82365; 85025; 93010; G0378; J0131; J0690; J1100; J2405; J2704; Q9967

== ENCOUNTER 2024-07-30 02:33 | Outpatient (CLI) | payer MEDICARE, OTHER, SELFPAY ==
[2024-07-30 10:46] LABS: Anion Gap 6.2 mmol/L (3-11); BUN 27 mg/dL (7-18); CO2 30.8 mmol/L (21.0-32.0); CREATININE 1.7 mg/dL (0.70-1.30); Calcium 8.7 mg/dL (8.5-10.1); Chloride 104 mmol/L (98-107); Estimated GFR 44.18 (mL/min/1.73m2); Glucose 93 mg/dL (74-106); Potassium 4.7 mmol/L (3.5-5.1); Sodium 141 mmol/L (136-145)
== END 2024-07-30 02:34 | disposition home or self-care (01) ==
LOC: LBO 02:34
PROVIDERS: PCP Physician Assistant Medical; Visit Provider Physician Assistant Medical
DX: N17.9 Acute kidney failure, unspecified (principal)
CPT/HCPCS: 36415; 80048

== ENCOUNTER 2024-08-05 09:23 | Day surgery (SDC) | payer MEDICARE, OTHER, SELFPAY ==
[2024-08-05 09:49] VITALS: BP 139/88; PULSE 74; RESP 18; TEMP 36.9; O2SAT 97
[2024-08-05] MEDS: Lactated Ringers 1,000 ML 80 ML IV (10:27)
--- NOTE | 2024-08-05 11:15 | W.ANESPRE ---
General Info Date of Service Date Performed: 08/05/24 Height: 6 ft 1 in Weight: 71.7 kg Body Mass Index (BMI): 20.8 Surgical Procedure: Operation Date: 08/05/24 10:25 Proposed Procedure Side Surgeon p Cystoscopy/Possible Laser/Retrograde/Ureteroscopy/ Stent Removal Right Lucien Carrasco MD Meds Allergies and Home Medications Allergies Allergy/AdvReac Type Severity Reaction Status Date / Time Iodinated Contrast Media AdvReac Severe Other (See Verified 08/05/24 09:42 Comment) lisinopril AdvReac Severe COUGH & Verified 08/05/24 09:42 ?ANGIOEDEMA NSAIDS (Non-Steroidal AdvReac RENAL Verified 08/05/24 09:42 Anti-Inflamma FAILURE Home Medication ?Medication ?Instructions ?Recorded acetaminophen 500 mg tablet 500 - 1,000 mg PO PRN PRN 04/22/19 (Tylenol Extra Strength) levothyroxine 50 mcg capsule 75 mcg PO DAILY 01/31/22 tadalafil 5 mg tablet See Rx Instructions .Route 10/03/23 .COMPLEX #90 tabs Current Visit Medications: Current Medications Generic Name Dose Route Start Last Admin Trade Name Freq PRN Reason Stop Dose Admin Ringer's Solution 1,000 mls @ 80 mls/hr 08/05/24 06:00 08/05/24 10:27 IV 08/05/24 23:59 80 mls/hr INFUSION DENIZ Administration Cefazolin Sodium/Dextrose 2 gm in 50 mls @ 100 mls/hr 08/05/24 06:00 Ancef Duplex IVPB 08/05/24 23:59 PREOP DENIZ IV Miscellaneous Supplies 1 each 08/05/24 06:00 Iv Access IV 08/05/24 23:59 DIRECTED DENIZ Sodium Chloride 0 ml 08/05/24 06:00 Normal Saline Flush 10 Ml Syr IV 08/05/24 23:59 PRN PRN Sodium Chloride 0 ml 08/05/24 06:00 Normal Saline 10 Ml Vial IJ 08/05/24 23:59 DIRECTED PRN Sterile Water 0 ml 08/05/24 06:00 Water,Injection,Sterile 10 Ml Vial IJ 08/05/24 23:59 DIRECTED PRN PFSH Active Problems Active Problems: Problem Status Onset Code Small fiber neuropathy Acute G62.9 Encounter for screening for malignant neoplasm of colon Acute Z12.11 GERD (gastroesophageal reflux disease) Chronic K21.9 Constipation Acute K59.00 Chest pain Acute R07.9 Acute kidney injury superimposed on chronic kidney disease Acute N17.9, N18.9 Breathing difficulty Acute R06.89 BPH associated with nocturia Acute N40.1, R35.1 CKD (chronic kidney disease) stage 3, GFR 30-59 ml/min Acute N18.3 Family history of colon cancer in mother Acute Z80.0 Colon polyps Acute ~04/02/18 K63.5 Left renal mass Acute 05/06/16 N28.89 Unspecified essential hypertension Acute 08/24/15 I10 Bilateral groin pain Acute 08/09/16 R10.30 Atopic dermatitis, unspecified Acute 08/24/15 L20.9 Diarrhea Acute R19.7 Medical History Medical History Hypothyroid Scarring alopecia Corneal abrasion Malignant neoplasm of kidney Pleuritic pain Cough Hyperplastic colon polyp Tubular adenoma of colon Renal cell carcinoma of left kidney (07/13/16) S/p nephrectomy [facility] [place] Pulmonary nodules (09/27/16) 08/[address] -- needs f/u chest CT HTN (hypertension) resolved post nephrectomy Atopic dermatitis Medical History Comments:: 1 kidney, nephrectomy d/t CA 2016 Surgical History Surgical History History of ureteroscopy History of nephrectomy S/P colonoscopy (~04/02/18) x2 02/2022 Radical Nephrectomy (05/27/16) L kidney, laparoscopic. [facility] [place] Tobacco Smoking/Tobacco Use Status: Never Alcohol Alcohol Intake: former Substance Use Substance use: Never Substance use type: does not use Vital Signs and Lab Results Vital Signs Most Recent Vital Signs in EMR: Most Recent Vital Signs Temp Pulse Resp BP Pulse Ox 36.9 C 74 18 139/88 97 08/05/24 09:49 08/05/24 09:49 08/05/24 09:49 08/05/24 09:49 08/05/24 09:49 Lab Results Blood Type / Crossmatch: No Data to Display Complete Blood Count: White Blood Count 20.11 10^3/uL (4.4-10.8) H 07/23/24 06:09 Red Blood Count 4.42 10^6/uL (4.36-5.78) 07/23/24 06:09 Hemoglobin 13.1 g/dL (13.5-17.5) L 07/23/24 06:09 Hematocrit 38.8 % (40.0-50.0) L 07/23/24 06:09 Platelet Count 210 10^3/uL (130-400) 07/23/24 06:09 Complete Metabolic Panel: Sodium 141 mmol/L (136-145) 07/30/24 10:04 Potassium 4.7 mmol/L (3.5-5.1) 07/30/24 10:04 Chloride 104 mmol/L (98-107) 07/30/24 10:04 Carbon Dioxide 30.8 mmol/L (21.0-32.0) 07/30/24 10:04 BUN 27 mg/dL (7-18) H 07/30/24 10:04 Creatinine 1.7 mg/dL (0.70-1.30) H 07/30/24 10:04 Est GFR (CKD-EPI 2020) 44.18 (mL/min/1.73m2) 07/30/24 10:04 Calcium 8.7 mg/dL (8.5-10.1) 07/30/24 10:04 Albumin 3.1 g/dL (3.4-5.0) L 07/23/24 06:09 Glucose 93 mg/dL (74-106) 07/30/24 10:04 Liver Function Panel: Alanine Aminotransferase (ALT/SGPT) 22 U/L (16-63) 07/23/24 06:09 Aspartate Amino Transf (AST/SGOT) 19 U/L (15-37) 07/23/24 06:09 Coagulation Panel: No Data to Display Cardiac Panel: No Data to Display Arterial Blood Gas: No Data to Display Venous Blood Gas: No Data to Display Pancreas Panel: No Data to Display Thyroid Panel: No Data to Display Infectious Disease: No Data to Display Blood Cultures: No Data to Display Toxicology Panel: No Data to Display Imaging and Studies Imaging and Studies Study information below may be from another EMR and interpreted by another provider. Please see original notes in EMR for more complete details. EKG Summary: 07/22/24 Conclusion Sinus bradycardia...rate< 60 Right bundle branch block...QRSd>120, terminal axis(90,270) No STEMI Stress Test Summary: Indications: Patient reports for the past 3 months he suddenly has been experiencing SOB with exercise, such as climbing stairs and after walking on treadmill for 5 minutes. This SOB may last for hours. He also states midsternal/substernal chest tightness may start 1 hour after exercise activity. Medical History Medical History: Left Renal Cell Cancer S/P Nephrectomy Cardiac Medications: None, Allergies: Lisinopril Cardiac Risk Factors: FHX of CAD Previous Cardiac Procedures: None Pretest Chest Pain Characteristics: Mild Chest midsternal/substernal Tightness Exercise History: Physically active Physical Disabilities: None Lung Sounds: Clear to auscultation Heart Sounds: Regular Stress Test Details Test: Exercise stress testing was performed using a [place] protocol. Nuclear Acquisition: Rest Tc-99m/Stress Tc-99m 1 day Rest Isotope: Tc-99m Sestamibi. Dose: 12.1 Date: 04/22/2019 Injection Time: 0900 Stress Isotope: Tc-99m Sestamibi. Dose: 37.6 Date: 04/22/2019 Injection Time: 1036 HR Max Heart Rate (APMHR): 160 bpm Resting HR Supine: 66 bpmTarget HR (85% APMHR): 136 bpm Resting HR Standin bpm Max HR Achieved: 156 bpm % of APMHR: 97 HR response to stress: Normal HR response to stress BP Resting BP Supine: 120/84 mmHg Resting BP Standin/80 mmHg Max BP: 164/82 mmHg BP response to stress: Normal blood pressure response to stress. ECG Resting ECG: Sinus Rhythm ST Change: Normal Ectopy: Rare PAC's, Rare PVC's Stress ECG: Sinus Tachycardia ST Change: Normal Arrhythmia: None Recovery ECG: Sinus Rhythm Recovery ST Change: Normal Clinical Reason for Termination: Dyspnea, Exercise duration: 9 min55 sec Highest Stage Achieved: Stage 4: 4.2 mph at 16% grade. Exercise capacity: 11.68 METs Functional Capacity: Average Capacity Stress ECG Conclusion 1. Patient exercised for 9 minutes 55 seconds (11.6 METS) 2. The rate-pressure product was 25,000. 3. There was no evidence of ischemia on the ECG portion of this exam Echocardiogram Summary: 12/30/19 Conclusion Left Ventricle : The left ventricle is normal size. Left ventricular systolic function is normal. There is normal left ventricular wall thickness. There is normal LV segmental wall motion. The left ventricular diastolic function is normal. LVEF is estimated to be 55-60% Right Ventricle : The right ventricle is normal size. The right ventricular systolic function is normal. Atria : The left atrium size is normal. The right atrium size is normal. Aortic Valve : Aortic valve leaflets are mildly thickened. Aortic valve is trileaflet. No aortic regurgitation is present. There is no aortic valvular stenosis. Mitral Valve : Mitral valve leaflets are mildly thickened. Trace mitral regurgitation. No evidence of mitral valve stenosis. Tricuspid Valve : The tricuspid valve is normal in structure. Trace tricuspid regurgitation. Pulmonic Valve : Pulmonic valve is not well visualized. Great Vessels : The aortic root is normal in size. The IVC is dilated. The IVC collapses >50% with inspiration. Estimated RVSP is 25-33 mmHg. There is no prior echocardiogram available for comparison. Anesthesia Assessment and Plan Anesthesia History Personal History: No History of Anesthesia Complications Family History: No Family History of Anesthesia Complications Exercise Tolerance Exercise Tolerance: Metabolic Equivalents>4 Pertinent Negatives Pertinent Negatives: No Symptoms of GERD, No Major Cardiovascular Symptoms or Complaints and No Major Pulmonary Symptoms or Complaints Cardiac & Pulmonary Exam Cardiac Exam: Normal S1/S2 Heart Sounds Pulmonary Exam: Clear Bilateral Breath Sounds Implantable Cardiac Device Does patient have a Pacemaker or an ICD?: No Airway Exam Known Difficult Airway: No Mallampati Class: 2 Mouth Opening: Normal (> 3cm) Thyromental Distance: Greater than 3 cm Neck Range of Motion: Full ROM Neck Circumference: Normal Teeth Condition: Normal Dentition ASA Classification ASA Score: ASA 2 Emergency Case?: No NPO Status NPO Status: NPO Clears >2 hours, Solids >8 hours Anesthesia Plan Resuscitation Status: Full Code Anesthesia Technique: General Anesthesia Airway Planned: Natural Airway Monitors Used: Standard Monitors Preoperative Comments:: GETA as back up
[2024-08-05 11:19] VITALS: BMI 20.8
--- NOTE | 2024-08-05 11:19 | HPE_ITS ---
Date of service: 08/05/24 Time of Service: 11:20 Assessment and Plan Assessment and plan (1) History of ureteroscopy: Assessment and plan: We will do cystoscopy and remove his ureteral stent. We will then follow-up with a retrograde pyelogram to ensure that the kidney drains properly. His follow-up will include a renal ultrasound in about 6 weeks to rule out silent hydronephrosis. History of Present Illness History of Present Illness Chief Complaint: Right ureteral stone Narrative: This is a 63-year-old gentleman who has a history of renal cell carcinoma of the left kidney. He had undergone a left nephrectomy and has had no subsequent evidence of recurrent tumor. He presented to an outside institution with right flank pain and was found to have an obstructing right ureteral stone. He was initially treated conservatively but his stone would not progress. His renal function worsened. He was then transferred to our facility where I was able to do ureteroscopy and stone extraction. We placed a right ureteral stent at that time. He presents now for stent removal and retrograde pyelogram to ensure that the right kidney has recovered from the procedure Review of Systems Narrative: No fevers or chills No vision change or dysphasia No diabetes or thyroid No shortness of breath, cough or hemoptysis No chest pain or palpitations No nausea, vomiting, hepatitis, ulcers, jaundice No seizures, strokes or peripheral neuropathy No bleeding disorders or anemia No gout PFSH All Active Problems Small fiber neuropathy (Acute) Encounter for screening for malignant neoplasm of colon (Acute) GERD (gastroesophageal reflux disease) (Chronic) Constipation (Acute) Chest pain (Acute) Acute kidney injury superimposed on chronic kidney disease (Acute) Breathing difficulty (Acute) BPH associated with nocturia (Acute) CKD (chronic kidney disease) stage 3, GFR 30-59 ml/min (Acute) Family history of colon cancer in mother (Acute) Colon polyps (Acute ~04/02/18) benign Left renal mass (Acute 05/06/16) RCC s/p neph[place] [facility] [place] Unspecified essential hypertension (Acute 08/24/15) 01/2016 labwork: 10-year ASCVD risk = ~7.9% LSMs controlled on/off need for medication Adverse effect lisinopril Bilateral groin pain (Acute 08/09/16) Atopic dermatitis, unspecified (Acute 08/24/15) Diarrhea (Acute) per dr gates on 03/01/18 but also occassional constipation - elimination diet had no effect, stool studies negative (note that the sample for Cdiff was rejected) Medical History Hypothyroid Scarring alopecia Corneal abrasion Malignant neoplasm of kidney Pleuritic pain Cough Hyperplastic colon polyp Tubular adenoma of colon Renal cell carcinoma of left kidney (07/13/16) S/p nephrectomy [facility] [place] Pulmonary nodules (09/27/16) 08/[address] -- needs f/u chest CT HTN (hypertension) resolved post nephrectomy Atopic dermatitis Surgical History History of ureteroscopy History of nephrectomy S/P colonoscopy (~04/02/18) x2 02/2022 Radical Nephrectomy (05/27/16) L kidney, laparoscopic. [facility] [place] Family History Mother , CVA at age 78. Personal history of malignant neoplasm Colon CA dx'ed early 70s Stroke Colon cancer Father , Melanoma at age 52. Melanoma Hypertension Sister Essential hypertension Breast cancer Social History Smoking/Tobacco Use Status: Never Smoking risk assessment performed?: Yes Alcohol Intake: former Drug use: Never Substance use type: does not use Adopted: No Housing: house Number of Children: 1 What is your relationship status?: Panel score (0-1 are the most socially isolated patients): 0 Do you feel safe at home: Yes Do you feel safe in your relationship?: Yes Meds Allergies and Home Medications Allergies Allergy/AdvReac Type Severity Reaction Status Date / Time Iodinated Contrast Media AdvReac Severe Other (See Verified 08/05/24 09:42 Comment) lisinopril AdvReac Severe COUGH & Verified 08/05/24 09:42 ?ANGIOEDEMA NSAIDS (Non-Steroidal AdvReac RENAL Verified 08/05/24 09:42 Anti-Inflamma FAILURE Home Medications ?Medication ?Instructions ?Recorded ?Confirmed ?Type acetaminophen 500 mg tablet 500 - 1,000 mg PO PRN PRN 04/22/19 08/02/24 History (Tylenol Extra Strength) levothyroxine 50 mcg capsule 75 mcg PO DAILY 01/31/22 08/05/24 History tadalafil 5 mg tablet See Rx Instructions .Route 10/03/23 08/02/24 Rx .COMPLEX #90 tabs Exam Const General: cooperative and comfortable Neck Neck: supple Resp Effort & Inspection: normal respiratory effort Auscultation: clear to auscultation bilaterally Cardio Rate: regular rate Rhythm: regular rhythm GI Palpation: soft Neuro General: patient alert, patient awake and patient oriented x3 Results Last Vital Signs Temp 36.9 C 08/05/24 09:49 Pulse 74 08/05/24 09:49 Resp 18 08/05/24 09:49 BP 139/88 08/05/24 09:49 Pulse Ox 97 08/05/24 09:49 Time Spent Time spent with Patient: <40 minutes Time was spent: other
[2024-08-05] MEDS: ceFAZolin 2 GM/50 ML BAG IVPB (11:45)
[2024-08-05] MEDS: Lidocaine 2% Jelly 11 ML SYR (11:57)
[2024-08-05] MEDS: Omnipaque 300 MG/ML 50 ML BTL (12:00)
--- NOTE | 2024-08-05 12:10 | DI.RAD_ITS ---
Exam(s) XR RETROGRADE IN OR EXAM: XR RETROGRADE IN OR CLINICAL HISTORY: Right Ureterolithiasis. TECHNIQUE: Fluoroscopy was provided for the referring physician for guidance retrograde procedure. COMPARISON: CT CT ABD PELVIS WO IV OR ORAL CONTRAST from 07/22/2024 XA XR RETROGRADE IN OR from 07/22/2024 FINDINGS: Please see procedure note for details. Fluoro time: 38.2 seconds RADIATION DOSE DELIVERED: Ka,r=3.8 mGy
--- NOTE | 2024-08-05 12:16 | W.PM.DSUDISC ---
Date of service: 08/05/24 Discharge Plan Disposition Patient Disposition: Home Condition: Stable Discharge Details Reason For Visit: stent removal Attending Provider: Lucien Carrasco Primary Care Provider: Arnol Bryant Home Meds and New Rx's Prescriptions: No Action tadalafil 5 mg tablet See Rx Instructions .ROUTE .COMPLEX Qty: 90 4RF Dose Instruction: TAKE 1 TABLET BY MOUTH DAILY FOR URINE FLOW Rx Instructions: TAKE 1 TABLET BY MOUTH DAILY FOR URINE FLOW levothyroxine 50 mcg capsule 75 mcg PO DAILY acetaminophen [Tylenol Extra Strength] 500 mg Tablet 500 - 1,000 mg PO PRN PRN Discharge Instructions Additional Instructions: Followup 4 to 6 weeks for ultrasound in the office and to review stone analysis Activity:: Activity as Tolerated Shower/Bathe:: 24 hours Diet:: As Tolerated Discharge Orders Discharge Orders: Discharge Order (Routine); Ordered 08/05/24 Ordered By: Lucien Carrasco DS: Diagnosis Discharge Diagnosis (1) History of ureteroscopy:
--- NOTE | 2024-08-05 12:17 | W.PM.OP ---
Operative Note Operative Note PRE-OP DIAGNOSIS: right ureteral stone POST-OP DIAGNOSIS: same PROCEDURE: cystoscopy, remove right ureteral stent, right retrograde pyelogram SURGEON: Lucien Carrasco ANESTHESIA TYPE: Local By Surgeon and General:No Airway Refer to Anesthesia Record ESTIMATED BLOOD LOSS: 5 PATHOLOGY: none sent COMPLICATIONS: None Patient was transported to: same day Patient's condition: stable Implants: None Indications: This is a 63-year-old gentleman who has a history of left sided renal cell carcinoma. He had undergone a left nephrectomy in the past. He recently developed a right flank pain due to an obstructing right distal ureteral stone. He was not able to pass the stone with conservative management, so he underwent ureteroscopy with stone extraction and placement of a ureteral stent. He comes back in now to have his stent removed and to do a retrograde pyelogram to ensure his solitary kidney adequately drains Findings: Good drainage from the right kidney on delayed images Procedure Description: The patient was given antibiotics and brought to the operating room on 08/05/2024. After successful induction of general anesthesia, he was placed in the dorsal lithotomy position. His genitalia was prepped and draped. 2% Xylocaine jelly was instilled into the urethra to act as a local anesthetic. A 22 Chinese rigid cystoscope was passed through the urethra into the bladder. The urethra and bladder were inspected with the 30 degree lens. The pendulous, bulbar membranous urethra's appeared normal with no strictures. The prostatic urethra showed some mild lateral lobe enlargement and an elevated bladder neck. The bladder neck was entered and the bladder mucosa was inspected. The left ureteral orifice appeared normal. The right orifice had edematous changes surrounding the stent as it protruded into the bladder. No other abnormalities were seen within the bladder. The stent was grasped with alligator forceps and brought out to the level of the urethral meatus. A guidewire was passed through the lumen of the stent and the stent was removed leaving the wire in place. A ureteral access catheter was passed over the wire and once the catheter was in the distal ureter, the wire was removed. A retrograde pyelogram was obtained by injecting Omnipaque through the access catheter under fluoroscopic guidance. There was no evidence of extravasation of contrast on injection. The catheter was then removed and we utilized delayed films to ensure adequate drainage from the right kidney down the ureter. The patient tolerated this procedure well with no complications. Date of Procedure: 08/05/24
[2024-08-05 12:18] VITALS: BP 121/74; PULSE 60; RESP 16; TEMP 36.4; O2SAT 97
--- NOTE | 2024-08-05 13:40 | W.ANESPOSTOP ---
Postoperative Evaluation Date, Time and Location Date Performed: 08/05/24 Time Performed: 12:18 Patient Location: Day Surgery Unit Vital Signs Most Recent Imported Vital Signs: Most Recent Vital Signs Temp Pulse Resp BP Pulse Ox 36.4 C L 60 16 121/74 97 08/05/24 12:18 08/05/24 12:18 08/05/24 12:18 08/05/24 12:18 08/05/24 12:18 Pain Score Most Recent Pain Score: Most Recent Pain Score Pain Level 0 08/05/24 12:18 Assessment Mental Status: Awake (Alert & Oriented to Patient Baseline) Airway and Respiratory Function: Patent airway with normal (patient baseline) respiratory exam Cardiovascular Function: Hemodynamically Stable Hydration Status: Adequately Hydrated Nausea & Vomiting: No Nausea or Vomiting Pain: Pt. Denies Any Pain Peripheral Nerve Block: Patient did not receive a nerve block
== END 2024-08-05 13:30 | disposition home or self-care (01) ==
PROVIDERS: PCP Physician Assistant Medical; Visit Provider Urology
PROC: (CPT 52005; principal; 2024-08-05 10:15)
DX: N20.1 Calculus of ureter (principal); Z85.520 Personal history of malignant carcinoid tumor of kidney
CPT/HCPCS: 52005; 74420; J0690; J1100; J1885; J2003; J2405; J2704; Q9967

== ENCOUNTER → 2024-09-20 08:44 | Outpatient (BNVA) | payer MEDICARE, OTHER, SELFPAY | PROVIDERS: PCP Physician Assistant Medical; Referring Provider Physician Assistant Medical; Visit Provider Urology | DX: Z85.528 Personal history of other malignant neoplasm of kidney (principal); N20.1 Calculus of ureter | CPT/HCPCS: 36415; 76775; 80053; 84153; 85025 ==

== ENCOUNTER 2024-09-20 10:44 | Outpatient (CLI) | payer MEDICARE, OTHER, SELFPAY ==
[2024-09-20 09:59] LABS: Abs Immature Grans 0.01 10^3/uL (0.0-0.06); Absolute Basophil Count 0.05 10^3/uL (0.0-0.2); Absolute Eosinophil Count 0.39 10^3/uL (0.0-0.7); Absolute Lymphocyte Count 1.53 10^3/uL (1.2-3.4); Absolute Monocyte Count 0.59 10^3/uL (0.1-0.8); Absolute Neutrophil Count 5.57 10^3/uL (1.2-6.7); Basophils % 0.6 %; Eosinophils % 4.8 %; HCT 38.5 % (40.0-50.0); HGB 12.9 g/dL (13.5-17.5); Immature Grans % 0.1 %; Lymphocytes % 18.8 %; MCH 29.4 pg (27.0-33.0); MCHC 33.5 % (32.0-36.0); MCV 88 fL (80-95); MPV 9.3 fL (8.0-11.0); Monocytes % 7.2 %; Neutrophils % 68.5 %; Platelet Count 323 10^3/uL (130-400); RBC 4.39 10^6/uL (4.36-5.78); RDW 12.1 % (11.8-14.1); RDW-SD 39.4 fL; WBC 8.14 10^3/uL (4.4-10.8)
[2024-09-20 10:22] LABS: ALT 19 U/L (16-63); AST 20 U/L (15-37); Albumin 3.2 g/dL (3.4-5.0); Alkaline Phosphatase 86 U/L (46-116); Anion Gap 6.9 mmol/L (3-11); BUN 31 mg/dL (7-18); Bilirubin, Total 0.3 mg/dL (0.2-1.0); CO2 27.1 mmol/L (21.0-32.0); CREATININE 1.7 mg/dL (0.70-1.30); Calcium 8.8 mg/dL (8.5-10.1); Chloride 100 mmol/L (98-107); Estimated GFR 44.18 (mL/min/1.73m2); Glucose 92 mg/dL (74-106); Potassium 4.5 mmol/L (3.5-5.1); Sodium 134 mmol/L (136-145); Total Protein 8.3 g/dL (6.4-8.2)
[2024-09-20 22:40] LABS: PSA, Diagnostic 0.8 ng/mL (<=4.5)
== END 2024-09-20 10:45 | disposition home or self-care (01) ==
PROVIDERS: PCP Physician Assistant Medical; Visit Provider Urology
DX: C64.9 Malignant neoplasm of unspecified kidney, except renal pelvis (principal); C64.2 Malignant neoplasm of left kidney, except renal pelvis; N13.8 Other obstructive and reflux uropathy; N40.1 Benign prostatic hyperplasia with lower urinary tract symptoms
CPT/HCPCS: 36415; 80053; 84153; 85025